=== PATIENT | female | born 1970 | race Caucasian/White ===

== ENCOUNTER 2018-10-05 15:43 | Emergency (ER) | payer MEDICARE, MEDICAID ==
[~2018-10-05] VITALS: Ht 162.6 cm; Wt 45.4 kg
[~2018-10-05 15:43] MED LIST: AMIT50TA3 PO; ASPI-789 PO; BUPR1PAT23; BUPR1PAT9 TD; ERYT1OIN6 OS; ESTR1TAB24; ESTR1TAB27 PO; FAMO20TA3 PO; FAMO20TA5; LAMO150T2; LAMO25TA8; LEVO150T6; LEVO175T5 PO; LEVO500T83 PO; MIRT30TA6; NF-LAMO200 PO; NITR100C PO; PREG100C; PREG100C PO; PRM12.5SU RC; PROM25TA14; PROM25TA14 PO; QUET50TA PO; TIZA2TAB4 PO; UBID1CAP53 PO; VITA1CAP PO
--- OUTSIDE RECORDS SUMMARY | 2018-10-05 15:48 | XMS REPORT | Continuity of Care Document ---
Author Organization Unknown Address Unknown Phone Unavailable Allergies There is no data. Medications There is no data. Problems There is no data. Procedures There is no data. Results Test Result Range AMYLASE - 06/09/18 10:30 AMYLASE 25 U/L 21-101 CULTURE, STOOL - 06/11/18 12:00 SALMONELLA AND SHIGELLA, CULTURE NRG CULTURE, URINE - 08/06/18 18:00 CULTURE, URINE, ROUTINE NRG TSH w/ FREE T4 - 08/21/18 11:30 TSH 0.70 mIU/L NRG T4, FREE 1.2 ng/dL 0.8-1.8 PDM - 09 PANEL (PROFILE 1) - 09/03/18 13:45 Prescribed Drug 1 Marinol(TM) NRG Creatinine 104.7 mg/dL > or=20.0 pH 7.07 4.5 - 9.0 Oxidant NEGATIVE mcg/mL <200 Amphetamines NEGATIVE ng/mL <500 medMATCH Amphetamines CONSISTENT NRG Benzodiazepines NEGATIVE CONFIRMED ng/mL <100 Marijuana Metabolite POSITIVE ng/mL <20 Cocaine Metabolite NEGATIVE ng/mL <150 medMATCH Cocaine Metab CONSISTENT NRG Opiates NEGATIVE ng/mL <100 medMATCH Opiates CONSISTENT NRG Oxycodone NEGATIVE ng/mL <100 medMATCH Oxycodone CONSISTENT NRG COMMENT NRG Alphahydroxyalprazolam NEGATIVE ng/mL <25 medMATCH aOH alprazolam CONSISTENT NRG Alphahydroxymidazolam NEGATIVE ng/mL <50 medMATCH aOH midazolam CONSISTENT NRG Alphahydroxytriazolam NEGATIVE ng/mL <50 medMATCH aOH triazolam CONSISTENT NRG Aminoclonazepam NEGATIVE ng/mL <25 medMATCH Aminoclonazepam CONSISTENT NRG Hydroxyethylflurazepam NEGATIVE ng/mL <50 medMATCH OH,Et flurazepam CONSISTENT NRG Lorazepam NEGATIVE ng/mL <50 medMATCH Lorazepam CONSISTENT NRG Nordiazepam NEGATIVE ng/mL <50 medMATCH Nordiazepam CONSISTENT NRG Oxazepam NEGATIVE ng/mL <50 medMATCH Oxazepam CONSISTENT NRG Temazepam NEGATIVE ng/mL <50 medMATCH Temazepam CONSISTENT NRG Marijuana Metabolite 381 ng/mL <5 medMATCH Marijuana Metab CONSISTENT NRG Barbiturates NEGATIVE ng/mL <300 medMATCH Barbiturates CONSISTENT NRG Methadone Metabolite NEGATIVE ng/mL <100 medMATCH Methadone Metab CONSISTENT NRG Phencyclidine NEGATIVE ng/mL <25 medMATCH Phencyclidine CONSISTENT NRG CULTURE, GENITAL - 09/20/18 16:37 CULTURE, GENITAL NRG Encounters ACCT No. Visit Date/Time Discharge Status Pt. Type Provider Facility Loc./Unit Complaint [id number] 09/20/2018 16:00:00 09/20/2018 23:59:59 [id number] 09/20/2018 16:00:00 Document Registration [id number] 09/03/2018 13:20:00 Document Registration [id number] 08/21/2018 09:20:00 Document Registration [id number] 08/06/2018 16:00:00 Document Registration [id number] 06/09/2018 10:00:00 Document Registration [id number] 06/03/2018 11:30:00 Document Registration
--- OUTSIDE RECORDS SUMMARY | 2018-10-05 15:48 | XMS REPORT ---
Author Author TORO ALEXANDER Organization [facility] Address [address] [place] [address] Care Team Providers Care Forklift Technician Name Role Phone BENJAMIN TORO Unavailable PROBLEMS Type Condition ICD9-CM Code ZIQ37-EL Code Onset Dates Condition Status SNOMED Code Problem Spasm of muscle M62.838 Nov, 0 16035545 Problem Mid back pain M54.9 Aug, 0 688542625 Problem Gastritis and duodenitis K29.90 Feb, 0 603875235 Problem H/O sciatica Z86.69 Sep, 0 Problem Spondylosis of lumbar region without myelopathy or radiculopathy M47.816 Nov, 0 98181238 Problem Abnormal weight loss R63.4 Aug, 0 966726568 Problem Sciatica M54.30 June, 0 29082980 Problem Tobacco abuse counseling Z71.6 May, 0 300177686 Problem Bulging lumbar disc M51.26 Apr, 0 46494043 Problem Anxiety and depression F41.9 Mar, 0 601249185 Problem Diarrhea R19.7 June, 0 50932474 Problem Acute back pain M54.9 Oct, 0 053709261 Problem Drug withdrawal F19.939 Jul, 0 336700435 Problem Migraine variant with headache 346.20 Jan, 0 233367419 Problem Poor venous access 459.89 June, 0 487520456 Problem Laryngitis, acute J04.0 Sep, 0 3164379 Problem H/O sciatica V12.49 Sep, 0 Problem Folliculitis and perifolliculitis L73.9 Jan, 0 74019076 Problem Bulging lumbar disc 722.10 Apr, 0 29409122 Problem TSH (thyroid-stimulating hormone deficiency) 244.8 Aug, 0 430870183 Problem Acute hemorrhoid 455.6 15 Jul, 2015 0 32117410 Problem Blurry vision, bilateral 368.8 Jan, 0 62204335 Problem TSH (thyroid-stimulating hormone deficiency) E03.8 Aug, 0 06182577 Problem Acute hemorrhoid K64.9 Jul, 0 49674413 Problem Folliculitis and perifolliculitis 704.8 Jan, 0 986223881 Problem Vaginal dryness N89.8 Sep, 0 28936759 Problem Hypokalemia E87.6 Apr, 0 58147785 Problem Acute left-sided back pain with sciatica 724.3 Dec, 0 59068893 Problem Anxiety and depression 300.00 Mar, 0 061535534 Problem Dehydration E86.0 Apr, 0 85129161 Problem Thoracic or lumbosacral neuritis or radiculitis, unspecified WNS8179 Apr, 0 597376866 Problem Acute gastritis without hemorrhage 535.00 Jul, 0 87211029 Problem Other and unspecified closed fractures of proximal end of radius (alone) S52.109A Sep, 0 36523246 Problem Spondylosis of lumbar region without myelopathy or radiculopathy 721.3 Nov, 0 26854038 Problem Tobacco abuse counseling V65.42 May, 0 955676017 Problem Acute midline thoracic back pain 724.1 Mar, 0 661440153 Problem Status post hemorrhoidectomy Z98.890 Sep, 0 094542630 Problem Diarrhea 787.91 June, 0 41961190 Problem Status post hemorrhoidectomy V45.89 Sep, 0 70009971 Problem Other and unspecified closed fractures of proximal end of radius (alone) 813.07 Sep, 0 70873884 Problem Migraine variant with headache G43.809 Jan, 0 747394202 Problem Abnormal weight loss 783.21 Aug, 0 908763442 Problem Laryngitis, acute 464.00 Sep, 0 6713734 Problem Mid back pain 724.5 Aug, 0 205059189 Problem Low serum T4 level R79.89 Mar, 0 290326424 Problem Hypokalemia 276.8 Apr, 0 06502636 Problem Low serum T4 level 794.5 Mar, 0 601678439 Problem Vaginal dryness 625.8 Sep, 0 78127924 Problem Neck pain on right side 723.1 Jan, 0 36858212 Problem Skin lesion 709.9 June, 0 44363689 Problem Acute back pain 724.5 Oct, 0 129586378 Problem Leukocytosis 288.60 Jul, 0 691821793 Problem Acute left-sided back pain with sciatica M54.42 Dec, 0 95747396 Problem Acute cystitis without hematuria 595.0 Jul, 0 70353809 Problem Reactive depression (situational) F32.9 Feb, 0 04487978 Problem Poor venous access I87.8 June, 0 518276600 Problem Acute gastritis without hemorrhage K29.00 Jul, 0 89319389 Problem Skin lesion L98.9 June, 0 39941017 Problem Blurry vision, bilateral H53.8 Jan, 0 33526185 Problem Dehydration 276.51 Apr, 0 82303760 Problem Lumbago M54.5 June, 0 393902349 Problem Leukocytosis D72.829 Jul, 0 327304709 Problem Acute midline thoracic back pain M54.6 Mar, 0 542207466 Problem Neck pain on right side M54.2 Jan, 0 01618925 Problem Cough R05 Aug, 0 78129026 Problem Acute cystitis without hematuria N30.00 Jul, 0 42774227 Problem Lumbago with sciatica, left side M54.42 Active 665398441 Problem Hypothyroidism (acquired) E03.9 Active 662642044 Problem Gastritis and duodenitis 535.50 Feb, 0 532962328 Problem Cough 786.2 Aug, 0 83798138 Problem Intractable cyclical vomiting with nausea G43.A1 Active 69362240 Problem Nausea with vomiting R11.2 Apr, 0 67458380 Problem Nausea with vomiting 787.01 Apr, 0 89318521 Problem Lumbago 724.2 June, 0 775734119 Problem Reactive depression (situational) 300.4 Feb, 0 10249721 Problem Spasm of muscle 728.85 Nov, 0 07130864 Problem Other chronic pain G89.29 Active 65027018 Problem Sciatica 724.3 June, 0 23544597 Problem Chronic fatigue R53.82 Active 33024008 Problem Thoracic or lumbosacral neuritis or radiculitis, unspecified 724.4 Apr, 0 050973156 Problem Chronic pain G89.29 Active 77312573 Problem Mood disorder F39 Active 67171356 Problem Drug withdrawal 292.0 Jul, 0 150974984 ALLERGIES No Information ENCOUNTERS Encounter Location Date Diagnosis [address] [address] May, TSH (thyroid-stimulating hormone deficiency) E03.8 [facility] [address] [address] May, [address] [address] May, [address] [address] May, [address] [address] May, Well woman exam (no gynecological exam) Z00.00 and Diarrhea, unspecified type R19.[address] [address] May, [facility] [id number], [place] [address] May, [address] [address] May, [address] [address] May, Intractable cyclical vomiting with nausea G43.A1 ; Chronic pain G89.29 ; Hypothyroidism (acquired) E03.9 ; Mood disorder F39 and Well woman exam (no gynecological exam) Z00.[address] [address] May, Intractable cyclical vomiting with nausea G43.A1 [address] [address] Apr, Breast lump in female N63.[address] [place] [address] Apr, Breast lump N63.0 [facility] [address] [place] [address], [place] [address] Apr, Breast lump in female N63.0 [facility] [address] [place] [address] Apr, [facility] [id number] [place] [address], [place] [address] Apr, [facility] [id number] [place] [address], [place] [address] Apr, Abdominal pain R10.9 [facility] [id number] [place] [address], [place] [address] Apr, Generalized abdominal pain R10.84 and Chronic pain G89.29 [facility] [id number] [place] [address], [place] [address] Apr, [facility] [address] [place] [address], [place] [address] Apr, Breast lump in female N63.0 [facility] [id number] [place] [address], [place] [address] Apr, [facility] [address] [place] [address], [place] [address] Apr, [facility] [address] [place] [address], [place] [address] Apr, [facility] [id number] [place] [address], [place] [address] Apr, Cachexia R64 and Lumbago with sciatica, left side M54.42 [facility] [id number] [place] [address], [place] [address] Mar, [facility] [id number] [place] [address], [place] [address] Mar, [facility] [id number] [place] [address], [place] [address] Mar, Diarrhea, unspecified type R19.7 [facility] [id number] [place], [place] [address]ER [facility] [place] [address] Mar, [facility] [id number] [place] [address], [place] [address] Mar, Vomiting, unspecified R11.10 ; Generalized abdominal pain R10.84 and Viral gastroenteritis A08.[address] [address] Mar, [address] [address] Feb, Lumbago with sciatica, left side M54.42 [place] [id number] [place] [address] Feb, [address] [address] Feb, Urinary pain R30.9 ; Hematuria R31.9 ; Leukocytes in urine R82.998 ; Acute cystitis with hematuria N30.01 ; Lumbago with sciatica, left side M54.42 ; Other chronic pain G89.29 and Well woman exam (no gynecological exam) Z00.[address] [address] Feb, [place] [id number] [place] [address] Jan, [place] [id number] [place] [address] Jan, [place] [id number] [place] [address] Dec, [place] [id number] [place] [address] Nov, IMMUNIZATIONS No Known Immunizations SOCIAL HISTORY Never Assessed REASON FOR VISIT med refill PLAN OF CARE VITAL SIGNS MEDICATIONS Medication Instructions Dosage Frequency Start Date End Date Duration Status Butrans 20 MCG/HR Transdermal once weekly on Fridays 1 patch to skin 28 days Active RESULTS No Results PROCEDURES No Known procedures INSTRUCTIONS MEDICATIONS ADMINISTERED No Known Medications MEDICAL (GENERAL) HISTORY Type Description Date Medical History Spinal cord stimulator status Medical History Other dorsalgia Medical History Other chronic pain Medical History Cluster headache Medical History Pleurisy Medical History Fibromyalgia Medical History Hormone imbalance Medical History Malignant neoplasm of thyroid gland Medical History Hypothyroidism, unspecified Medical History Bipolar disorder, currently in remission, most recent episode unspecified Medical History Nausea Medical History Abnormal weight loss Surgical History tonsillectomy and adenoidectomy Surgical History hysterectomy Surgical History thyroidectomy, complete Surgical History section Surgical History carpal tunnel release left wrist x 1, right wrist x 2 Surgical History right knee arthroscopy Hospitalization History surgeries
--- OUTSIDE RECORDS SUMMARY | 2018-10-05 15:48 | XMS REPORT ---
Author Author KATHY DUMONT Organization [facility] Address [address] [place] [address] Care Team Providers Care Music Executive Name Role Phone TIMERMIASKATHY Unavailable PROBLEMS Type Condition ICD9-CM Code FRU07-NA Code Onset Dates Condition Status SNOMED Code Problem Acute left-sided back pain with sciatica M54.42 Dec, Active 07417104 Problem Reactive depression (situational) F32.9 Feb, Active 22414875 Problem Poor venous access I87.8 June, Active 113828448 Problem Acute gastritis without hemorrhage K29.00 Jul, Active 56961160 Problem Acute back pain M54.9 Oct, Active 405422059 Problem Blurry vision, bilateral H53.8 Jan, Active 95865938 Problem Drug withdrawal F19.939 Jul, Active 185165296 Problem Skin lesion L98.9 June, Active 54958347 Problem Gastritis and duodenitis K29.90 Feb, Active 348796924 Problem Acute midline thoracic back pain M54.6 Mar, Active 259581808 Problem Spasm of muscle M62.838 Nov, Active 06547573 Problem Acute cystitis without hematuria N30.00 Jul, Active 68964317 Problem Other and unspecified closed fractures of proximal end of radius (alone) S52.109A Sep, Active 49775922 Problem Cough R05 Aug, Active 61160837 Problem Thoracic or lumbosacral neuritis or radiculitis, unspecified UCU8672 Apr, Active 879295549 Problem Nausea with vomiting R11.2 Apr, Active 96014224 Problem Status post hemorrhoidectomy Z98.890 Sep, Active 328775870 Problem Diarrhea R19.7 June, Active 92596441 Problem Sciatica M54.30 June, Active 25029474 Problem Hypokalemia E87.6 Apr, Active 66504553 Problem Laryngitis, acute J04.0 Sep, Active 8409809 Problem Anxiety and depression F41.9 Mar, Active 066216153 Problem Vaginal dryness N89.8 Sep, Active 42659421 Problem Lumbago M54.5 June, Active 002212247 Problem Migraine variant with headache G43.809 Jan, Active 049959947 Problem Dehydration E86.0 Apr, Active 48564697 Problem Folliculitis and perifolliculitis L73.9 Jan, Active 49624311 Problem Abnormal weight loss R63.4 Aug, Active 608387046 Problem Acute bilateral low back pain M54.5 Active 950237770 Problem Tobacco abuse counseling Z71.6 May, Active 894750120 Problem Low serum T4 level R79.89 Mar, Active 893232190 Problem Lumbago with sciatica, left side M54.42 Active 444364545 Problem Other chronic pain G89.29 Active 86880644 Problem Chronic fatigue R53.82 Active 11863251 Problem Bipolar 1 disorder, depressed, moderate F31.32 Active 95617230 Problem Leukocytosis D72.829 Jul, Active 242214150 Problem Spondylosis of lumbar region without myelopathy or radiculopathy M47.816 Nov, Active 56460120 Problem Vaginal bleeding N93.9 Active 403112236 Problem Neck pain on right side M54.2 Jan, Active 63054097 Problem Mid back pain M54.9 Aug, Active 756347599 Problem Acute hemorrhoid K64.9 Jul, Active 93643066 Problem Bulging lumbar disc M51.26 Apr, Active 38570687 Problem H/O sciatica Z86.69 Sep, Active Problem Chronic pain G89.29 Active 10827454 Problem Hypothyroidism (acquired) E03.9 Active 576870719 Problem TSH (thyroid-stimulating hormone deficiency) E03.8 Aug, Active 76811952 Problem Mood disorder F39 Active 96506721 Problem Intractable cyclical vomiting with nausea G43.A1 Active 56022272 ALLERGIES Substance Reaction Event Type Date Status Codeine Sulfate stopped breathing Drug Allergy Apr, Active Chocolate Flavor nausea and vomiting Drug Allergy Apr, Active Bactrim DS nausea and vomiting Drug Allergy Apr, Active Stadol hives Drug Allergy Apr, Active ENCOUNTERS Encounter Location Date Diagnosis [address] [address] Sep, [address] [address] Aug, Vaginal bleeding N93.9 and Vaginal discharge N89.8 [facility] [id number] [address] Aug, [address] [address] Aug, Bipolar 1 disorder, depressed, moderate F31.32 ; Acute bilateral low back pain M54.5 and Hx of migraine headaches Z86.69 [facility] [id number] [address] Aug, [address] [address] Aug, [address] [address] Aug, Other chronic pain G89.29 ; Intractable cyclical vomiting with nausea G43.A1 and senior care (current) use of opiate analgesic Z79.[address] [address] Aug, Intractable cyclical vomiting with nausea G43.A1 ; Cachexia R64 and Dehydration E86.[address] [address] Aug, [address] [address] Jul, Chest pain, unspecified type R07.9 ; Other chronic pain G89.29 ; Drug-induced 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 ; Low back pain M54.5 and Weight loss R63.[address] [address] Jul, [address] [address] Jul, [address] [address] Jul, Hordeolum externum left upper eyelid H00.[address] [address] Jul, Acute cystitis N30.00 and Pain passing urine R30.[address] [address] Jul, [address] [address] Jul, Chronic pain G89.[address] [address] Jul, [address] [address] June, [address] [place] [address] June, [address] [address] June, [address] [address] May, TSH (thyroid-stimulating hormone deficiency) E03.8 [address] [place] [address] May, [address] [address] May, [address] [address] May, [address] [address] May, Well woman exam (no gynecological exam) Z00.00 and Diarrhea, unspecified type R19.[address] [address] May, [address] [place] [address] May, [address] [address] May, [address] [address] May, Intractable cyclical vomiting with nausea G43.A1 ; Chronic pain G89.29 ; Hypothyroidism (acquired) E03.9 ; Mood disorder F39 and Well woman exam (no gynecological exam) Z00.00 [facility] [address] [place] [address] May, Intractable cyclical vomiting with nausea G43.A1 [facility] [address] [address] Apr, Breast lump in female N63.[address] [address] Apr, Breast lump N63.[address] [address] Apr, Breast lump in female N63.0 [facility] [place] [address] [place] [address] Apr, [facility] [place] [address] [place] [address] Apr, [facility] [address] [place] [address] Apr, Abdominal pain R10.9 [facility] [place] [address] [place] [address] Apr, Generalized abdominal pain R10.84 and Chronic pain G89.29 [facility] [place] [address] [place] [address] Apr, [facility] [address] [place] [address] Apr, Breast lump in female N63.0 [facility] [address] [place] [address] Apr, [facility] [address] [place] [address] Apr, [facility] [address] [place] [address] Apr, [facility] [address] [address] Apr, [facility] [place] [address] [place] [address] Apr, Cachexia R64 and Lumbago with sciatica, left side M54.42 [facility] [place] [address] [place] [address] Mar, [address] [address] Mar, [address] [address] Mar, Diarrhea, unspecified type R19.7 [facility] [address] [address] Mar, [address] [address] Mar, Vomiting, unspecified R11.10 ; Generalized abdominal pain R10.84 and Viral gastroenteritis A08.[address] [address] Mar, [address] [address] Feb, Lumbago with sciatica, left side M54.42 [id number] [place] [address] Feb, [address] [address] Feb, Urinary pain R30.9 ; Hematuria R31.9 ; Leukocytes in urine R82.998 ; Acute cystitis with hematuria N30.01 ; Lumbago with sciatica, left side M54.42 ; Other chronic pain G89.29 and Well woman exam (no gynecological exam) Z00.00 [facility] [address] [address] Feb, [address] [address] Feb, [facility] [address] [place] [address] Jan, [facility] [id number] [place] [address] Jan, [facility] [id number] [place] [address] Dec, [facility] [id number] [address] Nov, [facility] [address] [place] [address] May, [facility] [address] [address] May, [facility] [address] [address] Sep, [facility] [address] [address] Sep, [facility] [address] [address] Sep, [facility] [address] [place] [address] Sep, [facility] [address] [address] Aug, [facility] [id number] [place] [address] Aug, [facility] [address] [address] Aug, [facility] [address] [address] Aug, IMMUNIZATIONS Vaccine Route Administration Date Status TORADOL (IM) 60 MG/2ML (UP TO 15 MG) IM Intramuscular April 29, 2018 Administered SOCIAL HISTORY Never Assessed REASON FOR VISIT States still not feeling well, states still not much of an appetite. States does see Pain Management at again on 05-06-18. Possible Gastro/Endricro Referral PLAN OF CARE Activity Details Follow Up Will make referral to Dr. Sharp for treatment and evaluation Reason: VITAL SIGNS Height 67" in 2018-04-29 Weight 110lb lbs 2018-04-29 Temperature 98.6 degrees Fahrenheit 2018-04-29 Heart Rate 84 bpm 2018-04-29 Oximetry 98 % 2018-04-29 BMI 17.23 kg/m2 2018-04-29 Blood pressure systolic 118 mmHg 2018-04-29 Blood pressure diastolic 65 mmHg 2018-04-29 MEDICATIONS Medication Instructions Dosage Frequency Start Date End Date Duration Status Famotidine 20 MG Take 1 Tablet (20 mg) by mouth 2 times daily.. Active Lyrica 100 MG Orally tid 1 capsule 8h 28 days Active Mirtazapine 30 MG Orally Once a day 1 tablet at bedtime 24h 30 day(s) Unknown Excedrin Migraine 250-250-65 MG Orally Once a day 2 tablets 24h 30 day(s) Not-Taking Tizanidine HCl 2 MG Orally Three times a day 1 tablet as needed 8h Active Levothyroxine Sodium 150 MCG Orally Once a day 1 capsule on an empty stomach in the morning 24h 30 day(s) Active Butrans 20 MCG/HR Transdermal once weekly on Fridays 1 patch to skin 28 days Active Lamictal 200 MG Orally once daily at bedtime 1 tablet Active Pepcid 20 MG Orally Once a day 1 tablet at bedtime 24h 30 day(s) Active Oxygen Active Zofran 4 MG Orally Twice a day as needed for nausea 1 tablet 30 day(s) Active Estradiol 1 MG Orally Once a day 1 tablet 24h 30 day(s) Active Compazine Active Prochlorperazine Maleate 10 MG Orally Three times a day 1 tablet 8h 11 Mar, 2018 10 days Active RESULTS No Results PROCEDURES Procedure Date Ordered Result Body Site COUNT INCLUDES THE [facility] VISIT ESTABLISHED PATIENT April 29, 2018 THER/PROPH/DIAG INJ, SC/IM April 29, 2018 TORADOL (IM) 60 MG/2ML (UP TO 15 MG) April 29, 2018 INSTRUCTIONS MEDICATIONS ADMINISTERED No Known Medications MEDICAL [...]
--- OUTSIDE RECORDS SUMMARY | 2018-10-05 15:48 | XMS REPORT ---
Author Author KATHY DUMONT [facility] Address [address] [place] [address] Care Team Providers Care Thermal Spray Operator Name Role Phone KATHY DUMONT Unavailable PROBLEMS Type Condition ICD9-CM Code OYA64-RM Code Onset Dates Condition Status SNOMED Code Problem Chronic fatigue R53.82 Active 26974624 Problem Chronic pain G89.29 Active 96018853 Problem Lumbago with sciatica, left side M54.42 Active 257052313 Problem Other chronic pain G89.29 Active 95708935 ALLERGIES No Information ENCOUNTERS Encounter Location Date Diagnosis [facility] [address] [address] Apr, [address] [address] Apr, Breast lump in female N63.[address] [address] Apr, Breast lump N63.[address] [address] Apr, Breast lump in female N63.0 [facility] [address] [address] Apr, [address] [address] Apr, [facility] [id number] [place] [address] Apr, Abdominal pain R10.[address] [address] Apr, Generalized abdominal pain R10.84 and Chronic pain G89.29 [facility] [id number] [place] [address] Apr, [facility] [address] Apr, Breast lump in female N63.[address] [address] Apr, [address] [address] Apr, [address] [address] Apr, [address] [address] Apr, Cachexia R64 and Lumbago with sciatica, left side M54.[address] [address] Mar, [address] [address] Mar, [address] [address] Mar, Diarrhea, unspecified type R19.[address] [address] Mar, [address] [address] Mar, Vomiting, unspecified R11.10 ; Generalized abdominal pain R10.84 and Viral gastroenteritis A08.[address] [address] Mar, [address] [address] Feb, Lumbago with sciatica, left side M54.[address] [address] Feb, Urinary pain R30.9 ; Hematuria R31.9 ; Leukocytes in urine R82.998 ; Acute cystitis with hematuria N30.01 ; Lumbago with sciatica, left side M54.42 ; Other chronic pain G89.29 and Well woman exam (no gynecological exam) Z00.[address] [address] Feb, IMMUNIZATIONS No Known Immunizations SOCIAL HISTORY Never Assessed REASON FOR VISIT medication PLAN OF CARE VITAL SIGNS MEDICATIONS Medication [...]
--- NOTE | 2018-10-05 16:12 | ED General ---
General Chief Complaint: Allergic Reaction Stated Complaint: ALLERGIC REACTION TO ONE OF HER MEDS Nursing Triage Note: patient states was started on hyoscamine three days ago and started having a bad migraine the same day. Yesterday started to become hoarse, has painful swallowing, and lips feel numb and swollen. The doctor from [facility] directed the patient to be seen in ED due to possible angioedema. Patient denies any difficulty breathing. Nursing Sepsis Screen: No Definite Risk History of Present Illness Date Seen by Provider: Oct 05, 2018 Time Seen by Provider: 16:07 Initial Comments above hx is accurate has some sore throat and hoarse voice never SOB no swelling lips tongue or throat has stopped new med says here to rule out angioedema Allergies and Home Medications Allergies Coded Allergies: Sulfa (Sulfonamide Antibiotics) (Unverified Allergy, Unknown, 04/15/18) butorphanol (Unverified Allergy, Unknown, 04/15/18) codeine (Unverified Allergy, Unknown, 04/15/18) Home Medications Amitriptyline HCl 50 Mg Tablet, 25 MG PO HS, (Reported) Aspirin/Acetaminophen/Caffeine 1 Each Tablet, 2 TAB PO Q6-8HR PRN for MIGRAINE, (Reported) Buprenorphine 1 Each Patch.tdwk, 15 MCG TD Fr, (Reported) Erythromycin Base 1 Gm Oint...g., 0 OS QID, (Reported) 10 DAY SUPPLY FILLED 08-10-18 APPLY 1/2 INCH RIBBON Estradiol 1 Mg Tablet, 1 MG PO DAILY, (Reported) Famotidine 20 Mg Tablet, 20 MG PO BID, (Reported) Levocarnitine 500 Mg Tablet, 500 MG PO DAILY, (Reported) Levothyroxine Sodium 175 Mcg Tablet, 175 MCG PO DAILY, (Reported) Nitrofurantoin Macrocrystal 100 Mg Capsule, 100 MG PO Q12H, (Reported) 7 DAY THERAPY FILLED 08-06-18 Pregabalin 100 Mg Capsule, 100 MG PO BID, (Reported) LAST FILLED #84 04-18-18 Promethazine HCl 25 Mg Tablet, 25 MG PO Q12H PRN for NAUSEA/VOMITING-2ND LINE, (Reported) Promethazine HCl 12.5 Mg Supp, 12.5 MG RC Q6H PRN for NAUSEA/VOMITING-2ND LINE, (Reported) Ubidecarenone/Vit E Acetate 1 Each Capsule, 100 MG PO HS, (Reported) Vitamin B Complex 1 Each Capsule, 1 CAP PO HS, (Reported) Patient Home Medication List Home Medication List Reviewed: Yes Review of Systems Review of Systems Constitutional: No chills, No fever EENTM: throat pain (milld) Respiratory: no symptoms reported; No short of breath, No wheezing Cardiovascular: No no symptoms reported Gastrointestinal: No abdominal pain, No vomiting Skin: No rash Past Ojtmjxk-Bclnsl-Ufewyv Hx Patient Social History Alcohol Use: Denies Use Recreational Drug Use: No Smoking Status: Current Everyday Smoker Type Used: Cigarettes 2nd Hand Smoke Exposure: Yes Recent Foreign Travel: No Contact w/Someone Who Travel: No Recent Infectious Disease Expo: No Recent Hopitalizations: No Physical Abuse: No Sexual Abuse: No Mistreated: No Fear: No Immunizations Up To Date Tetanus Booster (TDap): Less than 5yrs Seasonal Allergies Seasonal Allergies: No Past Medical History Surgeries: Yes (Bilateral carpal tunnel, Nevro HF10 Spinal Cord Stimulator, Arthroscopy Rt) Section, Gallbladder, Hysterectomy, Tonsillectomy Respiratory: No Cardiac: No Neurological: Yes 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 Sexually Transmitted Disease: No HIV/AIDS: No Genitourinary: Yes Kidney Infection, Bladder Infection Gastrointestinal: No Musculoskeletal: Yes Osteoporosis, Fibromyalgia, Chronic Back Pain Endocrine: No HEENT: No Cancer: Yes Thyroid Did You Recieve Any Treatments: Yes What Type of Treatment Did You: Other Psychosocial: Yes Bipolar Integumentary: No Blood Disorders: No Family Medical History Cardiovascular disease 19 FATHER Physical Exam Vital Signs Vital Signs - First Documented 10/05/18 15:53 Temp 98.3 Pulse 110 Resp 18 B/P (MAP) 126/84 (98) Pulse Ox 99 Capillary Refill : Less Than 3 Seconds Height, Weight, BMI Height: 5'4.00" Weight: 100lbs. oz. 45.820270kz; BMI Method:Stated General Appearance: No Apparent Distress Eyes: Bilateral Eye PERRL, Bilateral Eye EOMI HEENT: PERRL/EOMI, Moist Mucous Membranes, Other (no swelling of lips tongue or throat voice is hoarse) Neck: Supple Respiratory: Lungs Clear Cardiovascular: Regular Rate, Rhythm Gastrointestinal: Non Tender, Soft Progress/Results/Core Measures Suspected Sepsis Recent Fever Within 48 Hours: No Infection Criteria Present: None New/Unexplained Altered Menta: No Sepsis Screen: No Definite Risk SIRS Temperature:98.3 Pulse: 110 Respiratory Rate: 18 Blood Pressure 126 /84 Mean: 98 Results/Orders Vital Signs/I&O 10/05/18 15:53 Temp 98.3 Pulse 110 Resp 18 B/P (MAP) 126/84 (98) Pulse Ox 99 Capillary Refill : Less Than 3 Seconds Blood Pressure Mean: 98 Departure Impression Primary Impression: Laryngitis Disposition: 01 HOME, SELF-CARE Condition: Stable Departure-Patient Inst. Decision time for Depature: 16:13 [facility] Primary Care Physician KATHY DUMONT APRN (Family) Primary Care Physician Patient Instructions: Laryngitis JF JACKSON MD Oct 05, 2018 16:12
[2018-10-05 16:38] VITALS: BP 126/84
== END 2018-10-05 16:45 | disposition home or self-care (01) ==
LOC: EDUNIT# 15:43 → ER FS 15:44
DX: J04.0 Acute laryngitis (principal); G43.909 Migraine, unspecified, not intractable, without status migrainosus; M79.7 Fibromyalgia; F31.9 Bipolar disorder, unspecified; F17.210 Nicotine dependence, cigarettes, uncomplicated; Z85.850 Personal history of malignant neoplasm of thyroid; Z90.710 Acquired absence of both cervix and uterus; Z90.89 Acquired absence of other organs; Z88.5 Allergy status to narcotic agent; Z88.2 Allergy status to sulfonamides; Z88.8 Allergy status to other drugs, medicaments and biological substances; Z79.82 Long term (current) use of aspirin; Z79.52 Long term (current) use of systemic steroids; Z82.49 Family history of ischemic heart disease and other diseases of the circulatory system
CPT/HCPCS: 99281

== ENCOUNTER 2019-01-25 17:42 | Emergency (ER) | payer MEDICARE, MEDICAID ==
[~2019-01-25] VITALS: Ht 162.6 cm; Wt 50.0 kg
[2019-01-25 18:00] LABS: CLARITY,URINE CLOUDY; COLOR,URINE YELLOW
[2019-01-25] MEDS ORDERED: KETOROLAC 60 MG/2 ML VIAL IM ONE (18:00)
[2019-01-25 18:01] LABS: BACTERIA,URINE LARGE /HPF; BILIRUBIN,URINE NEGATIVE (NEGATIVE); GLUCOSE, URINE (UA) NEGATIVE (NEGATIVE); KETONES,URINE NEGATIVE (NEGATIVE); LEUKOCYTE ESTERASE ,URINE 3+ (NEGATIVE); NITRITE,URINE POSITIVE (NEGATIVE); PROTEIN,URINE 2+ (NEGATIVE); RBC,URINE 25-50 /HPF; SQUAMOUS EPITHELIAL CELL,UR 0-2 /HPF; WBC,URINE TNTC /HPF
--- NOTE | 2019-01-25 18:07 | ED GU-Female ---
General Stated Complaint: PAINFUL URINATION, ABD PAIN Source: patient Exam Limitations: no limitations History of Present Illness Date Seen by Provider: Jan 25, 2019 Time Seen by Provider: 17:48 Initial Comments Patient presents to ER by private conveyance with chief complaint of 2 days progressively worsening dysuria. Her plan was to make it to Saturday and call her doctor for UTI medications. She has a history of multiple UTIs but has never followed up with urology. She has never had a kidney stone and is not seeing any blood in her urine or having any flank pain. She doesn't history of fibromyalgia, cyclic vomiting syndrome and back pain and has a spinal stimulator implanted. She took some AZO yesterday which helped with the pain but that has persisted. No fevers chills or abdominal pain. Allergies and Home Medications Allergies Coded Allergies: Sulfa (Sulfonamide Antibiotics) (Unverified Allergy, Unknown, 04/15/18) butorphanol (Unverified Allergy, Unknown, 04/15/18) codeine (Unverified Allergy, Unknown, 04/15/18) Home Medications Amitriptyline HCl 50 Mg Tablet, 25 MG PO HS, (Reported) Aspirin/Acetaminophen/Caffeine 1 Each Tablet, 2 TAB PO Q6-8HR PRN for MIGRAINE, (Reported) Buprenorphine 1 Each Patch.tdwk, 15 MCG TD Fr, (Reported) Cephalexin 500 Mg Tablet, 500 MG PO BID Prescribed by: JEEVAN RODRIGES on 01/25/191808 Erythromycin Base 1 Gm Oint...g., 0 OS QID, (Reported) 10 DAY SUPPLY FILLED 08-10-18 APPLY 1/2 INCH RIBBON Estradiol 1 Mg Tablet, 1 MG PO DAILY, (Reported) Famotidine 20 Mg Tablet, 20 MG PO BID, (Reported) Levocarnitine 500 Mg Tablet, 500 MG PO DAILY, (Reported) Levothyroxine Sodium 175 Mcg Tablet, 175 MCG PO DAILY, (Reported) Nitrofurantoin Macrocrystal 100 Mg Capsule, 100 MG PO Q12H, (Reported) 7 DAY THERAPY FILLED 08-06-18 Pregabalin 100 Mg Capsule, 100 MG PO BID, (Reported) LAST FILLED #84 04-18-18 Promethazine HCl 25 Mg Tablet, 25 MG PO Q12H PRN for NAUSEA/VOMITING-2ND LINE, (Reported) Promethazine HCl 12.5 Mg Supp, 12.5 MG RC Q6H PRN for NAUSEA/VOMITING-2ND LINE, (Reported) Ubidecarenone/Vit E Acetate 1 Each Capsule, 100 MG PO HS, (Reported) Vitamin B Complex 1 Each Capsule, 1 CAP PO HS, (Reported) Patient Home Medication List Home Medication List Reviewed: Yes Review of Systems Review of Systems Constitutional: No chills, No fever EENTM: No ear discharge, No ear pain Respiratory: No cough, No short of breath Cardiovascular: No chest pain, No edema Gastrointestinal: No abdominal pain, No constipation, No diarrhea, No nausea Genitourinary: see HPI, burning; denies discharge; dysuria Musculoskeletal: No back pain, No joint pain All Other Systemes Reviewed Negative Unless Noted: Yes Past [place] Hx Patient Social History Alcohol Use: Denies Use Recreational Drug Use: No Smoking Status: Current Everyday Smoker Type Used: Cigarettes 2nd Hand Smoke Exposure: Yes Recent Hopitalizations: No Immunizations Up To Date Tetanus Booster (TDap): Less than 5yrs Seasonal Allergies Seasonal Allergies: No Past Medical History Surgeries: Yes (Bilateral carpal tunnel, Nevro HF10 Spinal Cord Stimulator, Arthroscopy Rt) Section, Gallbladder, Hysterectomy, Tonsillectomy Respiratory: No Cardiac: No 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 Sexually Transmitted Disease: No HIV/AIDS: No Genitourinary: Yes Kidney Infection, Bladder Infection Gastrointestinal: No Musculoskeletal: Yes Osteoporosis, Fibromyalgia, Chronic Back Pain Endocrine: No HEENT: No Cancer: Yes Thyroid Did You Recieve Any Treatments: Yes What Type of Treatment Did You: Other Psychosocial: Yes Bipolar Integumentary: No Blood Disorders: No Family Medical History Cardiovascular disease 19 FATHER Physical Exam Vital Signs Vital Signs - First Documented 01/25/19 17:50 Temp 36.7 Pulse 89 Resp 20 B/P (MAP) 122/88 (99) Pulse Ox 99 O2 Delivery Room Air Capillary Refill : Height, Weight, BMI Height: 5'4.00" Weight: 100lbs. oz. 45.935230js; BMI Method:Stated General Appearance: WD/WN, mild distress HEENT: PERRL/EOMI, pharynx normal Cardiovascular: normal peripheral pulses, regular rate, rhythm Respiratory: no respiratory distress, no accessory muscle use Gastrointestinal: normal bowel sounds, non tender, soft Back: normal inspection, no CVA tenderness Extremities: normal range of motion, non-tender Neurologic/Psychiatric: alert, normal mood/affect, oriented x 3 Skin: normal color, warm/dry Progress/Results/Core Measures Suspected Sepsis SIRS Temperature: Pulse: Respiratory Rate: Blood Pressure / Mean: Results/Orders Lab Results Laboratory Tests Test 01/25/19 17:45 Range/Units Urine Color YELLOW Urine Clarity CLOUDY Urine pH 6.0 5-9 Urine Specific [employer] 1.025 H 1.016-1.022 Urine Protein 2+ H NEGATIVE Urine Glucose (UA) NEGATIVE NEGATIVE Urine Ketones NEGATIVE NEGATIVE Urine Nitrite POSITIVE H NEGATIVE Urine Bilirubin NEGATIVE NEGATIVE Urine Urobilinogen 0.2 < = 1.0 MG/DL Urine Leukocyte Esterase 3+ H NEGATIVE Urine RBC (Auto) 3+ H NEGATIVE Urine RBC 25-50 H /HPF Urine WBC TNTC H /HPF Urine Squamous Epithelial Cells 0-2 /HPF Urine Crystals NONE /LPF Urine Bacteria LARGE H /HPF Urine Casts NONE /LPF Urine Mucus NEGATIVE /LPF Urine Culture Indicated YES My Orders Orders - JEEVAN RODRIGES Urine Bedside (01/25/19 17:46) Ua Culture If Indicated (01/25/19 17:46) Ketorolac Injection (Toradol Injection) (01/25/19 18:00) Urine Culture (01/25/19 17:45) Ct Abd/Pelvis Wo(Kidney Stone) (01/25/19 18:14) Cephalexin Capsule (Keflex Capsule) (01/25/19 18:45) Medications Given in ED Current Medications Medications Dose Ordered Sig/Davidson Route Start Time Stop Time Status Last Admin Dose Admin Cephalexin HCl 500 mg ONCE ONCE PO 01/25/19 18:45 01/25/19 18:46 DC 01/25/19 18:49 500 MG Ketorolac Tromethamine 60 mg ONCE ONCE IM 01/25/19 18:00 01/25/19 18:01 DC 01/25/19 18:08 60 MG Vital Signs/I&O 01/25/19 17:50 Temp 36.7 Pulse 89 Resp 20 B/P (MAP) 122/88 (99) Pulse Ox 99 O2 Delivery Room Air Capillary Refill : Progress Note #1: Time: 18:04 Progress Note Toradol for her dysuria. Urinalysis. She has aseptic vital signs. No history of kidney stone and no flank pain. With her reported history of multiple UTIs it would be reasonable to follow up with urology. Progress Note #2: Time: 18:15 Progress Note The patient's urinalysis does have some red blood cells in it and she does give the history that this is a little different from her normal bladder infections so we did offer to do a CT scan of her abdomen pelvis without IV contrast looking for kidney stones and after she discussed it with her she decided that that would be a good idea. Diagnostic Imaging Diagonstic Imaging: CT (without IV contrast kidney stone study) Plain Films/CT/US/NM/MRI: abdomen, pelvis Comments No renal lithiasis or ureterolithiasis. No evidence of ureteral obstruction or dilatation. Mild thickening of the bladder which could represent cystitis versus under distention. Other abdominal viscera unremarkable. No acute osseous abnormalities. Spinal stimulator noted. Paucity of intra-abdominal adipose tissue makes this study technically difficult. Reviewed: Reviewed by Me Departure Impression Primary Impression: Urinary tract infection Qualified Codes: N30.01 - Acute cystitis with hematuria Disposition: HOME, SELF-CARE Condition: Stable Departure-Patient Inst. Decision time for Depature: 19:46 Referrals: [facility] (PCP) Primary Care Physician KATHY DUMONT APRN (Family) Primary Care Physician WILLIE HUNT MD Patient Instructions: Urinary Tract Infection, Adult (DC) Add. Discharge Instructions: Drink lots of fluids. Use your AZO as well as Tylenol 1000 mg every 8 hours and ibuprofen 800 mg every 8 hours as necessary to control your symptoms. Start taking Keflex one capsule twice daily for the next [address] Hunt, urology and request follow-up appointment to explore why you have so many urinary tract infections. Scripts Cephalexin (Cephalexin) 500 Mg Tablet 500 MG PO BID for 7 Days, #14 TAB 0 Refills Prov: JEEVAN RODRIGES 01/25/19 Copy Copies To 1: WILLIE HUNT MD, TITUS J Jan 25, 2019 18:07 POS
[2019-01-25] MEDS ORDERED: CEPH500T PO (18:09)
[2019-01-25] MEDS ORDERED: CEPHALEXIN 250 MG (KEFLEX) CAP PO ONE (18:45)
[2019-01-25 19:49] VITALS: BP 98/53
--- NOTE | 2019-01-25 19:56 | Diagnostic Imaging Report ---
PROCEDURE: CT urinary tract, rule out kidney stone. TECHNIQUE: Multiple contiguous axial images were obtained through the abdomen and pelvis without the use of intravenous contrast. Auto Exposure Controls were utilized during the CT exam to meet ALARA standards for radiation dose reduction. DATE: January 25, 2019. COMPARISON: None. INDICATION: 49-year-old female, left lower quadrant abdominal pain. FINDINGS: There are limitations for evaluation of the abdominal organs, neoplastic processes, abscess, and limited evaluation of the vasculature relating to the lack of intravenous contrast. The visualized portions of the lung bases are clear. Heart is not enlarged. There is no pericardial effusion. There is an elongated left lobe of the liver. The liver is unremarkable in size and contour. The patient is status post cholecystectomy. There is no biliary ductal dilation. The main pancreatic duct is not grossly dilated. Very limited noncontrast evaluation of the pancreatic parenchyma is unremarkable. The spleen is normal in size. The adrenal glands are unremarkable. Unremarkable appearance of the renal parenchyma. The urinary collecting systems are not distended. There is no identified renal or ureteral stone. The urinary bladder is under distended and not well evaluated. Uterus is not well seen and may be surgically absent. The intestinal tract is not distended. The appendix is not well seen. There are no identified secondary findings to specifically suggest acute appendicitis. There is no free intraperitoneal air. There is no drainable fluid collection. There is no sizable volume free pelvic fluid. There are atherosclerotic calcifications. There is no identified abnormally enlarged lymph node in the abdomen or pelvis which meet CT size criteria for adenopathy. There are intraspinal leads present extending to the superior margin of the field of view. There is no identified acute bony abnormality. IMPRESSION: CT abdomen and pelvis. 1. No identified acute abnormality in the abdomen or pelvis. Dictated by: Dictated on workstation # [id number]
--- OUTSIDE RECORDS SUMMARY | 2019-02-19 10:44 | XMS REPORT ---
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 Intern Name Role Phone THADDEUSHERBERTH MYRICKY Unavailable PROBLEMS Type Condition ICD9-CM Code VWH22-JO Code Onset Dates Condition S tatus SNOMED Code Problem Acute left-sided back pain with sciatica M54.42 Dec, Active 07341231 Problem Reactive depression (situational) F32.9 Feb Active 06205879 Problem Poor venous access I87.8 June, Active 164374333 Problem Acute gastritis without hemorrhage K29.00 2017 Active 13279428 Problem Acute back pain M54.9 Oct, Active 1 91290992 Problem Blurry vision, bilateral H53.8 Jan, Ac tive 25389851 Problem Drug withdrawal F19.939 Jul, Active 3 75641865 Problem Skin lesion L98.9 June, Active 94945 001 Problem Gastritis and duodenitis K29.90 Feb, Ac tive 103140219 Problem Acute midline thoracic back pain M54.6 Mar, Active 961918142 Problem Spasm of muscle M62.838 Nov, Active 4 2516267 Problem Acute cystitis without hematuria N30.00 Jul, Active 60212673 Problem Other and unspecified closed fractures of proximal end of radius (alone) S52.109A Sep, Active 95261022 Problem Cough R05 Aug, Active 6517869 2 Problem Thoracic or lumbosacral neuritis or radiculitis, unspe cified [id number] Apr, Active 368602977 Problem Nausea with vomiting R11.2 Apr, Active 35237344 Problem Status post hemorrhoidectomy Z98.890 Sep, 6 Active 606422806 Problem Diarrhea R19.7 June, Active 3149648 8 Problem Sciatica M54.30 June, Active 5784081 5 Problem Hypokalemia E87.6 03 Apr, 2011 Active 02653 004 Problem Laryngitis, acute J04.0 Sep, Active 7418101 Problem Anxiety and depression F41.9 Mar, Acti ve 877257231 Problem Vaginal dryness N89.8 Sep, Active 3 4598568 Problem Lumbago M54.5 June, Active 4207389 07 Problem Migraine variant with headache G43.809 Jan, 015 Active 002991131 Problem Dehydration E86.0 Apr, Active 85687 006 Problem Folliculitis and perifolliculitis L73.9 Jan Active 87492382 Problem Abnormal weight loss R63.4 Aug, Active 268547413 Problem Acute bilateral low back pain M54.5 Active 055861664 Problem Tobacco abuse counseling Z71.6 May, Ac tive 964941355 Problem Low serum T4 level R79.89 Mar, Active 158444913 Problem Lumbago with sciatica, left side M54.42 Active 414188093 Problem Other chronic pain G89.29 Active 8 3693471 Problem Chronic fatigue R53.82 Active 5270 2002 Problem Bipolar 1 disorder, depressed, moderate F31.32 Active 33761644 Problem Leukocytosis D72.829 Jul, Active 1115 74937 Problem Spondylosis of lumbar region without myelopathy or radiculopathy M47.816 Nov, Active 83091592 Problem Vaginal bleeding N93.9 Active 289 823952 Problem Neck pain on right side M54.2 Jan, Act marli 55924173 Problem Mid back pain M54.9 Aug, Active 161 373977 Problem Acute hemorrhoid K64.9 Jul, Active 82510188 Problem Bulging lumbar disc M51.26 Apr, Active 54931596 Problem H/O sciatica Z86.69 Sep, Active Problem Chronic pain G89.29 Active 1924814 1 Problem Hypothyroidism (acquired) E03.9 Acti ve 612915473 Problem TSH (thyroid-stimulating hormone deficiency) E0 3.8 Aug, Active 71969293 Problem Mood disorder F39 Active 349674 05 Problem Intractable cyclical vomiting with nausea G43.A1 Active 75505891 ALLERGIES No Information ENCOUNTERS Encounter Location Date Diagnosis [address] [address] Sep, [address] [address] Sep, [address] [address] Aug, Vaginal bleeding N93.9 and Vaginal discharge N89.8 [facility] [address] [place] [address] Aug, [address] [address] Aug, Bipolar 1 disorder, depressed, moderate F31.32 ; Acute bilateral low back pain M54.5 and Hx of migraine headaches Z86.69 [facility] [address] [place] [id number] [place] [address] Aug, [address] [address] Aug, [address] [address] Aug, Other chronic pain G89.29 ; Intractable cyclical vomiting with nausea G43.A1 and alf (current) use of opiate analgesic Z79.[address] [address] Aug, Intractable cyclical vomiting with nausea G43.A1 ; Cachexia R64 and Dehydration E86.[address] [address] Aug, [address] [address] Jul, Chest pain, unspecified type R07.9 ; Other chronic pain G89.29 ; Drug-induced 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 ; Low back pain M54.5 and Weight loss R63.[address] [address] Jul, [address] [address] Jul, [address] [address] Jul, Hordeolum externum left upper eyelid H00.[address] [address] Jul, Acute cystitis N30.00 and Pain passing urine R30.[address] [address] Jul, [address] [address] Jul, Chronic pain G89.[address] [address] Jul, [address] [address] June, [place] [address] [address] June, [address] [address] June, [address] [address] May, TSH (thyroid-stimulating hormone deficiency) E03.8 [place] [address] [place] [id number] [place] [address] May, [address] [address] May, [address] [address] May, [address] [address] May, Well woman exam (no gynecological exam) Z00.00 and Diarrhea, unspecified type R19.[address] [address] May, [place] [address] [place] [id number] [place] [address] May, [address] [address] May, [address] [address] May, Intractable cyclical vomiting with nausea G43.A1 ; Chronic pain G89.29 ; Hypothyroidism (acquired) E03.9 ; Mood disorder F39 and Well woman exam (no gynecological exam) Z00.00 [facility] [address] [place] [address] May, Intractable cyclical vomiting with nausea G43.A1 [facility] [address] [address] Apr, Breast lump in female N63.[address] [address] Apr, Breast lump N63.[address] [address] Apr, Breast lump in female N63.0 [facility] [place] [address] [place] [address] Apr, [facility] [place] [address] [place] [address] Apr, [facility] [place] [address] [place] [address] Apr, Abdominal pain R10.9 [facility] [place] [address] [place] [address] Apr, Generalized abdominal pain R10.84 and Chronic pain G89.29 [facility] [address] [place] [address], [place] [address] Apr, [facility] [place] [address] [place] [address] Apr, Breast lump in female N63.0 [facility] [place] [address] [place] [address] Apr, [facility] [place] [address] [place] [phone] Apr, [facility] [place] [address] [place] [address] Apr, [facility] [place] [address] [place] [address] Apr, [facility] [place] [id number] [place] [address], [place] [address] Apr, Cachexia R64 and Lumbago with sciatica, left side M54.42 [facility] [place] [id number] [place] [address] Mar, [facility] [address] [address] Mar, [address] [address] Mar, Diarrhea, unspecified type R19.[address] [address] Mar, [address] [address] Mar, Vomiting, unspecified R11.10 ; Generalized abdominal pain R10.84 and Viral gastroenteritis A08.[address] [address] Mar, [address] [address] Feb, Lumbago with sciatica, left side M54.42 [place] [address] [place] [id number] [place] [address] Feb, [address] [address] Feb, Urinary pain R30.9 ; Hematuria R31.9 ; Leukocytes in urine R82.998 ; Acute cystitis with hematuria N30.01 ; Lumbago with sciatica, left side M54.42 ; Other chronic pain G89.29 and Well woman exam (no gynecological exam) Z00.[address] [address] Feb, [address] [address] Feb, [facility] [address] [place] [id number] [place] [address] Jan, [facility] [address] [facility] [id number] [address] [place] [address] Jan, [facility] [address] [facility] [id number] [address] [place] [address] Dec, [facility] [address] [facility] [id number] [address] [place] [address] Nov, [facility] [address] [place] [id number] [place] [address] May, [facility] [address] [id number] [address] [place] [address] May, [facility] [address] [id number] [address] [place] [address] Sep, [facility] [address] [id number] [address] [place] [phone] Sep, [facility] [address] [id number] [address] [place] [address] Sep, [facility] [address] [id number] [address] [place] [address] Sep, [facility] [address] [id number] [address] [place] [phone] Aug, [facility] [address] [id number] [address] [place] [phone] Aug, [facility] [address] [id number] [address] [place] [address] Aug, [facility] [address] [id number] [address] [place] [address] Aug, IMMUNIZATIONS No Known Immunizations SOCIAL HISTORY Never Assessed REASON FOR VISIT PLAN OF CARE VITAL SIGNS MEDICATIONS Unknown Medications RESULTS No Results PROCEDURES No Known procedures [...] carpal tunnel release left wrist x 1, ri ght wrist x 2 Surgical History right knee arthroscopy Hospitalization History surgeries
--- OUTSIDE RECORDS SUMMARY | 2019-02-19 10:44 | XMS REPORT ---
Author Author Marly FOWLER Organization [facility] Address [address] [place] [address] Care Team Providers Care Paralegals Name Role Phone MONTY FOWLER Unavailable PROBLEMS Type Condition ICD9-CM Code ODJ32-CR Code Onset Dates Condition S tatus SNOMED Code Problem Acute left-sided back pain with sciatica M54.42 Dec, Active 28329651 Problem Reactive depression (situational) F32.9 Feb Active 47139311 Problem Poor venous access I87.8 June, Active 233348893 Problem Acute gastritis without hemorrhage K29.00 2017 Active 10597152 Problem Acute back pain M54.9 Oct, Active 1 03088796 Problem Blurry vision, bilateral H53.8 Jan, Ac tive 80183906 Problem Drug withdrawal F19.939 Jul, Active 3 77265263 Problem Skin lesion L98.9 June, Active 46468 001 Problem Gastritis and duodenitis K29.90 Feb, Ac tive 370642357 Problem Acute midline thoracic back pain M54.6 Mar, Active 881359922 Problem Spasm of muscle M62.838 Nov, Active 4 8391591 Problem Acute cystitis without hematuria N30.00 Jul, Active 01617361 Problem Other and unspecified closed fractures of proximal end of radius (alone) S52.109A Sep, Active 40125740 Problem Cough R05 Aug, Active 1817288 2 Problem Thoracic or lumbosacral neuritis or radiculitis, unspe cified [id number] Apr, Active 865120699 Problem Nausea with vomiting R11.2 Apr, Active 46851960 Problem Status post hemorrhoidectomy Z98.890 Sep, 201 6 Active 601269331 Problem Diarrhea R19.7 June, Active 8220244 8 Problem Sciatica M54.30 June, Active 7900003 5 Problem Hypokalemia E87.6 Apr, Active 97878 004 Problem Laryngitis, acute J04.0 Sep, Active 7620190 Problem Anxiety and depression F41.9 Mar, Acti ve 507590960 Problem Vaginal dryness N89.8 Sep, Active 3 0389953 Problem Lumbago M54.5 June, Active 6606607 07 Problem Migraine variant with headache G43.809 Jan, 015 Active 420997779 Problem Dehydration E86.0 Apr, Active 02652 006 Problem Folliculitis and perifolliculitis L73.9 Jan Active 59089677 Problem Abnormal weight loss R63.4 Aug, Active 198806369 Problem Acute bilateral low back pain M54.5 Active 011654317 Problem Tobacco abuse counseling Z71.6 May, Ac tive 126561831 Problem Low serum T4 level R79.89 Mar, Active 991814267 Problem Lumbago with sciatica, left side M54.42 Active 969226288 Problem Other chronic pain G89.29 Active 8 9379150 Problem Chronic fatigue R53.82 Active 5270 2002 Problem Bipolar 1 disorder, depressed, moderate F31.32 Active 83653087 Problem Leukocytosis D72.829 Jul, Active 1115 46360 Problem Spondylosis of lumbar region without myelopathy or radiculopathy M47.816 Nov, Active 81459506 Problem Vaginal bleeding N93.9 Active 289 372735 Problem Neck pain on right side M54.2 Jan, Act marli 61542952 Problem Mid back pain M54.9 Aug, Active 161 837503 Problem Acute hemorrhoid K64.9 Jul, Active 31612355 Problem Bulging lumbar disc M51.26 Apr, Active 59312156 Problem H/O sciatica Z86.69 Sep, Active Problem Chronic pain G89.29 Active 2750784 1 Problem Hypothyroidism (acquired) E03.9 Acti ve 976622768 Problem TSH (thyroid-stimulating hormone deficiency) E0 3.8 Aug, Active 01645993 Problem Mood disorder F39 Active 913035 05 Problem Intractable cyclical vomiting with nausea G43.A1 Active 30476440 ALLERGIES No Information ENCOUNTERS Encounter Location Date Diagnosis [address] [address] Sep, [address] [address] Sep, [address] [address] Aug, Vaginal bleeding N93.9 and Vaginal discharge N89.8 [facility] [address] [place] [address] Aug, [address] [address] Aug, Bipolar 1 disorder, depressed, moderate F31.32 ; Acute bilateral low back pain M54.5 and Hx of migraine headaches Z86.69 [facility] [address] [place] [id number] [place] [address] Aug, [address] [address] Aug, [address] [address] Aug, Other chronic pain G89.29 ; Intractable cyclical vomiting with nausea G43.A1 and 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.[address] [address] Aug, Intractable cyclical vomiting with nausea G43.A1 ; Cachexia R64 and Dehydration E86.[address] [address] Aug, [address] [address] Jul, Chest pain, unspecified type R07.9 ; Other chronic pain G89.29 ; Drug-induced 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 ; Low back pain M54.5 and Weight loss R63.[address] [address] Jul, [address] [address] Jul, [address] [address] Jul, Hordeolum externum left upper eyelid H00.014 [facility] [address] [address] Jul, Acute cystitis N30.00 and Pain passing urine R30.[address] [address] Jul, [address] [address] Jul, Chronic pain G89.[address] [address] Jul, [address] [address] June, [place] [address] [place] [id number] [place] [address] June, [address] [address] June, [address] [address] May, TSH (thyroid-stimulating hormone deficiency) E03.8 [place] [address] [place] [id number] [place] [address] May, [address] [address] May, [address] [address] May, [address] [address] May, Well woman exam (no gynecological exam) Z00.00 and Diarrhea, unspecified type R19.[address] [address] May, [place] [address] [facility] [id number] [address] [place] [address] May, [address] [address] May, [address] [address] May, Intractable cyclical vomiting with nausea G43.A1 ; Chronic pain G89.29 ; Hypothyroidism (acquired) E03.9 ; Mood disorder F39 and Well woman exam (no gynecological exam) Z00.00 [facility] [place] [address] [place] [address] May, Intractable cyclical vomiting with nausea G43.A1 [facility] [address] [address] Apr, Breast lump in female N63.[address] [address] Apr, Breast lump N63.0 [facility] [address] [address] Apr, Breast lump in female N63.0 [facility] [place] [id number] [place] [address], [place] [address] Apr, [facility] [place] [address] [place] [address] Apr, [facility] [place] [address] [place] [address], [place] [address] Apr, Abdominal pain R10.9 [facility] [place] [id number] [place] [address], [place] [address] Apr, Generalized abdominal pain R10.84 and Chronic pain G89.29 [facility] [place] [id number] [place] [address], [place] [address] Apr, [facility] [place] [id number] [place] [address], [place] [address] Apr, Breast lump in female N63.0 [facility] [place] [id number] [place] [address], [place] [address] Apr, [facility] [place] [id number] [place] [address], [place] [address] Apr, [facility] [place] [id number] [place] [address], [place] [address] Apr, [facility] [place] [id number] [place] [address], [place] [address] Apr, [facility] [place] [id number] [place] [address], [place] [address] Apr, Cachexia R64 and Lumbago with sciatica, left side M54.42 [facility] [place] [id number] [place] [address], [place] [address] Mar, [facility] [place] [id number] [place] [address] Mar, [address] [address] Mar, Diarrhea, unspecified type R19.[address] [address] Mar, [address] [address] Mar, Vomiting, unspecified R11.10 ; Generalized abdominal pain R10.84 and Viral gastroenteritis A08.[address] [address] Mar, [address] [address] Feb, Lumbago with sciatica, left side M54.42 [facility] [address] [place] [id number] [place] [address] Feb, [address] [address] Feb, Urinary pain R30.9 ; Hematuria R31.9 ; Leukocytes in urine R82.998 ; Acute cystitis with hematuria N30.01 ; Lumbago with sciatica, left side M54.42 ; Other chronic pain G89.29 and Well woman exam (no gynecological exam) Z00.00 [facility] [address] [address] Feb, [address] [address] Feb, [facility] [address] [place] [id number] [place] [address] Jan, [facility] [address] [facility] [id number] [address] [place] [address] Jan, [facility] [address] [place] [id number] [place] [address] Dec, [facility] [address] [facility] [id number] [address] [place] [address] Nov, [facility] [address] [place] [id number] [place] [address] May, [facility] [address] [id number] [address] [place] [address] May, [facility] [address] [id number] [address] [place] [address] Sep, [facility] [address] [id number] [address] [place] [address] Sep, [facility] [address] [id number] [address] [place] [address] Sep, [facility] [address] [id number] [address] [place] [address] Sep, [facility] [address] [id number] [address] [place] [address] Aug, [facility] [address] [id number] [address] [place] [address] Aug, [facility] [address] [id number] [address] [place] [address] Aug, [facility] [address] [id number] [address] [place] [address] Aug, IMMUNIZATIONS No Known Immunizations SOCIAL HISTORY Never Assessed REASON FOR VISIT KUB AND Upright Abdomen for Dr Fowler. Nathalia Brice RT(R) PLAN OF CARE VITAL SIGNS MEDICATIONS Unknown Medications RESULTS No Results PROCEDURES Procedure Date Ordered Result Body Site X-RAY EXAM ABDOMEN 2 VIEWS May 13, 2018 INSTRUCTIONS MEDICATIONS ADMINISTERED No Known Medications [...]
--- OUTSIDE RECORDS SUMMARY | 2019-02-19 10:44 | XMS REPORT | Continuity of Care Document ---
Author Organization Unknown Address Unknown Phone Unavailable Allergies Active Description Code Type Severity Reaction Onset Reported/Identified Relationship to Patient Clinical Status Yes hydrocodone [id number] Drug Aller gy Unknown N/A 04/15/2018 Yes butorphanol [id number] Drug Aller gy Unknown N/A 08/14/2018 Yes codeine [id number] Drug Allergy Unknown N/A 08/14/2018 Yes Sulfa (Sulfonamide Antibiotics) [id number] Drug Allergy Unknown N/A 019 Medications There is no data. Problems Date Dx Coded Attending Type Code Diagnosis Diagnosed By 04/15/2018 SUNIL ROBLES MD, Ot F17.210 NICOTINE DEPENDENCE, CIGARETTES, UNCOMPL 04/15/2018 SUNIL ROBLES MD Ot F31.9 BIPOLAR DISORDER, UNSPECIFIED 04/15/2018 SUNIL ROBLES MD, Ot G43.909 MIGRAINE, UNSP, NOT INTRACTABLE, WITHOUT 04/15/2018 SUNIL ROBLES MD Ot G89.29 OTHER CHRONIC PAIN 04/15/2018 SUNIL ROBLES MD Ot M54.41 LUMBAGO WITH SCIATICA, RIGHT SIDE 04/15/2018 SUNIL ROBLES MD, Ot M54.5 LOW BACK PAIN 04/15/2018 SUNIL ROBLES MD Ot Z85.850 PERSONAL HISTORY OF MALIGNANT NEOPLASM O 04/15/2018 SUNIL ROBLES MD Ot Z87.440 PERSONAL HISTORY OF URINARY (TRACT) INFE 04/15/2018 SUNIL ROBLES MD Ot Z87.448 PERSONAL HISTORY OF OTHER DISEASES OF UR 04/15/2018 SUNIL ROBLES MD Ot Z88.2 ALLERGY STATUS TO SULFONAMIDES STATUS 04/15/2018 SUNIL ROBLES MD Ot Z88.5 ALLERGY STATUS TO NARCOTIC AGENT STATUS 04/15/2018 SUNIL ROBLES MD Ot Z88.8 ALLERGY STATUS TO OTH DRUG/MEDS/BIOL SUB 04/15/2018 SUNIL ROBLES MD Ot Z90.710 ACQUIRED ABSENCE OF BOTH CERVIX AND UTER 04/15/2018 SUNIL ROBLES MD Ot Z90.89 ACQUIRED ABSENCE OF OTHER ORGANS 04/15/2018 SUNIL ROBLES MD Ot Z92.21 PERSONAL HISTORY OF ANTINEOPLASTIC CHEMO 04/23/2018 SUNIL ROBLES MD Ot F17.210 NICOTINE DEPENDENCE, CIGARETTES, UNCOMPL 04/23/2018 SUNIL ROBLES MD Ot F31.9 BIPOLAR DISORDER, UNSPECIFIED 04/23/2018 SUNIL ROBLES MD Ot G43.909 MIGRAINE, UNSP, NOT INTRACTABLE, WITHOUT 04/23/2018 SUNIL ROBLES MD Ot G89.29 OTHER CHRONIC PAIN 04/23/2018 SUNIL ROBLES MD Ot M54.41 LUMBAGO WITH SCIATICA, RIGHT SIDE 04/23/2018 SUNIL ROBLES MD, Ot M54.5 LOW BACK PAIN 04/23/2018 SUNIL ROBLES MD Ot Z85.850 PERSONAL HISTORY OF MALIGNANT NEOPLASM O 04/23/2018 SUNIL ROBLES MD Ot Z87.440 PERSONAL HISTORY OF URINARY (TRACT) INFE 04/23/2018 SUNIL ROBLES MD Ot Z87.448 PERSONAL HISTORY OF OTHER DISEASES OF UR 04/23/2018 SUNIL ROBLES MD Ot Z88.2 ALLERGY STATUS TO SULFONAMIDES STATUS 04/23/2018 SUNIL ROBLES MD Ot Z88.5 ALLERGY STATUS TO NARCOTIC AGENT STATUS 04/23/2018 SUNIL ROBLES MD Ot Z88.8 ALLERGY STATUS TO OTH DRUG/MEDS/BIOL SUB 04/23/2018 SUNIL ROBLES MD Ot Z90.710 ACQUIRED ABSENCE OF BOTH CERVIX AND UTER 04/23/2018 SUNIL ROBLES MD Ot Z90.89 ACQUIRED ABSENCE OF OTHER ORGANS 04/23/2018 SUNIL ROBLES MD Ot Z92.21 PERSONAL HISTORY OF ANTINEOPLASTIC CHEMO 08/14/2018 HOLLY CONTE DOI Ot E87.8 OTH DISORDERS OF ELECTROLYTE AND FLUID B 08/14/2018 HOLLY CONTE DOI Ot E89.0 POSTPROCEDURAL HYPOTHYROIDISM 08/14/2018 SHREYA CONTE DO Ot F17.21 0 NICOTINE DEPENDENCE, CIGARETTES, UNCOMPL 08/14/2018 SHREYA CONTE DO Ot F31.9 BIPOLAR DISORDER, UNSPECIFIED 08/14/2018 HOLLY CONTE DOI Ot F41.9 ANXIETY DISORDER, UNSPECIFIED 08/14/2018 HOLLY CONTE DOI Ot G43.90 9 MIGRAINE, UNSP, NOT INTRACTABLE, WITHOUT 08/14/2018 DG ABRAHAM SHREYA Ot G43.A0 CYCLICAL VOMITING, NOT INTRACTABLE 08/14/2018 SHREYA CONTE DO Ot J44.9 CHRONIC OBSTRUCTIVE PULMONARY DISEASE, U 08/14/2018 DG ABRAHAM SHREYA Ot K58.9 IRRITABLE BOWEL SYNDROME WITHOUT DIARRHE 08/14/2018 SHREYA CONTE DO Ot M54.9 DORSALGIA, UNSPECIFIED 08/14/2018 DG ABRAHAM SHREYA Ot N39.0 URINARY TRACT INFECTION, SITE NOT SPECIF 08/14/2018 DG ABRAHAM SHREYA Ot R07.89 OTHER CHEST PAIN 08/14/2018 SHREYA CONTE DO Ot R10.10 UPPER ABDOMINAL PAIN, UNSPECIFIED 08/14/2018 SHREYA CONTE DO Ot R20.0 ANESTHESIA OF SKIN 08/14/2018 HOLLY CONTE DOI Ot R63.4 ABNORMAL WEIGHT LOSS 08/14/2018 SHREYA CONTE DO Ot R64 CACHEXIA 08/14/2018 SHREYA CONTE DO Ot Z82.49 FAMILY HX OF ISCHEM HEART DIS AND OTH DI 08/14/2018 SHREYA CONTE DO Ot Z86.73 PRSNL HX OF TIA (TIA), AND CEREB INFRC W 08/14/2018 SHREYA CONTE DO Ot Z90.49 ACQUIRED ABSENCE OF OTHER SPECIFIED PART 08/14/2018 DG ABRAHAM SHREYA Ot Z90.71 0 ACQUIRED ABSENCE OF BOTH CERVIX AND UTER 08/14/2018 DG ABRAHAM SHREYA Ot Z96.89 PRESENCE OF OTHER SPECIFIED FUNCTIONAL I 08/18/2018 JATIN MAGAÑA DO Ot F31 .9 BIPOLAR DISORDER, UNSPECIFIED 08/18/2018 JATIN MAGAÑA DO Ot G43.909 MIGRAINE, UNSP, NOT INTRACTABLE, WITHOUT 08/18/2018 JATIN MAGAÑA DO Ot R07.89 OTHER CHEST PAIN 08/18/2018 JATIN MAGAÑA DO Ot R10.12 LEFT UPPER QUADRANT PAIN 08/18/2018 JATIN MAGAÑA DO Ot Z77.22 CNTCT W AND EXPSR TO ENVIRON TOBACCO SMO 08/18/2018 JATIN MAGAÑA DO Ot 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 08/18/2018 JATIN MAGAÑA DO Ot Z82.49 FAMILY HX OF ISCHEM HEART DIS AND OTH DI 08/18/2018 JATIN MAGAÑA DO Ot Z85.850 PERSONAL HISTORY OF MALIGNANT NEOPLASM O 08/18/2018 JATIN MAGAÑA DO, Ot Z88 .2 ALLERGY STATUS TO SULFONAMIDES STATUS 08/18/2018 JATIN MAGAÑA DO, Ot Z88 .5 ALLERGY STATUS TO NARCOTIC AGENT STATUS 08/18/2018 JATIN MAGAÑA DO, Ot Z90.710 ACQUIRED ABSENCE OF BOTH CERVIX AND UTER 08/18/2018 JATIN MAGAÑA DO, Ot Z90.89 ACQUIRED ABSENCE OF OTHER ORGANS 08/20/2018 JATIN MAGAÑA DO Ot F31 .9 BIPOLAR DISORDER, UNSPECIFIED 08/20/2018 JATIN MAGAÑA DO, Ot G43.909 MIGRAINE, UNSP, NOT INTRACTABLE, WITHOUT 08/20/2018 JATIN MAGAÑA DO Ot R07.89 OTHER CHEST PAIN 08/20/2018 JATIN MAGAÑA DO, Ot R10.12 LEFT UPPER QUADRANT PAIN 08/20/2018 JATIN MAGAÑA DO Ot Z77.22 CNTCT W AND EXPSR TO ENVIRON TOBACCO SMO 08/20/2018 JATIN MAGAÑA DO Ot 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 Results Test Result Range AMYLASE - 06/09/18 10:30 AMYLASE 25 U/L 21-101 CULTURE, STOOL - 06/11/18 12:00 SALMONELLA AND SHIGELLA, CULTURE NRG CULTURE, URINE - 08/06/18 18:00 CULTURE, URINE, ROUTINE NRG Automated dipstick urinalysis - 08/13/18 22:20 Urine color determination YELLOW NRG Urine clarity determination CLEAR NR G Urine pH measurement by test strip 6.5 5-9 Specific gravity of urine by test strip <= 1.016-1.022 Urine protein assay by test strip, semi-quantitative NEGATIVE NEGATIVE Urine glucose detection by automated test strip NE GATIVE NEGATIVE Erythrocytes detection in urine sediment by light micr oscopy NEGATIVE NEGATIVE Urine ketones detection by automated test strip NE GATIVE NEGATIVE Urine nitrite detection by test strip NEGATIVE NEGATIVE Urine total bilirubin detection by test strip NEGA TIVE NEGATIVE Urine urobilinogen measurement by automated test strip (mass/volume) NORMAL NORMAL Urine leukocyte esterase detection by dipstick TRA CE NEGATIVE Complete blood count (CBC) with automate d white blood cell (WBC) differential - 08/13/18 22:53 Blood leukocytes automated count (number/volume) 15.0 10*3/uL 4.3-11.0 Blood erythrocytes automated count (number/volume) 4.58 10*6/uL 4.35-5.85 Venous blood hemoglobin measurement (mass/volume) 15.1 g/dL 11.5-16.0 Blood hematocrit (volume fraction) 46 % 35-52 Automated erythrocyte mean corpuscular volume 99 [ foz_us] 80-99 Automated erythrocyte mean corpuscular h emoglobin (mass per erythrocyte) 33 pg 25-34 Automated erythrocyte mean corpuscular h emoglobin concentration measurement (mass/volume) 33 g/dL 32-36 Automated erythrocyte distribution width ratio 13. 9 % 10.0- 14.5 Automated blood platelet count (count/volume) 184 10*3/uL 130-400 Automated blood platelet mean volume measurement 12.6 [foz_us] 7.4-10.4 Automated blood neutrophils/100 leukocytes 79 % 42-75 Automated blood lymphocytes/100 leukocytes 16 % 12-44 Blood monocytes/100 leukocytes 4 % 0-12 Automated blood eosinophils/100 leukocytes 1 % 0-10 Automated blood basophils/100 leukocytes 0 % 0-10 Blood neutrophils automated count (number/volume) 11.9 10*3 1.8-7.8 Blood lymphocytes automated count (number/volume) 2.3 10*3 1.0-4.0 Blood monocytes automated count (number/volume) 0. 5 10*3 0.0-1.0 Automated eosinophil count 0.1 10*3/uL 0 .0-0.3 Automated blood basophil count (count/volume) 0.0 10*3/uL 0.0-0.1 Serum or plasma choriogonadotropin (preg poppy test) detection - 08/13/18 22:53 Serum or plasma choriogonadotropin ( test) de tection NEGATIVE NEGATIVE Comprehensive metabolic panel - 08/13/18 22:53 Serum or plasma sodium measurement (moles/volume) 143 mmol/L 135-145 Serum or plasma potassium measurement (moles/volume) 3.4 mmol/L 3.6-5.0 Serum or plasma chloride measurement (moles/volume) 102 mmol/L 98-107 Carbon dioxide 23 mmol/L 21-32 Serum or plasma anion gap determination (moles/volume) 18 mmol/L 5-14 Serum or plasma urea nitrogen measurement (mass/volume ) 5 mg/dL 7-18 Serum or plasma creatinine measurement (mass/volume) 0.61 mg/dL 0.60-1.30 Serum or plasma urea nitrogen/creatinine mass ratio 8 NRG Serum or plasma creatinine measurement w ith calculation of estimated glomerular filtration rate > NRG Serum or plasma glucose measurement (mass/volume) 81 mg/dL 70-105 Serum or plasma calcium measurement (mass/volume) 9.8 mg/dL 8.5-10.1 Serum or plasma total bilirubin measurement (mass/volu me) 0.4 mg/dL 0.1-1.0 Serum or plasma alkaline phosphatase lazaro surement (enzymatic activity/volume) 77 U/L 40-136 Serum or plasma aspartate aminotransfera se measurement (enzymatic activity/volume) 18 U/L 5-34 Serum or plasma alanine aminotransferase measurement (enzymatic activity/volume) 11 U/L 0-55 Serum or plasma protein measurement (mass/volume) 7.6 g/dL 6.4-8.2 Serum or plasma albumin measurement (mass/volume) 4.4 g/dL 3.2-4.5 CALCIUM CORRECTED 9.5 mg/dL 8.5-10.1 Magnesium - 08/13/18 22:53 Magnesium 1.7 mg/dL 1.8-2.4 TROPONIN T - 08/13/18 22:53 TROPONIN T 15 % <=10 Lipase - 08/13/18 22:53 Lipase 14 U/L 8-78 Manual absolute plasma cell count - 07/26 11/13 22:53 Blood monocytes/100 leukocytes 5 % NRG Manual blood segmented neutrophils/100 leukocytes 81 % NRG Manual blood lymphocytes/100 leukocytes 14 % NRG Blood erythrocyte morphology finding identification NORMAL NR Serum or plasma troponin i.cardiac measu rement (mass/volume) - 08/14/18 02:15 Serum or plasma troponin i.cardiac measurement (mass/v olume) < ng/mL <0.028 Complete blood count (CBC) with automate d white blood cell (WBC) differential - 08/14/18 03:45 Blood leukocytes automated count (number/volume) 10.1 10*3/uL 4.3-11.0 Blood erythrocytes automated count (number/volume) 3.63 10*6/uL 4.35-5.85 Venous blood hemoglobin measurement (mass/volume) 11.8 g/dL 11.5-16.0 Blood hematocrit (volume fraction) 35 % 35-52 Automated erythrocyte mean corpuscular volume 96 [ foz_us] 80-99 Automated erythrocyte mean corpuscular h emoglobin (mass per erythrocyte) 33 pg 25-34 Automated erythrocyte mean corpuscular h emoglobin concentration measurement (mass/volume) 34 g/dL 32-36 Automated erythrocyte distribution width ratio 14. 0 % 10.0- 14.5 Automated blood platelet count (count/volume) 141 10*3/uL 130-400 Automated blood platelet mean volume measurement 12.5 [foz_us] 7.4-10.4 Automated blood neutrophils/100 leukocytes 74 % 42-75 Automated blood lymphocytes/100 leukocytes 19 % 12-44 Blood monocytes/100 leukocytes 5 % 0-12 Automated blood eosinophils/100 leukocytes 2 % 0-10 Automated blood basophils/100 leukocytes 0 % 0-10 Blood neutrophils automated count (number/volume) 7.5 10*3 1.8-7.8 Blood lymphocytes automated count (number/volume) 1.9 10*3 1.0-4.0 Blood monocytes automated count (number/volume) 0. 5 10*3 0.0-1.0 Automated eosinophil count 0.2 10*3/uL 0 .0-0.3 Automated blood basophil count (count/volume) 0.0 10*3/uL 0.0-0.1 Whole blood basic metabolic panel - 07/27 03:45 Serum or plasma sodium measurement (moles/volume) 139 mmol/L 135-145 Serum or plasma potassium measurement (moles/volume) 3.4 mmol/L 3.6-5.0 Serum or plasma chloride measurement (moles/volume) 109 mmol/L 98-107 Carbon dioxide 20 mmol/L 21-32 Serum or plasma anion gap determination (moles/volume) 10 mmol/L 5-14 Serum or plasma urea nitrogen measurement (mass/volume ) 3 mg/dL 7-18 Serum or plasma creatinine measurement (mass/volume) 0.60 mg/dL 0.60-1.30 Serum or plasma urea nitrogen/creatinine mass ratio 5 NRG Serum or plasma creatinine measurement w ith calculation of estimated glomerular filtration rate > NRG Serum or plasma glucose measurement (mass/volume) 100 mg/dL 70-105 Serum or plasma calcium measurement (mass/volume) 8.4 mg/dL 8.5-10.1 Serum or plasma troponin i.cardiac measu rement (mass/volume) - 08/14/18 08:34 Serum or plasma troponin i.cardiac measurement (mass/v olume) < ng/mL <0.028 Complete blood count (CBC) with automate d white blood cell (WBC) differential - 08/18/18 21:20 Blood leukocytes automated count (number/volume) 9.2 10*3/uL 4.3-11.0 Blood erythrocytes automated count (number/volume) 4.22 10*6/uL 4.35-5.85 Venous blood hemoglobin measurement (mass/volume) 13.8 g/dL 11.5-16.0 Blood hematocrit (volume fraction) 41 % 35-52 Automated erythrocyte mean corpuscular volume 97 [ foz_us] 80-99 Automated erythrocyte mean corpuscular h emoglobin (mass per erythrocyte) 33 pg 25-34 Automated erythrocyte mean corpuscular h emoglobin concentration measurement (mass/volume) 34 g/dL 32-36 Automated erythrocyte distribution width ratio 14. 0 % 10.0- 14.5 Automated blood platelet count (count/volume) 213 10*3/uL 130-400 Automated blood platelet mean volume measurement 12.5 [foz_us] 7.4-10.4 Automated blood neutrophils/100 leukocytes 47 % 42-75 Automated blood lymphocytes/100 leukocytes 41 % 12-44 Blood monocytes/100 leukocytes 5 % 0-12 Automated blood eosinophils/100 leukocytes 6 % 0-10 Automated blood basophils/100 leukocytes 1 % 0-10 Blood neutrophils automated count (number/volume) 4.3 10*3 1.8-7.8 Blood lymphocytes automated count (number/volume) 3.8 10*3 1.0-4.0 Blood monocytes automated count (number/volume) 0. 5 10*3 0.0-1.0 Automated eosinophil count 0.5 10*3/uL 0 .0-0.3 Automated blood basophil count (count/volume) 0.1 10*3/uL 0.0-0.1 Fibrin D-dimer FEU measurement in platel et poor plasma (mass/volume) - 08/18/18 21:20 Fibrin D-dimer FEU measurement in platelet poor plasma (mass/volume) 0.30 ug/mL 0.00-0.49 Comprehensive metabolic panel - 08/18/18 21:20 Serum or plasma sodium measurement (moles/volume) 139 mmol/L 135-145 Serum or plasma potassium measurement (moles/volume) 3.7 mmol/L 3.6-5.0 Serum or plasma chloride measurement (moles/volume) 99 mmol/L 98-107 Carbon dioxide 25 mmol/L 21-32 Serum or plasma anion gap determination (moles/volume) 15 mmol/L 5-14 Serum or plasma urea nitrogen measurement (mass/volume ) 4 mg/dL 7-18 Serum or plasma creatinine measurement (mass/volume) 0.60 mg/dL 0.60-1.30 Serum or plasma urea nitrogen/creatinine mass ratio 7 NRG Serum or plasma creatinine measurement w ith calculation of estimated glomerular filtration rate > NRG Serum or plasma glucose measurement (mass/volume) 87 mg/dL 70-105 Serum or plasma calcium measurement (mass/volume) 9.2 mg/dL 8.5-10.1 Serum or plasma total bilirubin measurement (mass/volu me) 0.4 mg/dL 0.1-1.0 Serum or plasma alkaline phosphatase lazaro surement (enzymatic activity/volume) 66 U/L 40-136 Serum or plasma aspartate aminotransfera se measurement (enzymatic activity/volume) 19 U/L 5-34 Serum or plasma alanine aminotransferase measurement (enzymatic activity/volume) 11 U/L 0-55 Serum or plasma protein measurement (mass/volume) 6.7 g/dL 6.4-8.2 Serum or plasma albumin measurement (mass/volume) 4.1 g/dL 3.2-4.5 CALCIUM CORRECTED 9.1 mg/dL 8.5-10.1 Magnesium - 08/18/18 21:20 Magnesium 1.9 mg/dL 1.8-2.4 TROPONIN T - 08/18/18 21:20 TROPONIN T 10 % <=10 Lipase - 08/18/18 21:20 Lipase 11 U/L 8-78 Complete urinalysis with reflex to cultu re - 08/18/18 21:57 Urine color determination YELLOW NRG Urine clarity determination SL CLOUDY N RG Urine pH measurement by test strip 7.5 5-9 Specific gravity of urine by test strip 1.010 1.016-1.022 Urine protein assay by test strip, semi-quantitative NEGATIVE NEGATIVE Urine glucose detection by automated test strip NE GATIVE NEGATIVE Erythrocytes detection in urine sediment by light micr oscopy 1+ NEGATIVE Urine ketones detection by automated test strip NE GATIVE NEGATIVE Urine nitrite detection by test strip NEGATIVE NEGATIVE Urine total bilirubin detection by test strip NEGA TIVE NEGATIVE Urine urobilinogen measurement by automated test strip (mass/volume) 0.2 mg/dL NORMAL Urine leukocyte esterase detection by dipstick 3+ NEGATIVE Automated urine sediment erythrocyte cou nt by microscopy (number/high power field) RARE NRG Automated urine sediment leukocyte count by microscopy (number/high power field) > [HPF] NRG Bacteria detection in urine sediment by light microsco py FEW NRG Squamous epithelial cells detection in u rine sediment by light microscopy 10-25 NRG Crystals detection in urine sediment by light microsco py NONE NRG Casts detection in urine sediment by light microscopy NONE NRG Mucus detection in urine sediment by light microscopy NEGATIVE NRG Complete urinalysis with reflex to culture YES NRG Urine drug screening test - 08/18/18 21: 57 Urine phencyclidine detection by screening method NEGATIVE NEGATIVE Urine benzodiazepines detection by screening method NEGATIVE NEGATIVE Urine cocaine detection NEGATIVE NEGATI VE Urine amphetamines detection by screening method N EGATIVE NEGATIVE Urine methamphetamine detection by screening method NEGATIVE NEGATIVE Urine cannabinoids detection by screening method P OSITIVE NEGATIVE Urine opiates detection by screening method NEGATI VE NEGATIVE Urine barbiturates detection NEGATIVE N EGATIVE Screening urine tricyclic antidepressants detection NEGATIVE NEGATIVE Urine methadone detection by screening method NEGA TIVE NEGATIVE Urine oxycodone detection NEGATIVE NEGA TIVE Urine propoxyphene detection NEGATIVE N EGATIVE Bacterial urine culture - 08/18/18 21:57 Bacterial urine culture 3 OR MORE NRG COLONY COUNT >100,000/ML NRG FTX;REPORTABLE GRAM POSITIVES, SUGGESTING PROBABLE NRG FREE TEXT ENTRY 2 COLLECTION CONTAMINATION WITH SK IN DONNELL NRG FREE TEXT ENTRY 3 NO SUSCEPTIBILITY PERFORMED NRG TSH w/ FREE T4 - 08/21/18 11:30 TSH 0.70 mIU/L NRG T4, FREE 1.2 ng/dL 0.8-1.8 PDM - 09 PANEL (PROFILE 1) - 09/03/18 13 :45 Prescribed Drug 1 Marinol(TM) NRG Creatinine 104.7 mg/dL > or = 20.0 pH 7.07 4.5 - 9.0 Oxidant NEGATIVE [...] aOH alprazolam CONSISTENT NRG Alphahydroxymidazolam NEGATIVE ng/mL < 50 medMATCH aOH midazolam CONSISTENT NRG Alphahydroxytriazolam NEGATIVE ng/mL < 50 medMATCH aOH triazolam CONSISTENT NRG Aminoclonazepam NEGATIVE ng/mL <25 medMATCH Aminoclonazepam CONSISTENT NRG Hydroxyethylflurazepam NEGATIVE ng/mL <50 medMATCH OH,Et flurazepam CONSISTENT NR G Lorazepam NEGATIVE ng/mL <50 medMATCH Lorazepam CONSISTENT [...] GENITAL - 09/20/18 16:37 CULTURE, GENITAL NRG CULTURE, URINE - 10/23/18 13:00 CULTURE, URINE, ROUTINE NRG Encounters ACCT No. Visit Date/Time Discharge Status Pt. Type Provider Facility Loc./Unit Complaint [id number] 01/19/2019 10:20:00 01/19/2019 23:59: 59 CLS Outpatient KATHY DUMONT [facility] [id number] 10/23/2018 14:00:00 Document Registration [id number] 09/20/2018 16:00:00 Document Registration [id number] 09/03/2018 13:20:00 Document Registration [id number] 08/21/2018 09:20:00 Document Registration [id number] 08/06/2018 16:00:00 Document Registration [id number] 06/09/2018 10:00:00 Document Registration [id number] 06/03/2018 11:30:00 Document Registration [id number] 08/18/2018 20:48:00 019 22:30:00 DIS Emergency JATIN MAGAÑA DO [facility] ER FS CHEST PAIN; SOB [id number] 08/14/2018 00:10:00 019 19:30:00 DIS Inpatient SHREYA CONTE DO [facility] 4TH ACUTE CORONARY SYNDROME [id number] 04/15/2018 01:54:00 03:10:00 DIS Emergency TRAVIS COYLE, SUNIL corado [facility] ER FS BACK PAIN
== END 2019-01-25 19:49 | disposition home or self-care (01) ==
LOC: EDUNIT# 17:42 → ER FS 17:43
DX: N39.0 Urinary tract infection, site not specified (principal); G43.909 Migraine, unspecified, not intractable, without status migrainosus; M79.7 Fibromyalgia; F31.9 Bipolar disorder, unspecified; F17.210 Nicotine dependence, cigarettes, uncomplicated; Z80.8 Family history of malignant neoplasm of other organs or systems; Z88.2 Allergy status to sulfonamides; Z88.5 Allergy status to narcotic agent; Z88.8 Allergy status to other drugs, medicaments and biological substances; Z90.710 Acquired absence of both cervix and uterus; Z90.89 Acquired absence of other organs; Z79.82 Long term (current) use of aspirin; Z79.52 Long term (current) use of systemic steroids; Z82.49 Family history of ischemic heart disease and other diseases of the circulatory system
CPT/HCPCS: 74176; 81000; 84703; 87077; 87088; 87184; 96372

== ENCOUNTER 2019-05-28 12:20 | Emergency (ER) | payer MEDICARE, MEDICAID ==
[~2019-05-28 12:20] MED LIST changes: +CEPH500T PO; -LAMO150T2; +LAMO150T4
--- OUTSIDE RECORDS SUMMARY | 2019-05-28 12:25 | XMS REPORT | Continuity of Care Document ---
Author Organization Unknown Address Unknown Phone Unavailable Allergies Active Description Code Type Severity Reaction Onset Reported/Identified Relationship to Patient Clinical Status Yes hydrocodone [id number] Drug Aller gy Unknown N/A 04/15/2018 Yes butorphanol [id number] Drug Aller gy Unknown N/A 08/14/2018 Yes codeine [id number] Drug Allergy Unknown N/A 08/14/2018 Yes Sulfa (Sulfonamide Antibiotics) [id number] Drug Allergy Unknown N/A 019 Medications [...] CONTE DO Ot M54.9 DORSALGIA, UNSPECIFIED 08/14/2018 GD ABRAHAM SHREYA Ot N39.0 URINARY TRACT INFECTION, [...] SMO 08/18/2018 JATIN MAGAÑA DO Ot 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 08/18/2018 JATIN MAGAÑA [...] SMO 08/20/2018 JATIN MAGAÑA DO Ot 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 08/20/2018 JATIN MAGAÑA [...] - 10/23/18 13:00 CULTURE, URINE, ROUTINE NRG CBC - 03/10/19 10:37 WHITE BLOOD CELL COUNT 9.7 Thousand/uL 3 .8-10.8 RED BLOOD CELL COUNT 4.23 Million/uL 3.8 0-5.10 HEMOGLOBIN 13.8 g/dL 11.7-15.5 HEMATOCRIT 41.5 % 35.0-45.0 MCV 98.1 fL 80.0-100.0 MCH 32.6 pg 27.0-33.0 MCHC 33.3 g/dL 32.0-36.0 RDW 13.4 % 11.0-15.0 PLATELET COUNT 199 Thousand/uL 140-400 MPV 12.5 fL 7.5-12.5 ABSOLUTE NEUTROPHILS 4734 cells/uL 1500- 7800 ABSOLUTE LYMPHOCYTES 3696 cells/uL 850-3 900 ABSOLUTE MONOCYTES 660 cells/uL 200-950 ABSOLUTE EOSINOPHILS 553 cells/uL 15-500 ABSOLUTE BASOPHILS 58 cells/uL 0-200 NEUTROPHILS 48.8 % NRG LYMPHOCYTES 38.1 % NRG MONOCYTES 6.8 % NRG EOSINOPHILS 5.7 % NRG BASOPHILS 0.6 % NRG ESTRADIOL - 03/16/19 12:21 ESTRADIOL 18 pg/mL NRG VITAMIN D, 25-H - 03/16/19 12:21 VITAMIN D,25-OH,TOTAL,IA 29 ng/mL 30-10 0 VITAMIN B12/FOLATE, SERUM PANEL - 12:21 VITAMIN B12 633 pg/mL 200-1100 FOLATE, SERUM >24.0 ng/mL NRG CULTURE, URINE - 03/31/19 12:55 CULTURE, URINE, ROUTINE NRG Encounters ACCT No. Visit Date/Time Discharge Status Pt. Type Provider Facility Loc./Unit Complaint [id number] 03/31/2019 13:00:00 03/31/2019 23:59: 59 CLS Outpatient KATHY DUMONT [facility] [place] [id number] 03/31/2019 13:00:00 Document Registration [id number] 03/16/2019 11:20:00 Document Registration [id number] 03/10/2019 10:00:00 Document Registration [id number] 10/23/2018 14:00:00 Document Registration [id number] 09/20/2018 16:00:00 Document Registration [id number] 09/03/2018 13:20:00 Document Registration [id number] 08/21/2018 09:20:00 Document Registration [id number] 08/06/2018 16:00:00 Document Registration [id number] 06/09/2018 10:00:00 Document Registration [id number] 06/03/2018 11:30:00 Document Registration [id number] 08/18/2018 20:48:00 22:30:00 DIS Emergency JATIN MAGAÑA DO [facility] ER FS CHEST PAIN; SOB [id number] 08/14/2018 00:10:00 019 19:30:00 DIS Inpatient SHREYA CONTE DO [facility] 4TH ACUTE CORONARY SYNDROME [id number] 04/15/2018 01:54:00 03:10:00 DIS Emergency TRAVIS COYLE, SUNIL corado [facility] ER FS BACK PAIN
--- NOTE | 2019-05-28 12:29 | ED GI ---
General Stated Complaint: VOMITING History of Present Illness Date Seen by Provider: May 28, 2019 Time Seen by Provider: 12:24 Initial Comments 49-year-old female presents with vomiting. Patient reports that she is been vomiting for the last 6 days. That she has "cyclic vomiting syndrome. That she has difficulty keeping anything down. Patient has some chills. She denies any cough, shortness of breath. She has some abdominal cramping from vomiting. She is not having diarrhea. She is not having no reported fevers. Allergies and Home Medications Allergies Coded Allergies: Sulfa (Sulfonamide Antibiotics) (Unverified Allergy, Unknown, 04/15/18) butorphanol (Unverified Allergy, Unknown, 04/15/18) codeine (Unverified Allergy, Unknown, 04/15/18) Home Medications Amitriptyline HCl 50 Mg Tablet, 25 MG PO HS, (Reported) Aspirin/Acetaminophen/Caffeine 1 Each Tablet, 2 TAB PO Q6-8HR PRN for MIGRAINE, (Reported) Buprenorphine 1 Each Patch.tdwk, 15 MCG TD Fr, (Reported) Cephalexin 500 Mg Tablet, 500 MG PO BID Prescribed by: JEEVAN RODRIGES on 01/25/19 180 Erythromycin Base 1 Gm Oint...g., 0 OS QID, (Reported) 10 DAY SUPPLY FILLED 08-10-18 APPLY 1/2 INCH RIBBON Estradiol 1 Mg Tablet, 1 MG PO DAILY, (Reported) Famotidine 20 Mg Tablet, 20 MG PO BID, (Reported) Levocarnitine 500 Mg Tablet, 500 MG PO DAILY, (Reported) Levothyroxine Sodium 175 Mcg Tablet, 175 MCG PO DAILY, (Reported) Nitrofurantoin Macrocrystal 100 Mg Capsule, 100 MG PO Q12H, (Reported) 7 DAY THERAPY FILLED 08-06-18 Ondansetron 4 Mg Tab.rapdis, 4 MG PO Q6H PRN for NAUSEA/VOMITING Prescribed by: KANWAL DENTON on 05/28/19 1529 Pregabalin 100 Mg Capsule, 100 MG PO BID, (Reported) LAST FILLED #84 04-18-18 Promethazine HCl 25 Mg Tablet, 25 MG PO Q12H PRN for NAUSEA/VOMITING-2ND LINE, (Reported) Promethazine HCl 12.5 Mg Supp, 12.5 MG RC Q6H PRN for NAUSEA/VOMITING-2ND LINE, (Reported) Ubidecarenone/Vit E Acetate 1 Each Capsule, 100 MG PO HS, (Reported) Vitamin B Complex 1 Each Capsule, 1 CAP PO HS, (Reported) Patient Home Medication List Home Medication List Reviewed: Yes Review of Systems Review of Systems Constitutional: chills; No dizziness, No fever, No weakness Respiratory: Denies Cough, Denies Shortness of Air Cardiovascular: Denies Chest Pain Gastrointestinal: See HPI, Abdominal Pain; Denies Constipated, Denies Diarrhea, Denies Difficulty Swallowing; Nausea, Vomiting Musculoskeletal: no symptoms reported Skin: no symptoms reported Psychiatric/Neurological: No Symptoms Reported Endocrine: No Symptoms Reported Hematologic/Lymphatic: No Symptoms Reported Past Ozcrjes-Tpgcih-Vbnitx Hx Past Med/Social Hx: Reviewed Nursing Past Med/Soc Hx Patient Social History Type Used: Cigarettes 2nd Hand Smoke Exposure: Yes Recent Foreign Travel: Yes Recent Hopitalizations: No Immunizations Up To Date Tetanus Booster (TDap): Less than 5yrs Seasonal Allergies Seasonal Allergies: No Past Medical History Surgeries: Yes (Bilateral carpal tunnel, Nevro HF10 Spinal Cord Stimulator, Arthroscopy Rt) Section, Gallbladder, Hysterectomy, Tonsillectomy Respiratory: No Cardiac: No Neurological: Yes 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 [employer] WORK[employer] History: Hysterectomy Sexually Transmitted Disease: No HIV/AIDS: No Genitourinary: Yes Kidney Infection, Bladder Infection Gastrointestinal: No Musculoskeletal: Yes Osteoporosis, Fibromyalgia, Chronic Back Pain Endocrine: No HEENT: No Cancer: Yes Thyroid Did You Recieve Any Treatments: Yes What Type of Treatment Did You: Other Psychosocial: Yes Bipolar Integumentary: No Blood Disorders: No Family Medical History Cardiovascular disease 19 FATHER Physical Exam Vital Signs Vital Signs - First Documented 05/28/19 12:35 Temp 36.5 Pulse 74 Resp 20 B/P (MAP) 148/97 (114) Pulse Ox 98 Capillary Refill : Height/Weight/BMI Height: 5'4.00" Weight: 100lbs. oz. 45.164958qw; 18.00 BMI Method:Stated General Appearance: mild distress, other (disheveled) Respiratory: lungs clear, normal breath sounds Cardiovascular: regular rate, rhythm Gastrointestinal: soft Neurologic/Psychiatric: alert, normal mood/affect, oriented x 3 Skin: normal color, warm/dry Progress/Results/Core Measures Results/Orders Lab Results Laboratory Tests Test 05/28/19 12:40 05/28/19 15:33 Range/Units White Blood Count 16.8 H 4.3-11.0 10^3/uL Red Blood Count 4.82 4.35-5.85 10^6/uL Hemoglobin 16.3 H 11.5-16.0 G/DL Hematocrit 46 35-52 % Mean Corpuscular Volume 94 80-99 FL Mean Corpuscular Hemoglobin 34 25-34 PG Mean Corpuscular Hemoglobin Concent 36 32-36 G/DL Red Cell Distribution Width 13.2 10.0-14.5 % Platelet Count 270 130-400 10^3/uL Mean Platelet Volume 11.7 H 7.4-10.4 FL Neutrophils (%) (Auto) 79 H 42-75 % Lymphocytes (%) (Auto) 15 12-44 % Monocytes (%) (Auto) 4 0-12 % Eosinophils (%) (Auto) 1 0-10 % Basophils (%) (Auto) 0 0-10 % Neutrophils # (Auto) 13.3 H 1.8-7.8 X 10^3 Lymphocytes # (Auto) 2.5 1.0-4.0 X 10^3 Monocytes # (Auto) 0.7 0.0-1.0 X 10^3 Eosinophils # (Auto) 0.1 0.0-0.3 10^3/uL Basophils # (Auto) 0.1 0.0-0.1 10^3/uL Neutrophils % (Manual) 75 % Lymphocytes % (Manual) 19 % Monocytes % (Manual) 3 % Eosinophils % (Manual) 0 % Basophils % (Manual) 1 % Band Neutrophils 2 % Blood Morphology Comment NORMAL Sodium Level 135 135-145 MMOL/L Potassium Level 3.3 L 3.6-5.0 MMOL/L Chloride Level 91 L 98-107 MMOL/L Carbon Dioxide Level 25 21-32 MMOL/L Anion Gap 19 H 5-14 MMOL/L Blood Urea Nitrogen 11 7-18 MG/DL Creatinine 0.63 0.60-1.30 MG/DL Estimat Glomerular Filtration Rate > 60 BUN/Creatinine Ratio 17 Glucose Level 150 H 70-105 MG/DL Calcium Level 9.7 8.5-10.1 MG/DL Corrected Calcium 8.5-10.1 MG/DL Total Bilirubin 0.5 0.1-1.0 MG/DL Aspartate Amino Transf (AST/SGOT) 25 5-34 U/L Alanine Aminotransferase (ALT/SGPT) 22 0-55 U/L Alkaline Phosphatase 57 40-136 U/L Total Protein 7.7 6.4-8.2 GM/DL Albumin 4.8 H 3.2-4.5 GM/DL Lipase 14 8-78 U/L Serum Alcohol < 10 <10 MG/DL Urine Color YELLOW Urine Clarity CLOUDY Urine pH 8.5 5-9 Urine Specific Rutledge 1.020 1.016-1.022 Urine Protein TRACE H NEGATIVE Urine Glucose (UA) NEGATIVE NEGATIVE Urine Ketones 2+ H NEGATIVE Urine Nitrite NEGATIVE NEGATIVE Urine Bilirubin NEGATIVE NEGATIVE Urine Urobilinogen 0.2 < = 1.0 MG/DL Urine Leukocyte Esterase 2+ H NEGATIVE Urine RBC (Auto) NEGATIVE NEGATIVE Urine RBC NONE /HPF Urine WBC 10-25 H /HPF Urine Squamous Epithelial Cells 25-50 H /HPF Urine Crystals PRESENT H /LPF Urine Amorphous Sediment MOD BILLIE PHOSPHATE H /LPF Urine Bacteria LARGE H /HPF Urine Casts NONE /LPF Urine Mucus MODERATE H /LPF Urine Culture Indicated YES Urine Opiates Screen NEGATIVE NEGATIVE Urine Oxycodone Screen NEGATIVE NEGATIVE Urine Methadone Screen NEGATIVE NEGATIVE Urine Propoxyphene Screen NEGATIVE NEGATIVE Urine Barbiturates Screen NEGATIVE NEGATIVE Ur Tricyclic Antidepressants Screen NEGATIVE NEGATIVE Urine Phencyclidine Screen NEGATIVE NEGATIVE Urine Amphetamines Screen NEGATIVE NEGATIVE Urine Methamphetamines Screen NEGATIVE NEGATIVE Urine Benzodiazepines Screen NEGATIVE NEGATIVE Urine Cocaine Screen NEGATIVE NEGATIVE Urine Cannabinoids Screen POSITIVE H NEGATIVE My Orders Orders - DENTON,KANWAL L DO Alcohol (05/28/19 12:32) Cbc With Automated Diff (05/28/19 12:32) Comprehensive Metabolic Panel (05/28/19 12:32) Lipase (05/28/19 12:32) Ed Iv/Invasive Line Start (05/28/19 12:32) Lactated Ringers (Lr 1000 Ml Iv Solution (05/28/19 12:32) Metoclopramide Injection (Reglan Injecti (05/28/19 12:32) Diphenhydramine Injection (Benadryl Inje (05/28/19 12:45) Manual Differential (05/28/19 12:40) Abdomen (Kub) 1 View (05/28/19 12:32) Ondansetron Injection (Zofran Injectio (05/28/19 13:30) Iohexol Injection (Omnipaque 350 Mg/Ml 1 (05/28/19 14:00) Received Contrast (Hold Metformin- Contr (05/28/19 14:00) Sodium Chloride Flush (Catheter Flush Sy (05/28/19 14:00) Ns (Ivpb) (Sodium Chloride 0.9% Ivpb Bag (05/28/19 14:00) Ct Abdomen/Pelvis Wo (05/28/19 13:45) Ua Culture If Indicated (05/28/19 15:33) Drug Screen Stat (Urine) (05/28/19 15:33) Ketorolac Injection (Toradol Injection) (05/28/19 15:33) Urine Culture (05/28/19 15:33) Medications Given in ED Current Medications Medications Dose Ordered Sig/Davidson Route Start Time Stop Time Status Last Admin Dose Admin Diphenhydramine HCl 25 mg ONCE ONCE IVP 05/28/19 12:45 05/28/19 12:46 DC 05/28/19 12:46 25 MG Lactated Ringer's 1,000 ml @ 0 mls/hr Q0M ONCE IV 05/28/19 12:32 05/28/19 12:36 DC 05/28/19 12:46 999 MLS/HR Ondansetron HCl 4 mg ONCE ONCE IVP 05/28/19 13:30 05/28/19 13:31 DC 05/28/19 13:29 4 MG Vital Signs/I&O 05/28/19 12:35 Temp 36.5 Pulse 74 Resp 20 B/P (MAP) 148/97 (114) Pulse Ox 98 Progress Progress Note : Time: 15:27 Progress Note Patient with history of similar cyclic vomiting episodes. Patient reports that she still nauseated however she was over 2 hours with no active vomiting. Patient with negative CT of her abdomen. She will be discharged home with nausea medication. She should follow-up with her primary care provider for outpatient management of her symptoms. Diagnostic Imaging Diagonstic Imaging: Xray Plain Films/CT/US/NM/MRI: abdomen Comments NAME: JUVENTINO BERNABE MED REC#: [id number] PT STATUS: REG ER : 1970 PHYSICIAN: KANWAL DENTON DO ADMIT DATE: 05/28/19/ER FS Draft Date of Exam:05/28/19 ABDOMEN (KUB) 1 VIEW EXAMINATION: Abdominal radiographs, single view, 2 images. DATE: May 28, 2019. CLINICAL INDICATION: 49-year-old female, vomiting and abdominal pain for 5 days. COMPARISON: CT abdomen pelvis January 25, 2019. COMMENTS: Lucency to the left of midline at the level of L4 and L5 may relate to a distended gas-filled segment of bowel measuring up to 6.3 cm in diameter. There is no otherwise identified potential gas distended segment of bowel. There is no pneumatosis or portal venous gas. There is an assist device with leads extending to the superior margin of the field of view overlying the spine. IMPRESSION: 1. Potential focally distended gas-filled segment of bowel in the left abdomen which is difficult to evaluate whether or not that this is truly bowel, small bowel, or large bowel. Particularly if there are concerning symptoms clinically, further evaluation with CT abdomen and pelvis with intravenous contrast is recommended. 2. No additional potential gas distended segment of bowel. Reviewed: Reviewed by Me Departure Impression Primary Impression: Cyclical vomiting Additional Impressions: Cannabis hyperemesis syndrome concurrent with and due to cannabis abuse Cystitis Disposition: HOME, SELF-CARE Condition: Stable Departure-Patient Inst. Referrals: [facility] (PCP) Primary Care Physician KATHY DUMONT APRN (Family) Primary Care Physician Patient Instructions: Nausea and Vomiting, Adult (DC), Acute Cystitis (DC), Marijuana Use and Addiction (DC) Add. Discharge Instructions: Emergency department focuses on treating and ruling out life-threatening diseases. Whenever possible, a diagnosis is given. However, most patients are given an impression based on their history, physical exam, and workup during your brief time in the ER. Information about probable diagnosis and other educational material has been provided. Please take the time to read and understand this information. It is very important that you follow up with a physician as discussed during the visit today. Failure to adhere to your follow-up instructions may lead to severe disability, injury, or so please make sure to keep your appointments or obtain one as requested. Please keep in mind the emergency department is not designed to your primary care or "family doctor" and nonurgent issues are best evaluated by an outpatient physician Scripts Nitrofurantoin Macrocrystal (Nitrofurantoin) 100 Mg Capsule 100 MG PO BID for 5 Days, #10 CAP 0 Refills Prov: KANWAL DENTON DO 05/28/19 Ondansetron (Ondansetron Odt) 4 Mg Tab.rapdis 4 MG PO Q6H PRN for NAUSEA/VOMITING, #20 TAB 0 Refills Prov: KANWAL DENTON DO 05/28/19 KANWAL DENTON DO May 28, 2019 12:29
[2019-05-28] MEDS ORDERED: LACTATED RINGERS 1,000 ML IV ONE (12:32)
[2019-05-28] MEDS ORDERED: METOCLOPRAMIDE INJ 10 MG/2 ML (REGLAN) IVP STA (12:32)
[2019-05-28] MEDS ORDERED: diphenhydrAMINE 50 MG/ML INJ (BENADRYL) IVP ONE (12:45)
[2019-05-28 12:51] LABS: BASOPHILS # (AUTO) 0.1 10^3/uL (0.0-0.1); BASOPHILS % (AUTO) 0 % (0-10); EOSINOPHILS # (AUTO) 0.1 10^3/uL (0.0-0.3); EOSINOPHILS % (AUTO) 1 % (0-10); HEMATOCRIT 46 % (35-52); HEMOGLOBIN 16.3 G/DL (11.5-16.0); LYMPHOCYTES # (AUTO) 2.5 X 10^3 (1.0-4.0); LYMPHOCYTES % (AUTO) 15 % (12-44); MEAN CORPUSCULAR HEMOGLOBIN 34 PG (25-34); MEAN CORPUSCULAR HGB CONC 36 G/DL (32-36); MEAN CORPUSCULAR VOLUME 94 FL (80-99); MEAN PLATELET VOLUME 11.7 FL (7.4-10.4); MONOCYTES # (AUTO) 0.7 X 10^3 (0.0-1.0); MONOCYTES % (AUTO) 4 % (0-12); NEUTROPHILS # (AUTO) 13.3 X 10^3 (1.8-7.8); NEUTROPHILS % (AUTO) 79 % (42-75); PLATELET COUNT 270 10^3/uL (130-400); RED CELL DISTRIBUTION WIDTH 13.2 % (10.0-14.5); WHITE BLOOD COUNT 16.8 10^3/uL (4.3-11.0)
--- NOTE | 2019-05-28 13:06 | Diagnostic Imaging Report ---
EXAMINATION: Abdominal radiographs, single view, 2 images. DATE: May 28, 2019. CLINICAL INDICATION: 49-year-old female, vomiting and abdominal pain for 5 days. COMPARISON: CT abdomen pelvis January 25, 2019. COMMENTS: Lucency to the left of midline at the level of L4 and L5 may relate to a distended gas-filled segment of bowel measuring up to 6.3 cm in diameter. There is no otherwise identified potential gas distended segment of bowel. There is no pneumatosis or portal venous gas. There is an assist device with leads extending to the superior margin of the field of view overlying the spine. IMPRESSION: 1. Potential focally distended gas-filled segment of bowel in the left abdomen which is difficult to evaluate whether or not that this is truly bowel, small bowel, or large bowel. Particularly if there are concerning symptoms clinically, further evaluation with CT abdomen and pelvis with intravenous contrast is recommended. 2. No additional potential gas distended segment of bowel. Dictated by: Dictated on workstation # [id number]
[2019-05-28 13:10] LABS: BUN/CREATININE RATIO 17; CALCIUM 9.7 MG/DL (8.5-10.1); CARBON DIOXIDE 25 MMOL/L (21-32); CHLORIDE 91 MMOL/L (98-107); CREATININE SERUM 0.63 MG/DL (0.60-1.30); GFR ESTIMATED > 60; GLUCOSE 150 MG/DL (70-105); POTASSIUM 3.3 MMOL/L (3.6-5.0); SODIUM 135 MMOL/L (135-145)
[2019-05-28 13:11] LABS: ALANINE AMINOTRANSFERASE 22 U/L (0-55); ALBUMIN 4.8 GM/DL (3.2-4.5); ALKALINE PHOSPHATASE 57 U/L (40-136); BILIRUBIN,TOTAL 0.5 MG/DL (0.1-1.0); LIPASE 14 U/L (8-78); TOTAL PROTEIN 7.7 GM/DL (6.4-8.2)
[2019-05-28] MEDS ORDERED: ONDANSETRON 4 MG/2 ML (SDV) Z0FRAN IVP ONE (13:30)
[2019-05-28 13:49] LABS: BAND NEUTROPHILS 2 %; BASOPHILS % (MANUAL) 1 %; EOSINOPHILS % (MANUAL) 0 %; LYMPHOCYTES % (MANUAL) 19 %; MONOCYTES % (MANUAL) 3 %; NEUTROPHILS % (MANUAL) 75 %; RBC MORPH NORMAL
[2019-05-28] MEDS ORDERED: IOHEXOL 350 MG/ML 100 ML (OMNIPAQUE 350) VIAL IV ONE (14:00)
[2019-05-28] MEDS ORDERED: HOLD METFORMIN - RECEIVED CONTRAST 20 ML VIAL IV SCH (14:00)
[2019-05-28] MEDS ORDERED: CATHETER FLUSH 10 ML SYR IV PRN (14:00)
[2019-05-28] MEDS ORDERED: NS 100 ML (IVPB) BAG IV ONE (14:00)
--- NOTE | 2019-05-28 15:18 | Diagnostic Imaging Report ---
PROCEDURE: CT abdomen and pelvis without contrast. TECHNIQUE: Multiple contiguous axial images were obtained through the abdomen and pelvis without the use of intravenous contrast. Auto Exposure Controls were utilized during the CT exam to meet ALARA standards for radiation dose reduction. INDICATION: Nausea and vomiting with generalized abdominal pain for 5 days. Patient has history of thyroid cancer. CORRELATION is made with prior CT from 01/25/2019. FINDINGS: The lung bases are clear. No discrete liver mass is detected. Gallbladder is surgically absent. No biliary ductal dilatation is seen. The pancreas and spleen are unremarkable. No adrenal mass is detected. No renal calculi or hydronephrosis is seen. Aorta is non-aneurysmal. The small and large bowel loops are normal caliber. There is no obstruction. No free fluid or fluid collection is seen. Bladder is unremarkable. Uterus appears to be surgically absent. No inflammatory changes are identified. Spinal leads are identified in the lumbar epidural space. Battery pack is in the right gluteal region. IMPRESSION: Unremarkable noncontrast CT of the abdomen and pelvis. No acute abnormality is detected. Dictated by: Dictated on workstation # [id number]
[2019-05-28] MEDS ORDERED: ONDA4TAB11 PO (15:29)
[2019-05-28] MEDS ORDERED: KETOROLAC 30 MG/ML VIAL IVP STA (15:33)
[2019-05-28 16:06] LABS: BACTERIA,URINE LARGE /HPF; BILIRUBIN,URINE NEGATIVE (NEGATIVE); CLARITY,URINE CLOUDY; COLOR,URINE YELLOW; GLUCOSE, URINE (UA) NEGATIVE (NEGATIVE); KETONES,URINE 2+ (NEGATIVE); LEUKOCYTE ESTERASE ,URINE 2+ (NEGATIVE); NITRITE,URINE NEGATIVE (NEGATIVE); PH,URINE 8.5 (5-9); PROTEIN,URINE TRACE (NEGATIVE); SQUAMOUS EPITHELIAL CELL,UR 25-50 /HPF
[2019-05-28 16:07] LABS: AMORPHOUS SEDIMENT,UR MOD AMOR PHOSPHATE /LPF
[2019-05-28 16:10] LABS: AMPHETAMINE SCREEN, URINE NEGATIVE (NEGATIVE); BARBITURATE SCREEN URINE NEGATIVE (NEGATIVE); BENZODIAZEPINES SCREEN URINE NEGATIVE (NEGATIVE); CANNABINOID SCREEN, URINE POSITIVE (NEGATIVE); COCAINE SCREEN URINE NEGATIVE (NEGATIVE); METHADONE STAT NEGATIVE (NEGATIVE); METHAMPHETAMINE SCREEN URINE S NEGATIVE (NEGATIVE); OPIATE SCREEN URINE NEGATIVE (NEGATIVE); OXYCODONE STAT NEGATIVE (NEGATIVE); PROPOXYPHENE STAT NEGATIVE (NEGATIVE); TRICYCLIC ANTIDEPRESSANTS SCRE NEGATIVE (NEGATIVE)
[2019-05-28] MEDS ORDERED: NITR100C PO (16:20)
[2019-05-28 16:39] VITALS: BP 102/72
== END 2019-05-28 16:39 | disposition home or self-care (01) ==
LOC: EDUNIT# 12:20 → ER FS 12:21
DX: R11.15 Cyclical vomiting syndrome unrelated to migraine (principal); F12.10 Cannabis abuse, uncomplicated; N30.90 Cystitis, unspecified without hematuria; F31.9 Bipolar disorder, unspecified; M81.0 Age-related osteoporosis without current pathological fracture; M79.7 Fibromyalgia; Z85.850 Personal history of malignant neoplasm of thyroid
CPT/HCPCS: 36415; 74018; 74176; 80053; 80306; 80320; 81000; 83690; 85007; 85027; 87088

== ENCOUNTER 2020-08-09 16:53 | Emergency (ER) | payer MEDICARE, MEDICAID ==
[~2020-08-09] VITALS: Ht 162 cm; Wt 47.0 kg
[~2020-08-09 16:53] MED LIST changes: +ONDA4TAB11 PO; +TIZA-169 PO; -TIZA2TAB4 PO
[2020-08-09 17:06] VITALS: BP 95/60
[2020-08-09] MEDS ORDERED: ONDANSETRON 4 MG/2 ML (SDV) Z0FRAN IVP ONE (17:15)
[2020-08-09] MEDS ORDERED: NS IV 1000 ML 1,000 ML IV SCH ×2 (17:15→18:30)
--- NOTE | 2020-08-09 17:20 | ED GI ---
General Chief Complaint: Abdominal/GI Problems Stated Complaint: GEN WEAKNESS Nursing Triage Note: PT REPORTS HER "CVS" IS FLARED UP. CYCLIC VOMITING SYNDROME SINCE SATURDAY. SHE REPORTS SHE IS TRYING NOT TO SMOKE MUCH MARIJUANA AND TRYING TO QUIT IT ALL. Sepsis Screen: No Definite Risk History of Present Illness Date Seen by Provider: Aug 09, 2020 Time Seen by Provider: 17:05 Initial Comments 50-year-old female presents with vomiting and nausea for the past 2 days. States she has been unable to hold down even liquids and is feeling dehydrated and weak since then. Denies fever chills. Patient states "it is my CVS acting up" (cyclic vomiting). Admitted long-term marijuana user and states she is trying to quit. Allergies and Home Medications Allergies Coded Allergies: Sulfa (Sulfonamide Antibiotics) (Unverified Allergy, Unknown, 04/15/18) butorphanol (Unverified Allergy, Unknown, 04/15/18) codeine (Unverified Allergy, Unknown, 04/15/18) Home Medications Amitriptyline HCl 50 Mg Tablet, 25 MG PO HS, (Reported) Aspirin/Acetaminophen/Caffeine 1 Each Tablet, 2 TAB PO Q6-8HR PRN for MIGRAINE, (Reported) Buprenorphine 1 Each Patch.tdwk, 15 MCG TD Fr, (Reported) Cephalexin 500 Mg Tablet, 500 MG PO BID Prescribed by: JEEVAN RODRIGES on 01/25/191808 Erythromycin Base 1 Gm Oint...g., 0 OS QID, (Reported) 10 DAY SUPPLY FILLED 08-10-18 APPLY 1/2 INCH RIBBON Estradiol 1 Mg Tablet, 1 MG PO DAILY, (Reported) Famotidine 20 Mg Tablet, 20 MG PO BID, (Reported) Levocarnitine 500 Mg Tablet, 500 MG PO DAILY, (Reported) Levothyroxine Sodium 175 Mcg Tablet, 175 MCG PO DAILY, (Reported) Nitrofurantoin Macrocrystal 100 Mg Capsule, 100 MG PO Q12H, (Reported) 7 DAY THERAPY FILLED 08-06-18 Nitrofurantoin Macrocrystal 100 Mg Capsule, 100 MG PO BID Prescribed by: KANWAL DENTON on 05/28/19 1620 Ondansetron 4 Mg Tab.rapdis, 4 MG PO Q6H PRN for NAUSEA/VOMITING Prescribed by: KANWAL DENTON on 05/28/19 1529 Pregabalin 100 Mg Capsule, 100 MG PO BID, (Reported) LAST FILLED #84 04-18-18 Promethazine HCl 25 Mg Tablet, 25 MG PO Q12H PRN for NAUSEA/VOMITING-2ND LINE, (Reported) Promethazine HCl 12.5 Mg Supp, 12.5 MG RC Q6H PRN for NAUSEA/VOMITING-2ND LINE, (Reported) Ubidecarenone/Vit E Acetate 1 Each Capsule, 100 MG PO HS, (Reported) Vitamin B Complex 1 Each Capsule, 1 CAP PO HS, (Reported) Patient Home Medication List Home Medication List Reviewed: Yes Review of Systems Review of Systems Constitutional: No chills, No dizziness, No fever; malaise, weakness, weight loss EENTM: No Symptoms Reported Respiratory: Denies Cough, Denies Shortness of Air Cardiovascular: Denies Chest Pain, Denies Edema, Denies Palpitations, Denies Syncope Gastrointestinal: Denies Abdomen Distended, Denies Abdominal Pain, Denies Constipated, Denies Diarrhea; Nausea, Poor Appetite, Poor Fluid Intake, Vomiting Musculoskeletal: back pain (chronic); No muscle pain; muscle weakness (genrealized) Skin: No change in color, No lesions, No rash Past Qyjwhut-Hhjohp-Blgwvt Hx Past Med/Social Hx: Reviewed Nursing Past Med/Soc Hx Patient Social History Alcohol Use: Denies Use Drug of Choice: MARIJUANA Type Used: Cigarettes 2nd Hand Smoke Exposure: Yes Recent Infectious Disease Expo: No Recent Hopitalizations: No Immunizations Up To Date Tetanus Booster (TDap): Less than 5yrs Seasonal Allergies Seasonal Allergies: No Past Medical History Surgeries: Yes (Bilateral carpal tunnel, Nevro HF10 Spinal Cord Stimulator, Arthroscopy Rt) Section, Gallbladder, Hysterectomy, Tonsillectomy Respiratory: No Cardiac: No Neurological: Yes 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 [employer]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 Sexually Transmitted Disease: No HIV/AIDS: No Genitourinary: Yes Kidney Infection, Bladder Infection Gastrointestinal: No Musculoskeletal: Yes Osteoporosis, Fibromyalgia, Chronic Back Pain Endocrine: No HEENT: No Cancer: Yes Thyroid Did You Recieve Any Treatments: Yes What Type of Treatment Did You: Other Psychosocial: Yes Bipolar Integumentary: No Blood Disorders: No Family Medical History Cardiovascular disease 19 FATHER Physical Exam Vital Signs Vital Signs - First Documented 08/09/20 17:06 Temp 36.0 Pulse 108 Resp 20 B/P (MAP) 95/60 (72) Pulse Ox 98 O2 Delivery Room Air Capillary Refill : Less Than 3 Seconds Height/Weight/BMI Height: 5'4.00" Weight: 100lbs. oz. 45.597740lc; 17.00 BMI Method:Stated General Appearance: WD/WN, no apparent distress HEENT: PERRL/EOMI, normal ENT inspection Neck: non-tender, supple Respiratory: chest non-tender, lungs clear, normal breath sounds, no respiratory distress, no accessory muscle use Cardiovascular: regular rate, rhythm, no edema, no gallop, no JVD Gastrointestinal: normal bowel sounds, non tender, soft, no organomegaly, no pulsatile mass Extremities: non-tender, normal inspection Neurologic/Psychiatric: no motor/sensory deficits, alert, normal mood/affect Skin: normal color, warm/dry Focused Exam Lactate Level 08/09/20 17:25: Lactic Acid Level 1.21 Lactic Acid Level Laboratory Tests Test 08/09/20 17:25 Lactic Acid Level 1.21 MMOL/L (0.50-2.00) Progress/Results/Core Measures Results/Orders Lab Results Laboratory Tests Test 08/09/20 17:25 08/09/20 18:37 Range/Units White Blood Count 16.7 H 4.3-11.0 10^3/uL Red Blood Count 4.84 4.35-5.85 10^6/uL Hemoglobin 15.8 11.5-16.0 G/DL Hematocrit 45 35-52 % Mean Corpuscular Volume 94 80-99 FL Mean Corpuscular Hemoglobin 33 25-34 PG Mean Corpuscular Hemoglobin Concent 35 32-36 G/DL Red Cell Distribution Width 12.9 10.0-14.5 % Platelet Count 209 130-400 10^3/uL Mean Platelet Volume 11.7 H 7.4-10.4 FL Immature Granulocyte % (Auto) 0 % Neutrophils (%) (Auto) 61 42-75 % Lymphocytes (%) (Auto) 29 12-44 % Monocytes (%) (Auto) 9 0-12 % Eosinophils (%) (Auto) 1 0-10 % Basophils (%) (Auto) 0 0-10 % Neutrophils # (Auto) 10.2 H 1.8-7.8 X 10^3 Lymphocytes # (Auto) 4.8 H 1.0-4.0 X 10^3 Monocytes # (Auto) 1.5 H 0.0-1.0 X 10^3 Eosinophils # (Auto) 0.1 0.0-0.3 10^3/uL Basophils # (Auto) 0.1 0.0-0.1 10^3/uL Immature Granulocyte # (Auto) 0.1 0.0-0.1 10^3/uL Neutrophils % (Manual) 66 % Lymphocytes % (Manual) 29 % Monocytes % (Manual) 5 % Eosinophils % (Manual) 0 % Basophils % (Manual) 0 % Band Neutrophils 0 % Sodium Level 131 L 135-145 MMOL/L Potassium Level 3.6 3.6-5.0 MMOL/L Chloride Level 92 L 98-107 MMOL/L Carbon Dioxide Level 26 21-32 MMOL/L Anion Gap 13 5-14 MMOL/L Blood Urea Nitrogen 20 H 7-18 MG/DL Creatinine 0.65 0.60-1.30 MG/DL Estimat Glomerular Filtration Rate > 60 BUN/Creatinine Ratio 31 Glucose Level 102 70-105 MG/DL Lactic Acid Level 1.21 0.50-2.00 MMOL/L Calcium Level 9.6 8.5-10.1 MG/DL Corrected Calcium 9.3 8.5-10.1 MG/DL Total Bilirubin 0.9 0.1-1.0 MG/DL Aspartate Amino Transf (AST/SGOT) 15 5-34 U/L Alanine Aminotransferase (ALT/SGPT) 10 0-55 U/L Alkaline Phosphatase 55 40-136 U/L Total Protein 6.8 6.4-8.2 GM/DL Albumin 4.4 3.2-4.5 GM/DL My Orders Orders - SCOOTERVENSTVERONICA MCGARRY DO Cbc With Automated Diff (08/09/20 17:14) Comprehensive Metabolic Panel (08/09/20 17:14) Lactic Acid Analyzer (08/09/20 17:14) Ed Iv/Invasive Line Start (08/09/20 17:14) Ns Iv 1000 Ml (Sodium Chloride 0.9%) (08/09/20 17:15) Ondansetron Injection (Zofran Injectio (08/09/20 17:15) Urinalysis (08/09/20 17:29) Manual Differential (08/09/20 17:25) Dicyclomine Injection (Bentyl Injection) (08/09/20 18:18) Ns Iv 1000 Ml (Sodium Chloride 0.9%) (08/09/20 18:30) Medications Given in ED Current Medications Medications Dose Ordered Sig/Davidson Route Start Time Stop Time Status Last Admin Dose Admin Ondansetron HCl 4 mg ONCE ONCE IVP 08/09/20 17:15 08/09/20 17:16 DC 08/09/20 17:23 4 MG Vital Signs/I&O 08/09/20 17:06 Temp 36.0 Pulse 108 Resp 20 B/P (MAP) 95/60 (72) Pulse Ox 98 O2 Delivery Room Air Blood Pressure Mean: 72 Departure Impression Primary Impression: Nausea and vomiting Qualified Codes: R11.2 - Nausea with vomiting, unspecified Additional Impression: Dehydration Disposition: 01 HOME, SELF-CARE Condition: Improved Departure-Patient Inst. Decision time for Depature: 18:52 Referrals: KATHY DUMONT APRN (PCP) Primary Care Physician [facility] (Family) Primary Care Physician Patient Instructions: Nausea and Vomiting, Adult Add. Discharge Instructions: Follow up with your PCPAlexander in 2 to 3 days if not improving, return to the ER if worse. All discharge instructions reviewed with patient and/or family. Voiced understanding. Scripts Ondansetron (Ondansetron Odt) 4 Mg Tab.rapdis 4 MG PO TID for Nausea, #10 TAB Prov: VERONICA RAPHAEL DO 08/09/20 Hyoscyamine Sulfate (Levsin-Sl) 0.125 Mg Tab.subl 0.125 MG SL Q4H, #15 TAB 0 Refills Prov: VERONICA RAPHAEL DO 08/09/20 VERONICA RAPHAEL DO Aug 09, 2020 17:20
[2020-08-09 17:40] LABS: HEMATOCRIT 45 % (35-52); HEMOGLOBIN 15.8 G/DL (11.5-16.0); MEAN CORPUSCULAR HEMOGLOBIN 33 PG (25-34); WHITE BLOOD COUNT 16.7 10^3/uL (4.3-11.0)
[2020-08-09 17:41] LABS: MEAN CORPUSCULAR HGB CONC 35 G/DL (32-36); MEAN CORPUSCULAR VOLUME 94 FL (80-99); MEAN PLATELET VOLUME 11.7 FL (7.4-10.4); PLATELET COUNT 209 10^3/uL (130-400)
[2020-08-09 17:43] LABS: NEUTROPHILS % (AUTO) 61 % (42-75)
[2020-08-09 17:44] LABS: BASOPHILS # (AUTO) 0.1 10^3/uL (0.0-0.1); BASOPHILS % (AUTO) 0 % (0-10); EOSINOPHILS # (AUTO) 0.1 10^3/uL (0.0-0.3); EOSINOPHILS % (AUTO) 1 % (0-10); LYMPHOCYTES # (AUTO) 4.8 X 10^3 (1.0-4.0); LYMPHOCYTES % (AUTO) 29 % (12-44); MONOCYTES # (AUTO) 1.5 X 10^3 (0.0-1.0); MONOCYTES % (AUTO) 9 % (0-12); NEUTROPHILS # (AUTO) 10.2 X 10^3 (1.8-7.8)
[2020-08-09 17:58] LABS: BAND NEUTROPHILS 0 %; BASOPHILS % (MANUAL) 0 %; EOSINOPHILS % (MANUAL) 0 %; LYMPHOCYTES % (MANUAL) 29 %; MONOCYTES % (MANUAL) 5 %; NEUTROPHILS % (MANUAL) 66 %
[2020-08-09 18:01] LABS: SODIUM 131 MMOL/L (135-145)
[2020-08-09 18:02] LABS: ALANINE AMINOTRANSFERASE 10 U/L (0-55); ALBUMIN 4.4 GM/DL (3.2-4.5); ALKALINE PHOSPHATASE 55 U/L (40-136); BILIRUBIN,TOTAL 0.9 MG/DL (0.1-1.0); BUN/CREATININE RATIO 31; CALCIUM 9.6 MG/DL (8.5-10.1); CARBON DIOXIDE 26 MMOL/L (21-32); CHLORIDE 92 MMOL/L (98-107); CREATININE SERUM 0.65 MG/DL (0.60-1.30); GFR ESTIMATED > 60; GLUCOSE 102 MG/DL (70-105); POTASSIUM 3.6 MMOL/L (3.6-5.0); TOTAL PROTEIN 6.8 GM/DL (6.4-8.2)
[2020-08-09] MEDS ORDERED: DICYCLOMINE 10 MG/ML (BENTYL) 2 ML AMP IM STA (18:18)
[2020-08-09] MEDS ORDERED: HYOS0.1283 SL (18:53)
[2020-08-09] MEDS ORDERED: ONDA4TAB11 PO (18:53)
[2020-08-09 18:58] LABS: CLARITY,URINE CLEAR; COLOR,URINE YELLOW; GLUCOSE, URINE (UA) NEGATIVE (NEGATIVE); KETONES,URINE 3+ (NEGATIVE); NITRITE,URINE NEGATIVE (NEGATIVE); PROTEIN,URINE 1+ (NEGATIVE)
[2020-08-09 18:59] LABS: BILIRUBIN,URINE 1+ (NEGATIVE); LEUKOCYTE ESTERASE ,URINE 1+ (NEGATIVE)
[2020-08-09 19:00] LABS: BACTERIA,URINE MODERATE /HPF
== END 2020-08-09 19:08 | disposition home or self-care (01) ==
LOC: EDUNIT# 16:53 → ER FS 16:56
DX: R11.2 Nausea with vomiting, unspecified (principal); E86.0 Dehydration; Z77.22 Contact with and (suspected) exposure to environmental tobacco smoke (acute) (chronic); Z79.82 Long term (current) use of aspirin
CPT/HCPCS: 36415; 80053; 81000; 83605; 85007; 85027; 87077; 87088

== ENCOUNTER 2020-10-16 03:48 | Emergency (ER) | payer MEDICAID, MEDICARE ==
[~2020-10-16] VITALS: Ht 162.5 cm; Wt 54.4 kg
[~2020-10-16 03:48] MED LIST changes: +HYOS0.1283 SL; +MIRT-69; -MIRT30TA6
--- OUTSIDE RECORDS SUMMARY | 2020-10-16 03:54 | XMS REPORT | Clinical Summary ---
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 If you d o not see the information that you expected, contact Release of Information in [facility] [employer] Information Management department at [phone] for further assistan ce in locating additional records.[facility] Allergies Comments Active Allergy Reactions Severity Noted Date Chocolate NAUSEA AND Low 01/11/2016 VOMITING Codeine ANAPHYLAXIS High 11/17/2013 Hyoscyamine Sulfate HEADACHE Low 10/09/2018 Butorphanol Tartrate FLUSHING Medium 4 (SKIN) Sulfa (Sulfonamide NAUSEA AND 11/17/2013 Antibiotics) VOMITING Medications End Date Status Medication Sig Dispensed Refills Start Date Active buprenorphine (BUTRANS) Apply to top 0 15 mcg/hour of skin as ptwkIndications: uses a directed. 20 mcg patch and a 10 mcg Indications: patch uses a 20 mcg patch and a 10 mcg patch Active PREGABALIN (LYRICA PO) Take 50 mg by 0 mouth twice daily. Active ASPIRIN/ACETAMINOPHEN/CAF Take 1 Tab by 0 FEINE (EXCEDRIN MIGRAINE mouth every 4 PO) hours as needed. Active SUMAtriptan (IMITREX) 25 Take 25 mg by 0 mg tablet mouth every 2 hours as needed for Migraine symptoms. Active OXYGEN-AIR DELIVERY Use as 0 SYSTEMS MISC directed as Needed. as needed for migraines Active estradiol (ESTRACE) 1 mg Take 1 mg by 0 tablet mouth daily. Active famotidine (PEPCID) 20 mg Take 20 mg by 0 tablet mouth twice daily. Active lamoTRIgine (LAMICTAL) 25 Take 150 mg 0 mg tablet by mouth daily. Active psyllium seed (with Take by 0 sugar) (FIBER SUPPLEMENT mouth. PO) Active dicyclomine (BENTYL) 10 Take one 30 capsule 1 mg capsuleIndications: capsule by 9 irritable bowel syndrome mouth every 4 hours as needed. Indications: irritable colon Active other medication 1 Dose. 0 Estrogen cream Active VENTOLIN HFA 90 0 mcg/actuation aerosol 0 inhaler Active peg-electrolyte solution Mix as 4000 mL 0 0 (NULYTELY) 420 gram oral directed on 0 solution package. Take as directed by GI office. Active levothyroxine (SYNTHROID) Take 150 mcg 0 150 mcg tablet by mouth daily 30 minutes before breakfast. Active clonazePAM (KLONOPIN) 0.5 Take 0.5 mg 0 mg tablet by mouth twice daily. As needed Active ondansetron (ZOFRAN ODT) Dissolve 4 mg 0 4 mg rapid dissolve by mouth tablet every 8 hours as needed for Nausea or Vomiting. Place on tongue to disolve. Active amitriptyline (ELAVIL) 50 TAKE ONE 30 tablet 2 mg tablet TABLET BY 1 MOUTH AT BEDTIME NEEDED. 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 11/25/2014 Spasm of muscle 11/25/2014 Thoracic or lumbosacral neuritis or radiculitis, unsp ecified 04/29/2008 Lumbago 04/29/2008 Resolved Problems Problem Noted Date Resolved Date Hospital discharge follow-up 09/16/2018 9 Encounters Care Team Description Date Type Specialty 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 NEUROSTIMULATOR PROCEDURE 01/03/2018 Back/N/A INSE RTION/ REPLACEMENT SPINAL NEUROSTIMULATOR PULSE GENERATOR/ YARD HAND performed by Chaya Krishnan MD at [facility] Medical devices from this surgery are i n the Implants section. HX WRIST FRACTURE SURGERY 02/25/1998 - Reconstructi on wrist surgery 02/24/1999 NEUROSTIMULATOR PROCEDURE 04/19/2020 Back/N/A INSE RTION/ REPLACEMENT SPINAL NEUROSTIMULATOR PULSE GENERATOR/ YARD HAND: NEVRO perfor med by Chaya Krishnan MD at [facility] OR Medical devices from this surgery are i n the Implants section. NEUROSTIMULATOR PROCEDURE 04/19/2020 Back/N/A LEATHA TANISHA/ REVISION SPINAL NEUROSTIMULATOR PULSE GENERATOR/ YARD HAND performed by Chaya Krishnan MD at [facility] OR Medical devices from this surgery are i n the Implants section. Medical History Medical History Date Comments Disorder of thyroid gland Emphysema lung (HCC) Cluster headaches Osteopenia Back pain of lumbar region with sciatica Fibromyoma Anxiety June 25 I have alot of stre ss Joint pain ? I have fibromyalgia Other malignant neoplasm without 1999 I had thyroid cancer specification of site (HCC) Nausea Feb 25 I have cyclic vomit ing syndrome Constipation Feb 25 I have it now and t hen Depression ? All my life Unspecified cerebral artery occlusion ? I have had 2 strokes due to medications back in with cerebral infarction (HCC) 1999 Fibromyalgia ? Was diagnosed in On supplemental oxygen therapy 2016 Helps w ith migraines Family History Medical History Relation Name Comments Diabetes Father Mohan White Heart Disease Father Mohan Borjahip Stroke Maternal Albino Grandfather White Stroke Mother Sheila Stroke and aneu rism exploded in head shane Cancer-Colon Neg Hx Celiac Disease Neg Hx GI Cancer Neg Hx Inflammatory Bowel Neg Hx Disease Rectal Cancer Neg Hx Ulcerative Colitis Neg Hx Relation Name Status Comments Father Mohan Alive White Maternal Grandfather Albino White Mother Sheila lynn Social History Date Tobacco Use Types Packs/Day Years Used Quit: 03/12/2019 Former Smoker Cigarettes 0.25 0.5 Smokeless Tobacco: Never Used Tobacco Cessation: Ready to Quit: No; Co unseling Given: No Comments: Using chantix Comments Alcohol Use Standard Drinks/Week No 0 (1 standard drink = 0.6 o z pure alcohol) Sex Assigned at Date Recorded Female 10/13/2019 4:18 PM CDT Last Filed Vital Signs Reading Time Taken Comments Vital Sign 99/66 08/01/2020 3:02 PM CDT Blood Pressure 81 08/01/2020 3:02 PM CDT Pulse 36.8 C (98.3 F) 06/15/2020 2:00 PM CDT Temperature 18 02/25/2020 8:01 AM MONOGRAM AND LETTER PASTER Respiratory Rate 90% 08/01/2020 3:02 PM CDT Oxygen Saturation - - Inhaled Oxygen Concentration 52.2 kg (115 lb) 08/01/2020 3:02 PM CDT Weight 162.6 cm (5' 4") 08/01/2020 3:02 PM CDT Height 19.74 08/01/2020 3:02 PM CDT Body Mass Index Plan of Treatment Health Maintenance Due Date Last Done Comments MEDICARE ANNUAL WELLNESS 1970 VISIT HIV SCREENING 1985 DTAP/TDAP VACCINES (1 - 01/09/1988 Tdap) HEPATITIS C SCREENING 01/09/1988 PHYSICAL (COMPREHENSIVE) 01/09/1988 EXAM CERVICAL CANCER SCREENING 1991 BREAST CANCER SCREENING 2010 SHINGLES RECOMBINANT 01/09/2020 VACCINE (1 of 2) INFLUENZA VACCINE 11/25/2020 COLORECTAL CANCER 07/04/2028 07/04/2018 SCREENING Implants Device Identifier Shelf Expiration Date Model / Serial / L ot Implanted Type Area Manufactur er Wire-02/25/2020 Wire Implanted: Qty: 2 on 02/25/2020 by Chaya Krishnan MD 08/20/2020 TLEAD [id number] / / [id number] Scs Trial Leads-12/04/2017 Bilateral: NEVRO Implanted: Qty: 2 on 12/04/2017 by Thoracic CO Chaya Gonzalez MD N Description:NEVRO SPINAL CORD STIMULATOR TRIAL LEADS x2 03/14/2020 [id number] / [id number] / [id number] Kit Lead [place] N300 - [id number] N/A: Back NEVRO Implanted: Qty: 1 on 01/03/2018 by Chaya Denise MD at [facility] 08/10/2019 [id number] / [id number] / [id number] Ipg Kit - [id number] N/A: Back NEVRO Implanted: Qty: 1 on 01/03/2018 by Chaya Denise MD at [facility] [id number] / [id number] / [id number] Patient Remote Kit - [id number] UNIDENTIFI Implanted: Qty: 1 on 01/03/2018 by ED Chaya Moncada MD at [facility] 05/13/2020 [id number] / [id number] / [id number] Blue Perc Lead Kit - [id number] N/A: Back UNIDEN TIFI Implanted: Qty: 2 on 01/03/2018 by Chaya Mascorro MD at [facility] Explanted: Qty: 1 on 04/19/2020 by Chaya Krishnan MD at [facility] 12/26/2022 [id number] / [id number] / [id number] Kit Neurostimulator Omnia Senza Ii N/A: Back NE VRO BLAINE Implantable Pulse - [id number] Implanted: Qty: 1 on 04/19/2020 by Chaya Krishnan MD at [facility] 09/25/2022 [id number] / [id number] / [id number] Kit Lead [place] N300 - [id number] N/A: Back NEVRO BLAINE Implanted: Qty: 1 on 04/19/2020 by Chaya Krishnan MD at [facility] 03/28/2022 [id number] / [id number] / [id number] Kit Neurostimulator Blue 70cm Nevro N/A: Back N EVRO BLAINE 5mm Spacing Lead Sterile - [id number] Implanted: Qty: 1 on 04/19/2020 by Chaya Krishnan MD at [facility] [id number] 05/25/2021 [id number] / [id number] / [id number] Port Implantable Infusion Powerport Right: Chest C R BARD Clearvue 6fr Slim Suture - [id number] Implanted: Qty: 1 on 06/15/2020 by Riaz Frnacis MD at 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
--- NOTE | 2020-10-16 04:07 | ED Fall/Injury ---
General Stated Complaint: FALL INJURED LEFT SHOULDER Source: patient History of Present Illness Date Seen by Provider: Oct 16, 2020 Time Seen by Provider: 03:50 Initial Comments 50 yo female presents with complaint of pain to left shoulder, ankle, foot since falling at midnight tonight. She was in [place], [place] for her daughter's wedding and her foot came out of her shoe causing her to fall. She took Ibuprofen about 0015. She did not go to be seen at the local ED or any of the multiple facilities that she drove by after the accident. She states she had to get her son and home so she had driven them back to [place] and then drove herself to the ED to be seen. She can not raise up her left arm due to pain in shoulder. She denies numbness or tingling. She has normal sensation and movement of the fingers and hand. She has pain and bruising to the lateral foot/ankle on left side as well. She is having increased pain with trying to bear weight on left leg. Location Injury Occurred: [place], [place] Occurred: this morning Severity: severe Injuries/Pain Location: upper extremity (left shoulder), lower extremity (left ankle/foot) Context: tripped Loss of Consciousness: no loss of consciousness Modifying Factors: Worse With Movement Associated Symptoms (Fall): No Abdominal Pain, No Chest Pain, No Confusion, No Dizziness, No Headache, No Lightheadedness, No Muscle Spasms, No Nausea/Vomiting, No Neck Pain, No Ringing in Ears, No Seizures, No Shortness of Air, No Slurred Speech; Trouble Walking; No Vision Changes Allergies and Home Medications Allergies Coded Allergies: Sulfa (Sulfonamide Antibiotics) (Unverified Allergy, Unknown, 04/15/18) butorphanol (Unverified Allergy, Unknown, 04/15/18) codeine (Unverified Allergy, Unknown, 04/15/18) Home Medications Amitriptyline HCl 50 Mg Tablet, 25 MG PO HS, (Reported) Aspirin/Acetaminophen/Caffeine 1 Each Tablet, 2 TAB PO Q6-8HR PRN for MIGRAINE, (Reported) Buprenorphine 1 Each Patch.tdwk, 15 MCG TD Fr, (Reported) Estradiol 1 Mg Tablet, 1 MG PO DAILY, (Reported) Famotidine 20 Mg Tablet, 20 MG PO BID, (Reported) Hydrocodone/Acetaminophen 1 Each Tablet, 1 TAB PO Q6H PRN for PAIN-SEVERE (8-10) Prescribed by: ISABELLA SEGAL on 10/16/20 0521 Hyoscyamine Sulfate 0.125 Mg Tab.subl, 0.125 MG SL Q4H Prescribed by: VERONICA RAPHAEL on 08/09/201852 Levocarnitine 500 Mg Tablet, 500 MG PO DAILY, (Reported) Levothyroxine Sodium 175 Mcg Tablet, 175 MCG PO DAILY, (Reported) Ondansetron 4 Mg Tab.rapdis, 4 MG PO TID Prescribed by: VERONICA RAPHAEL on 08/09/201852 Pregabalin 100 Mg Capsule, 100 MG PO BID, (Reported) LAST FILLED #84 04-18-18 Ubidecarenone/Vit E Acetate 1 Each Capsule, 100 MG PO HS, (Reported) Vitamin B Complex 1 Each Capsule, 1 CAP PO HS, (Reported) Patient Home Medication List Home Medication List Reviewed: Yes Review of Systems Review of Systems Constitutional: No chills, No fever Eyes: No Symptoms Reported Ears, Nose, Mouth, Throat: no symptoms reported Respiratory: no symptoms reported Cardiovascular: no symptoms reported Gastrointestinal: no symptoms reported Genitourinary: no symptoms reported Musculoskeletal: see HPI Skin: change in color (bruising to lateral ankle and foot on left side) Psychiatric/Neurological: Anxiety; Denies Numbness, Denies Paresthesia, Denies Tingling Past Hkihjkz-Bsuwys-Zhhmtg Hx Immunizations Up To Date Tetanus Booster (TDap): Less than 5yrs Seasonal Allergies Seasonal Allergies: No Past Medical History Surgeries: Yes (Bilateral carpal tunnel, Nevro HF10 Spinal Cord Stimulator, Arthroscopy Rt) Section, Gallbladder, Hysterectomy, Tonsillectomy Respiratory: No Cardiac: No Neurological: Yes 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 Sexually Transmitted Disease: No HIV/AIDS: No Genitourinary: Yes Kidney Infection, Bladder Infection Gastrointestinal: No Musculoskeletal: Yes Osteoporosis, Fibromyalgia, Chronic Back Pain Endocrine: No HEENT: No Cancer: Yes Thyroid Did You Recieve Any Treatments: Yes What Type of Treatment Did You: Other Psychosocial: Yes Bipolar Integumentary: No Blood Disorders: No Family Medical History Cardiovascular disease 19 FATHER Physical Exam Vital Signs Vital Signs - First Documented 10/16/20 04:08 Temp 35.4 Pulse 87 Resp 28 B/P (MAP) 134/86 (102) Pulse Ox 98 O2 Delivery Room Air Capillary Refill : Height, Weight, BMI Height: 5'4.00" Weight: 100lbs. oz. 45.771744bq; 17.00 BMI Method:Stated General Appearance: thin Cardiovascular: normal peripheral pulses, regular rate, rhythm Respiratory: chest non-tender, lungs clear, normal breath sounds Extremities: normal capillary refill, other (pain to left shoulder and decreased ROM. pain to left ankle/foot) Neurologic/Psychiatric: administrator pesticide II-XII nml as tested, alert, oriented x 3 Skin: warm/dry, ecchymosis (left lateral ankle/foot) Will Coma Score Best Eye Response: (4) Open Spontaneously Best Verbal Response: (5) Oriented Best Motor Response: (6) Obeys Commands [place] Total: 15 Procedures/Interventions Splinting and Joint Reduction #1: Location: left shoulder Pre-Proc Neuro Vasc Exam: normal Post-Proc Neuro Vasc Exam: normal Progress Placed in shoulder immobilizer to stabilize left humeral head comminuted fracture. Patient neurovascular intact pre and post immobilizer placement. Splinting and Joint Reduction #2: Location: left foot/ankle Pre-Proc Neuro Vasc Exam: normal Post-Proc Neuro Vasc Exam: normal Progress Placed sadi bandage and post op shoe for left ankle/foot sprain. Pt neurovascular intact both pre and post placement of sadi bandage and post op shoe. Sadi wrap: Yes Progress/Results/Core Measures Results/Orders My Orders Orders - ISABELLA SEGAL MD Ice: Apply To Affected Area (10/16/20 04:00) Shoulder 3 View Left (10/16/20 04:00) Ankle 3 View Left (10/16/20 04:00) Foot 3 View Left (10/16/20 04:00) Ketorolac Injection (Toradol Injection) (10/16/20 04:59) Rx-Hydrocodone/Apap 5-325 Mg (Rx-Vicodin (10/16/20 05:00) Shoulder Immoblizer (10/16/20 05:00) Post-Op Shoe (10/16/20 05:00) Sadi Bandage (10/16/20 05:00) Vital Signs/I&O 10/16/20 04:08 Temp 35.4 Pulse 87 Resp 28 B/P (MAP) 134/86 (102) Pulse Ox 98 O2 Delivery Room Air Progress Progress Note #1: Progress Note pt drove herself to ED and is refusing pain medicine. She has severe pain to left shoulder and some pain to left ankle/foot. No numbness, tingling, decreased sensation. Will order xrays and ice packs Progress Note #2: Progress Note xrays show comminuted impacted left humeral head fracture but no dislocation. possible small avulsion fracture on lateral calcaneus but appears smooth so may be old, however it is in location of bruising and pain. Counseled pt on results and findings and will try shoulder immobilizer for left arm, sadi bandage and post op shoe for left foot. For pain will give Toradol here and have her try Hydrocodone 5/325 at home for severe pain. Send 4 pack of pills with her and script for more if needed to [facility]. Check with TOR Torres with Ortho and if needed he can refer beyond Dr. Espinoza if it is more than he can manage and needs specialist care. Diagnostic Imaging Diagonstic Imaging: Xray Plain Films/CT/US/NM/MRI: ankle (and foot) Comments On my review of 3 views of left ankle and 3 views of left foot she has no definite acute fracture but there is a possible small avulsion fx of lateral calcaneus in area of soft tissue swelling and bruising. Reviewed: Reviewed by Me Diagonstic Imaging: Xray Plain Films/CT/US/NM/MRI: other (shoulder) Comments On my review of 3 views of left shoulder she is not dislocated but has comminuted and slightly impacted proximal humeral head fracture Reviewed: Reviewed by Me Departure Impression Primary Impression: Comminuted left humeral fracture Qualified Codes: S42.355A - Nondisplaced comminuted fracture of shaft of humerus, left arm, initial encounter for closed fracture Additional Impressions: Sprain of left ankle Qualified Codes: S93.402A - Sprain of unspecified ligament of left ankle, initial encounter Fall Qualified Codes: W19.XXXA - Unspecified fall, initial encounter Unspecified sprain of left foot, initial encounter Disposition: 01 HOME, SELF-CARE Condition: Stable Departure-Patient Inst. Decision time for Depature: 05:22 Referrals: KATHY DUMONT APRN (PCP) Primary Care Physician [facility] (Family) Primary Care Physician GLADIS ESPINOZA MD Patient Instructions: Ankle Sprain ED, Foot Sprain ED, Shoulder Fracture (DC), Upper Arm Fracture ED Add. Discharge Instructions: Wear shoulder immobilizer at all times until you follow up with Orthopedics. Call Saturday [phone] to get appointment with Dr. Espinoza or his nurse practitioner Stuart Torres. If the shoulder fracture needs more of a specialist to treat and care for it they can help get you referred to [facility] since you have had other surgeries done there. Ice 20-30 minutes every few hours as needed to help with pain and swelling. Try to keep shoulder and foot elevated to help with pain and swelling. You could use Ibuprofen and Acetaminophen for pain but for severe pain use Hydrocodone/Acetaminophen. Make sure you do not take more than 3,000 mg of Acetaminophen in a 24 hour period. Use sadi bandage and post op shoe for your left foot and ankle to give it support and compression. When you follow up with Orthopedics about your shoulder they can re-evaluate your foot as well. Scripts Hydrocodone/Acetaminophen (Hydrocodone-Acetamin 5-325 mg) 1 Each Tablet 1 TAB PO Q6H PRN for PAIN-SEVERE (8-10) for 5 Days, #20 TAB 0 Refills Prov: ISABELLA SEGAL MD 10/16/20 ISABELLA SEGAL MD Oct 16, 2020 04:07
[2020-10-16] MEDS ORDERED: KETOROLAC 60 MG/2 ML VIAL IM STA (04:59)
[2020-10-16] MEDS ORDERED: ACHD5005 PO (05:21)
[2020-10-16 05:34] VITALS: BP 129/88
--- NOTE | 2020-10-16 06:20 | Diagnostic Imaging Report ---
EXAMINATION: Left ankle at 3:54 AM INDICATION: Fell, ankle pain 3 views were obtained. There are no prior studies available for comparison. On the AP view, there is a smooth curvilinear calcific density in the soft tissues along the lateral aspect of the midfoot. This may represent a small avulsion fracture although the age of this injury is indeterminate. There does not seem to be any significant soft tissue edema in this area and this finding could be long-standing in nature. Clinical follow-up is recommended. There is no fracture, dislocation or acute bony abnormality of the ankle joint. The ankle mortise is not widened and the talar dome is smooth. The soft tissues are unremarkable. IMPRESSION: 1. The small curvilinear calcific density along the lateral aspect of the midfoot is of uncertain etiology. This may represent an avulsion fracture but the age of this injury is indeterminate. Clinical follow-up is recommended. 2. There is no acute bony abnormality noted otherwise. Dictated by: Dictated on workstation # [id number]
--- NOTE | 2020-10-16 06:22 | Diagnostic Imaging Report ---
EXAMINATION: Left shoulder at 3:53 AM INDICATION: Injury, shoulder pain 3 views were obtained. There are no prior studies available for comparison. There is a slightly comminuted slightly impacted fracture involving the surgical neck of the humerus and the humeral head. The glenohumeral and the acromioclavicular joints are fairly well-maintained. The soft tissues are unremarkable. IMPRESSION: 1. There is a slightly comminuted and slightly displaced fracture involving the surgical neck of the humerus and the humeral head. There is no acute bony abnormality noted otherwise. 2. If further evaluation of the extent of the injury to the humeral head is desired, then CT would be recommended. Dictated by: Dictated on workstation # [id number]
--- NOTE | 2020-10-16 06:27 | Diagnostic Imaging Report ---
EXAMINATION: Left foot at 3:56 AM INDICATION: Injury, foot pain 3 views were obtained. There are no prior studies available for comparison. There is no fracture, dislocation or acute bony abnormality evident. The Lisfranc joint seems well maintained. There does not appear to be any significant degenerative change involving the foot and there is no sign of a calcaneal spur. The soft tissues are unremarkable. IMPRESSION: There is no evidence for an acute bony abnormality. Dictated by: Dictated on workstation # [id number]
== END 2020-10-16 05:35 | disposition home or self-care (01) ==
LOC: EDUNIT# 03:48 → ER FS 03:51
DX: S42.212A Unspecified displaced fracture of surgical neck of left humerus, initial encounter for closed fracture (principal); S93.402A Sprain of unspecified ligament of left ankle, initial encounter; S93.602A Unspecified sprain of left foot, initial encounter; Z79.82 Long term (current) use of aspirin; W18.30XA Fall on same level, unspecified, initial encounter
CPT/HCPCS: 73030; 73610; 73630; 96372

== ENCOUNTER 2021-11-21 14:22 | Emergency (ER) | payer MEDICARE ==
[~2021-11-21] VITALS: Ht 162.6 cm; Wt 57.2 kg
[~2021-11-21 14:22] MED LIST changes: +ACHD5005 PO; -ASPI-789 PO; +ASPI1TAB23 PO
[2021-11-21] MEDS ORDERED: NS IV 1000 ML 1,000 ML IV SCH (14:45)
[2021-11-21] MEDS ORDERED: diphenhydrAMINE 50 MG/ML INJ (BENADRYL) IVP ONE (14:45)
[2021-11-21] MEDS ORDERED: PROCHLORPERAZINE 10 MG/2ML INJ (COMPAZINE) IV ONE (14:45)
--- NOTE | 2021-11-21 14:46 | ED GI ---
General Chief Complaint: Abdominal/GI Problems Stated Complaint: VOMITING Source of Information: Patient Exam Limitations: No Limitations History of Present Illness Date Seen by Provider: Nov 21, 2021 Time Seen by Provider: 14:32 Initial Comments 51-year-old female presents to the emergency department today for nausea and vomiting. She has cyclic vomiting syndrome and feels like this is likely recurrence. She had a GI illness with fevers about 2 to 3 weeks ago. She seemingly had recovered and then over the last couple of days has had nausea and vomiting she denies any fevers or chills. She has diffuse abdominal cramping which she typically has with these kinds of episodes. She has seen GI specialist in [place] for similar instances in the past. No diarrhea. No sick contacts. Allergies and Home Medications Allergies Coded Allergies: Sulfa (Sulfonamide Antibiotics) (Unverified Allergy, Unknown, 04/15/18) butorphanol (Unverified Allergy, Unknown, 04/15/18) codeine (Unverified Allergy, Unknown, 04/15/18) Patient Home Medication List Home Medication List Reviewed: Yes Amitriptyline HCl (Amitriptyline HCl) 50 Mg Tablet, 25 MG PO HS, (Reported) Entered as Reported by: ANTONIO BALTAZAR on 08/14/18 1645 Aspirin/Acetaminophen/Caffeine (Excedrin Migraine Caplet) 1 Each Tablet, 2 TAB PO Q6-8HR PRN for MIGRAINE, (Reported) Entered as Reported by: ANTONIO BALTAZAR on 08/14/18 1609 Buprenorphine (Buprenorphine) 1 Each Patch.tdwk, (Reported) Entered as Reported by: TONI FARLEY on 04/15/18 0254 Buprenorphine (Butrans) 1 Each Patch.tdwk, 15 MCG TD Fr, (Reported) Entered as Reported by: ANTONIO BALTAZAR on 08/14/18 1637 Estradiol (Estrace Tablet) 1 Mg Tablet, 1 MG PO DAILY, (Reported) Entered as Reported by: ANTONIO BALTAZAR on 08/14/18 1609 Famotidine (Acid Legislators (FAMOTIDINE)) 20 Mg Tablet, 20 MG PO BID, (Reported) Entered as Reported by: ANTONIO BALTAZAR on 08/14/18 1609 Hydrocodone/Acetaminophen (Hydrocodone-Acetamin 5-325 mg) 1 Each Tablet, 1 TAB PO Q6H PRN for PAIN-SEVERE (8-10) Prescribed by: ISABELLA SEGAL on 10/16/20 0521 Hyoscyamine Sulfate (Levsin-Sl) 0.125 Mg Tab.subl, 0.125 MG SL Q4H Prescribed by: VERONICA RAPHAEL on 08/09/201852 Lamotrigine (Lamotrigine) 25 Mg Tablet, (Reported) Entered as Reported by: TONI FARLEY on 04/15/18 025 Lamotrigine (Lamotrigine) 150 Mg Tablet, (Reported) Entered as Reported by: TONI FARLEY on 04/15/18 025 Levocarnitine (l-Carnitine) 500 Mg Tablet, 500 MG PO DAILY, (Reported) Entered as Reported by: ANTONIO BALTAZAR on 08/14/18 160 Levothyroxine Sodium (Levothyroxine Sodium) 175 Mcg Tablet, 175 MCG PO DAILY, (Reported) Entered as Reported by: ANTONIO BALTAZAR on 08/14/18 160 Mirtazapine (Mirtazapine) 30 Mg Tablet, (Reported) Entered as Reported by: TONI FARLEY on 04/15/18253 Ondansetron (Ondansetron Odt) 4 Mg Tab.rapdis, 4 MG PO TID Prescribed by: VERONICA RAPHAEL on 08/09/201852 Pregabalin (Lyrica) 100 Mg Capsule, 100 MG PO BID, (Reported) Entered as Reported by: ANTONIO BALTAZAR on 08/14/18 160 Ubidecarenone/Vit E Acetate (Co Q-10 100 mg Softgel) 1 Each Capsule, 100 MG PO HS, (Reported) Entered as Reported by: ANTONIO BALTAZAR on 08/14/18 160 Vitamin B Complex (Vitamin B Complex) 1 Each Capsule, 1 CAP PO HS, (Reported) Entered as Reported by: ANTONIO BALTAZAR on 08/14/18 1637 Review of Systems Review of Systems Constitutional: no symptoms reported EENTM: No Symptoms Reported Respiratory: No Symptoms Reported Cardiovascular: No Symptoms Reported Gastrointestinal: Abdominal Pain, Nausea, Vomiting Genitourinary: No Symptoms Reported Musculoskeletal: no symptoms reported Skin: no symptoms reported Psychiatric/Neurological: No Symptoms Reported Endocrine: No Symptoms Reported Hematologic/Lymphatic: No Symptoms Reported Past Uliybrc-Ivjpos-Pddpju Hx Patient Social History Tobacco Use?: No Use of E-Cig and/or Vaping dev: No Substance use?: No Alcohol Use?: No Immunizations Up To Date Tetanus Booster (TDap): Less than 5yrs Seasonal Allergies Seasonal Allergies: No Past Medical History Surgeries: Yes (Bilateral carpal tunnel, Nevro HF10 Spinal Cord Stimulator, Arthroscopy Rt) Section, Gallbladder, Hysterectomy, Tonsillectomy Respiratory: No Cardiac: No Neurological: Yes 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 Sexually Transmitted Disease: No HIV/AIDS: No Genitourinary: Yes Kidney Infection, Bladder Infection Gastrointestinal: No Musculoskeletal: Yes Osteoporosis, Fibromyalgia, Chronic Back Pain Endocrine: No HEENT: No Cancer: Yes Thyroid Did You Recieve Any Treatments: Yes What Type of Treatment Did You: Other Psychosocial: Yes Bipolar Integumentary: No Blood Disorders: No Family Medical History Reviewed Nursing Family Hx Cardiovascular disease 19 FATHER No Pertinent Family Hx Physical Exam Vital Signs Vital Signs - First Documented 11/21/21 14:28 Temp 36.1 Pulse 98 Resp 18 B/P (MAP) 135/96 (109) Pulse Ox 99 O2 Delivery Room Air Capillary Refill : Height/Weight/BMI Height: 5'4.00" Weight: 100lbs. oz. 45.360125ll; 20.00 BMI Method:Stated General Appearance: WD/WN, no apparent distress HEENT: normal ENT inspection, pharynx normal Neck: non-tender, full range of motion, supple, normal inspection Respiratory: chest non-tender, lungs clear, normal breath sounds, no respiratory distress, no accessory muscle use Cardiovascular: regular rate, rhythm, no edema, no gallop, no JVD, no murmur Gastrointestinal: soft, no organomegaly, no pulsatile mass, tenderness (Diffuse tenderness to palpation about the abdomen. Voluntary guarding.) Extremities: non-tender, normal inspection, no pedal edema Back: normal inspection, no CVA tenderness, no vertebral tenderness Neurologic/Psychiatric: alert, normal mood/affect, oriented x 3 Skin: normal color, warm/dry Lymphatic: no adenopathy Progress/Results/Core Measures Results/Orders My Orders Orders - GERARD SERRATO DO Ns Iv 1000 Ml (Sodium Chloride 0.9%) (11/21/21 14:45) Prochlorperazine Injection (Compazine In (11/21/21 14:45) Diphenhydramine Injection (Benadryl Inje (11/21/21 14:45) Ondansetron Injection (Zofran Injectio (11/21/21 15:30) Medications Given in ED Current Medications Medications Dose Ordered Sig/Davidson Route Start Time Stop Time Status Last Admin Dose Admin Diphenhydramine HCl 50 mg ONCE ONCE IVP 11/21/21 14:45 11/21/21 14:46 DC 11/21/21 14:53 50 MG Prochlorperazine Edisylate 10 mg ONCE ONCE IV 11/21/21 14:45 11/21/21 14:46 DC 11/21/21 14:53 10 MG Vital Signs/I&O 11/21/21 14:28 Temp 36.1 Pulse 98 Resp 18 B/P (MAP) 135/96 (109) Pulse Ox 99 O2 Delivery Room Air Departure Communication (Admissions) Patient is hemodynamically stable. Given Compazine, Benadryl and her abdominal cramping has completely resolved. Her nausea is significantly improved. She tolerated a glass of water here without any vomiting. She is feeling better and request to go home. She is discharged in stable condition peer Impression Primary Impression: Cyclic vomiting syndrome Disposition: HOME, SELF-CARE Condition: Stable Departure-Patient Inst. Referrals: JOSE MENDOZA MD (PCP) Primary Care Physician Patient Instructions: Nausea and Vomiting, Adult (DC) Add. Discharge Instructions: Continue to use your home medications for nausea and vomiting as previously prescribed. Increase your fluids at home and rest as needed. Follow-up with your GI specialist at your earliest convenience. Return to the emergency department for any severe concerns. All discharge instructions reviewed with patient and/or family. Voiced understanding. GERARD SERRATO DO Nov 21, 2021 14:45
[2021-11-21] MEDS ORDERED: ONDANSETRON 4 MG/2 ML (SDV) Z0FRAN IVP PRN (15:30)
[2021-11-21 15:55] VITALS: BP 105/71
== END 2021-11-21 15:55 | disposition home or self-care (01) ==
LOC: EDUNIT# 14:22 → ER FS 14:24
DX: R11.15 Cyclical vomiting syndrome unrelated to migraine (principal)
CPT/HCPCS: 99284

== ENCOUNTER 2021-12-23 17:53 | Emergency (ER) | payer MEDICARE ==
[~2021-12-23] VITALS: Ht 162.6 cm; Wt 57.2 kg
--- NOTE | 2021-12-23 18:01 | ED Chest Pain ---
General Stated Complaint: CHEST PAIN; DIZZINESS; NAUSEA; LT ARM COOL History of Present Illness Date Seen by Provider: Dec 23, 2021 Time Seen by Provider: 18:00 Initial Comments 51-year-old female with PMH of COPD/fibromyalgia/hypothyroidism/cyclical vomiting syndrome/migraines, is here with complaints of chest pain which has been going on for 1 month occasionally the chest pain radiates to left arm and feels a little cool and tingly at the time. In the ER patient has nonradiating left-sided chest pain which she rates as a 5/10. Denies nausea and vomiting. 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 Truong, and is scheduled for a stress test and echo in December. Denies palpitations, fever, cough, urinary symptoms, abdominal pain, nausea and vomiting, dizziness. Allergies and Home Medications Allergies Coded Allergies: Sulfa (Sulfonamide Antibiotics) (Unverified Allergy, Unknown, 04/15/18) butorphanol (Unverified Allergy, Unknown, 04/15/18) codeine (Unverified Allergy, Unknown, 04/15/18) Patient Home Medication List Home Medication List Reviewed: Yes Amitriptyline HCl (Amitriptyline HCl) 50 Mg Tablet, 25 MG PO HS, (Reported) Entered as Reported by: ANTONIO BALTAZAR on 08/14/18 1645 Aspirin/Acetaminophen/Caffeine (Excedrin Migraine Caplet) 1 Each Tablet, 2 TAB PO Q6-8HR PRN for MIGRAINE, (Reported) Entered as Reported by: ANTONIO BALTAZAR on 08/14/18 1609 Buprenorphine (Buprenorphine) 1 Each Patch.tdwk, (Reported) Entered as Reported by: TONI FARLEY on 04/15/18 0254 Buprenorphine (Butrans) 1 Each Patch.tdwk, 15 MCG TD Fr, (Reported) Entered as Reported by: ANTONIO BALTAZAR on 08/14/18 1637 Estradiol (Estrace Tablet) 1 Mg Tablet, 1 MG PO DAILY, (Reported) Entered as Reported by: ANTONIO BALTAZAR on 08/14/18 1609 Famotidine (Acid Flattening Machine Operator (FAMOTIDINE)) 20 Mg Tablet, 20 MG PO BID, (Reported) Entered as Reported by: ANTONIO BALTAZAR on 08/14/18 1609 Hydrocodone/Acetaminophen (Hydrocodone-Acetamin 5-325 mg) 1 Each Tablet, 1 TAB PO Q6H PRN for PAIN-SEVERE (8-10) Prescribed by: ISABELLA SEGAL on 10/16/20 0521 Hyoscyamine Sulfate (Levsin-Sl) 0.125 Mg Tab.subl, 0.125 MG SL Q4H Prescribed by: VERONICA RAPHAEL on 08/09/201852 Lamotrigine (Lamotrigine) 25 Mg Tablet, (Reported) Entered as Reported by: TONI FARLEY on 04/15/18253 Lamotrigine (Lamotrigine) 150 Mg Tablet, (Reported) Entered as Reported by: TONI FARLEY on 04/15/18253 Levocarnitine (l-Carnitine) 500 Mg Tablet, 500 MG PO DAILY, (Reported) Entered as Reported by: ANTONIO BALTAZAR on 08/14/181608 Levothyroxine Sodium (Levothyroxine Sodium) 175 Mcg Tablet, 175 MCG PO DAILY, (Reported) Entered as Reported by: ANTONIO BALTAZAR on 08/14/181608 Mirtazapine (Mirtazapine) 30 Mg Tablet, (Reported) Entered as Reported by: TONI FARLEY on 04/15/18253 Ondansetron (Ondansetron Odt) 4 Mg Tab.rapdis, 4 MG PO TID Prescribed by: VERONICA RAPHAEL on 08/09/201852 Pregabalin (Lyrica) 100 Mg Capsule, 100 MG PO BID, (Reported) Entered as Reported by: ANTONIO BALTAZAR on 08/14/18 160 Ubidecarenone/Vit E Acetate (Co Q-10 100 mg Softgel) 1 Each Capsule, 100 MG PO HS, (Reported) Entered as Reported by: ANTONIO BALTAZAR on 08/14/18 160 Vitamin B Complex (Vitamin B Complex) 1 Each Capsule, 1 CAP PO HS, (Reported) Entered as Reported by: ANTONIO BALTAZAR on 08/14/18 163 Review of Systems Review of Systems Constitutional: no symptoms reported EENTM: No Symptoms Reported Respiratory: No Symptoms Reported Cardiovascular: Chest Pain Gastrointestinal: No Symptoms Reported Genitourinary: No Symptoms Reported Musculoskeletal: no symptoms reported Skin: no symptoms reported Psychiatric/Neurological: No Symptoms Reported Endocrine: No Symptoms Reported Hematologic/Lymphatic: No Symptoms Reported Past Nylohtd-Lqmssf-Pxtcvd Hx Immunizations Up To Date Tetanus Booster (TDap): Less than 5yrs Seasonal Allergies Seasonal Allergies: No Past Medical History Surgery/Hospitalization HX: cholecystectomy, hysterectomy, cyclic vomiting syndrome, fibromyalgia, degenerative disc disease, emphysema Surgeries: Yes (Bilateral carpal tunnel, Nevro HF10 Spinal Cord Stimulator, Arthroscopy Rt) Section, Gallbladder, Hysterectomy, Tonsillectomy Respiratory: No Cardiac: No Neurological: Yes 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 Sexually Transmitted Disease: No HIV/AIDS: No Genitourinary: Yes Kidney Infection, Bladder Infection Gastrointestinal: No Musculoskeletal: Yes Osteoporosis, Fibromyalgia, Chronic Back Pain Endocrine: No HEENT: No Cancer: Yes Thyroid Did You Recieve Any Treatments: Yes What Type of Treatment Did You: Other Psychosocial: Yes Bipolar Integumentary: No Blood Disorders: No Family Medical History Cardiovascular disease 19 FATHER No Pertinent Family Hx Physical Exam Vital Signs Vital Signs - First Documented 12/23/21 17:58 Temp 36.5 Pulse 87 Resp 14 B/P (MAP) 118/72 (87) Pulse Ox 96 O2 Delivery Room Air Capillary Refill : Height, Weight, BMI Height: 5'4.00" Weight: 100lbs. oz. 45.464850lf; 21.00 BMI Method:Stated General Appearance: No Apparent Distress, WD/WN, Anxious, Thin HEENT: PERRL/EOMI Neck: Normal Inspection Respiratory: Lungs Clear, Normal Breath Sounds Cardiovascular: Regular Rate, Rhythm, No Edema, No Murmur, Other (no point tenderness of chest wall) Gastrointestinal: Normal Bowel Sounds, Non Tender, Soft Neurologic/Psychiatric: Alert, Oriented x3 Skin: Normal Color Progress/Results/Core Measures Results/Orders Lab Results Laboratory Tests Test 12/23/21 18:05 12/23/21 18:20 12/23/21 19:55 Range/Units White Blood Count 10.8 4.3-11.0 10^3/uL Red Blood Count 3.84 3.80-5.11 10^6/uL Hemoglobin 12.8 11.5-16.0 g/dL Hematocrit 38 35-52 % Mean Corpuscular Volume 98 80-99 fL Mean Corpuscular Hemoglobin 33 25-34 pg Mean Corpuscular Hemoglobin Concent 34 32-36 g/dL Red Cell Distribution Width 13.8 10.0-14.5 % Platelet Count 199 130-400 10^3/uL Mean Platelet Volume 11.3 9.0-12.2 fL Immature Granulocyte % (Auto) 0 % Neutrophils (%) (Auto) 60 42-75 % Lymphocytes (%) (Auto) 31 12-44 % Monocytes (%) (Auto) 6 0-12 % Eosinophils (%) (Auto) 2 0-10 % Basophils (%) (Auto) 1 0-10 % Neutrophils # (Auto) 6.4 1.8-7.8 10^3/uL Lymphocytes # (Auto) 3.4 1.0-4.0 10^3/uL Monocytes # (Auto) 0.7 0.0-1.0 10^3/uL Eosinophils # (Auto) 0.2 0.0-0.3 10^3/uL Basophils # (Auto) 0.1 0.0-0.1 10^3/uL Immature Granulocyte # (Auto) 0.0 0.0-0.1 10^3/uL Prothrombin Time 13.5 12.2-14.7 SEC INR Comment 1.0 0.8-1.4 Activated Partial Thromboplast Time 42 H 24-35 SEC D-Dimer 0.27 0.00-0.49 UG/ML Sodium Level 138 135-145 MMOL/L Potassium Level 3.5 L 3.6-5.0 MMOL/L Chloride Level 101 98-107 MMOL/L Carbon Dioxide Level 23 21-32 MMOL/L Anion Gap 14 5-14 MMOL/L Blood Urea Nitrogen 9 7-18 MG/DL Creatinine 0.59 L 0.60-1.30 MG/DL Estimat Glomerular Filtration Rate 109 BUN/Creatinine Ratio 15 Glucose Level 169 H 70-105 MG/DL Calcium Level 9.3 8.5-10.1 MG/DL Corrected Calcium 9.1 8.5-10.1 MG/DL Magnesium Level 1.7 1.6-2.4 MG/DL Total Bilirubin 0.4 0.1-1.0 MG/DL Aspartate Amino Transf (AST/SGOT) 13 5-34 U/L Alanine Aminotransferase (ALT/SGPT) 9 0-55 U/L Alkaline Phosphatase 54 40-136 U/L Troponin I < 0.30 <0.30 NG/ML Pro-B-Type Natriuretic Peptide 97.6 <125.0 PG/ML Total Protein 6.5 6.4-8.2 GM/DL Albumin 4.3 3.2-4.5 GM/DL Urine Color YELLOW Urine Clarity CLEAR Urine pH 5.5 5-9 Urine Specific [place] 1.025 H 1.016-1.022 Urine Protein NEGATIVE NEGATIVE Urine Glucose (UA) NEGATIVE NEGATIVE Urine Ketones NEGATIVE NEGATIVE Urine Nitrite NEGATIVE NEGATIVE Urine Bilirubin NEGATIVE NEGATIVE Urine Urobilinogen 0.2 < = 1.0 MG/DL Urine Leukocyte Esterase NEGATIVE NEGATIVE Urine RBC (Auto) NEGATIVE NEGATIVE Urine RBC 5-10 H /HPF Urine WBC NONE /HPF Urine Squamous Epithelial Cells 25-50 H /HPF Urine Crystals NONE /LPF Urine Bacteria FEW H /HPF Urine Casts NONE /LPF Urine Mucus NEGATIVE /LPF Urine Yeast FEW H /HPF Urine Culture Indicated NO Urine Opiates Screen POSITIVE H NEGATIVE Urine Oxycodone Screen NEGATIVE NEGATIVE Urine Methadone Screen NEGATIVE NEGATIVE Urine Propoxyphene Screen NEGATIVE NEGATIVE Urine Barbiturates Screen NEGATIVE NEGATIVE Ur Tricyclic Antidepressants Screen NEGATIVE NEGATIVE Urine Phencyclidine Screen NEGATIVE NEGATIVE Urine Amphetamines Screen NEGATIVE NEGATIVE Urine Methamphetamines Screen NEGATIVE NEGATIVE Urine Benzodiazepines Screen NEGATIVE NEGATIVE Urine Cocaine Screen NEGATIVE NEGATIVE Urine Cannabinoids Screen POSITIVE H NEGATIVE My Orders Orders - DARLINE DAILEY MD Cbc With Automated Diff (12/23/21 18:02) Magnesium (12/23/21 18:02) Chest 1 View Ap/Pa Only (12/23/21 18:02) Ekg Tracing (12/23/21 18:02) Comprehensive Metabolic Panel (12/23/21 18:02) Protime With Inr (12/23/21 18:02) Partial Thromboplastin Time (12/23/21 18:02) Monitor-Rhythm Ecg Trace Only (12/23/21 18:02) Aspirin Chewable Tablet (Baby Aspirin Ch (12/23/21 18:15) Ed Iv/Invasive Line Start (12/23/21 18:02) Fibrin Degradation Products (12/23/21 18:02) Troponin I Fs (12/23/21 18:02) Probnp Fs (12/23/21 18:02) Drug Screen Stat (Urine) (12/23/21 18:02) Ua Culture If Indicated (12/23/21 18:02) Troponin I Fs (12/23/21 19:04) Ekg Tracing (12/23/21 19:04) Antacid Suspension (Mylanta Suspension (12/23/21 19:30) Famotidine Injection (Pepcid Injection) (12/23/21 19:30) Ketorolac Injection (Toradol Injection) (12/23/21 20:00) Medications Given in ED Current Medications Medications Dose Ordered Sig/Davidson Route Start Time Stop Time Status Last Admin Dose Admin Al Hydrox/Mg Hydrox/Simethicone 30 ml ONCE ONCE PO 12/23/21 19:30 12/23/21 19:31 DC 12/23/21 19:49 30 ML Aspirin 324 mg ONCE ONCE PO 12/23/21 18:15 12/23/21 18:16 DC 12/23/21 18:34 324 MG Famotidine 20 mg ONCE ONCE IVP 12/23/21 19:30 12/23/21 19:31 DC 12/23/21 19:49 20 MG Ketorolac Tromethamine 15 mg ONCE ONCE IVP 12/23/21 20:00 12/23/21 20:01 DC 12/23/21 20:00 15 MG Vital Signs/I&O 12/23/21 17:58 Temp 36.5 Pulse 87 Resp 14 B/P (MAP) 118/72 (87) Pulse Ox 96 O2 Delivery Room Air Progress Progress Note : Progress Note 1. ACS RULE OUT: MARIJUANA & OPIOID ABUSE:EXACERBATION OF FIBROMYALGIA: - CXR: no acute findings - Labs unremarkable - UDS is positive for opioids and marijuana - Troponin/ EKG x 2: non-ischemic - ASA 324mg STAT - Pepcid 20mg iv / Maalox 30mg STAT -Advised to stop drug abuse -Chest pain likely triggered by drug use and fibromyalgia exacerbation -Patient has any stress test scheduled for January 10 and an echo for January 02. Advised patient to keep these appointments. -Follow-up with PCP and cardiology within 3 to 7 days. -The patient was seen in the ED, and treated appropriately to presentation at a specific point in time. Patient is informed that there is a possibility that disease and illness can evolve and change in acuity rapidly or slowly after patient is discharged from the ER. Precautionary advice given to the patient for immediate return to ER if symptoms worsen or do not resolve, and to seek emergency care sooner rather than later. Pt also advised on the importance of PCP follow up and compliance with management and follow up plan with PCP and/or specialist, as this is part of the management plan. Pt verbally expressed understanding. Initial ECG Impression Date: Dec 23, 2021 Initial ECG Impression Time: 17:58 Initial ECG Rate: 76 Initial ECG Rhythm: Normal Sinus Initial ECG Intervals: Normal Initial ECG Impression: Normal Initial ECG Comparisson: No Previous ECG Available EKG : EKG Time: 19:11 Rate: 66 Rhythm: Normal Sinus Intervals: Normal ECG Comparisson: Unchanged ECG Impression: Normal Diagnostic Imaging Diagonstic Imaging: Xray Plain Films/CT/US/NM/MRI: chest Comments [facility] [place], [place] NAME: JUVENTINO BERNABE MED REC#: [id number] PT STATUS: REG ER : 1970 PHYSICIAN: DARLINE DAILEY MD ADMIT DATE: 12/23/21/ER FS Draft Date of Exam:12/23/21 CHEST 1 VIEW AP/PA ONLY INDICATION: Chest pain COMPARISON: 08/18/2018. FINDINGS: Single frontal view of the chest demonstrates normal heart size and pulmonary vascularity. The lungs are well aerated and clear. No large pleural effusion or pneumothorax is seen. The visualized osseous structures show no acute abnormalities. Neurostimulator wires are present midline. Right internal jugular Port-A-Cath is also seen with tip in the right atrium. IMPRESSION: No acute cardiopulmonary process. Dictated on workstation # [id number] Dict: 12/23/211814 Trans: 12/23/211815 [facility] [id number] Interpreted by: ESSIE MITCHELL MD Electronically signed by: Departure Impression Primary Impression: Ruled out for myocardial infarction Additional Impressions: Marijuana abuse Opioid abuse Fibromyalgia Disposition: 01 HOME, SELF-CARE Condition: Stable Departure-Patient Inst. Referrals: JOSE MENDOZA MD (PCP) Primary Care Physician Patient Instructions: Opioid Use Disorder, Marijuana Use and Addiction (DC), Cannabis Hyperemesis Syndrome, Chest Pain That Is Not Caused by the Heart (DC), Fibromyalgia Add. Discharge Instructions: -Advised to stop drug abuse -Patient has any stress test scheduled for January 10 and an echo for January 02. Advised patient to keep these appointments. -Follow-up with PCP and cardiology within 3 to 7 days. DARLINE DAILEY MD Dec 23, 2021 18:01
[2021-12-23 18:12] LABS: BASOPHILS # (AUTO) 0.1 10^3/uL (0.0-0.1); BASOPHILS % (AUTO) 1 % (0-10); EOSINOPHILS # (AUTO) 0.2 10^3/uL (0.0-0.3); EOSINOPHILS % (AUTO) 2 % (0-10); HEMATOCRIT 38 % (35-52); HEMOGLOBIN 12.8 g/dL (11.5-16.0); LYMPHOCYTES # (AUTO) 3.4 10^3/uL (1.0-4.0); LYMPHOCYTES % (AUTO) 31 % (12-44); MEAN CORPUSCULAR HEMOGLOBIN 33 pg (25-34); MEAN CORPUSCULAR HGB CONC 34 g/dL (32-36); MEAN CORPUSCULAR VOLUME 98 fL (80-99); MEAN PLATELET VOLUME 11.3 fL (9.0-12.2); MONOCYTES # (AUTO) 0.7 10^3/uL (0.0-1.0); MONOCYTES % (AUTO) 6 % (0-12); NEUTROPHILS # (AUTO) 6.4 10^3/uL (1.8-7.8); NEUTROPHILS % (AUTO) 60 % (42-75); PLATELET COUNT 199 10^3/uL (130-400); WHITE BLOOD COUNT 10.8 10^3/uL (4.3-11.0)
[2021-12-23] MEDS ORDERED: ASPIRIN 81 MG CHEW (CHILDREN'S ASA) PO ONE (18:15)
--- NOTE | 2021-12-23 18:16 | Diagnostic Imaging Report ---
INDICATION: Chest pain COMPARISON: 08/18/2018. FINDINGS: Single frontal view of the chest demonstrates normal heart size and pulmonary vascularity. The lungs are well aerated and clear. No large pleural effusion or pneumothorax is seen. The visualized osseous structures show no acute abnormalities. Neurostimulator wires are present midline. Right internal jugular Port-A-Cath is also seen with tip in the right atrium. IMPRESSION: No acute cardiopulmonary process. Dictated by: Dictated on workstation # [id number]
[2021-12-23 18:26] LABS: PROTHROMBIN TIME PATIENT 13.5 SEC (12.2-14.7)
[2021-12-23 18:27] LABS: BILIRUBIN,URINE NEGATIVE (NEGATIVE); CLARITY,URINE CLEAR; COLOR,URINE YELLOW; GLUCOSE, URINE (UA) NEGATIVE (NEGATIVE); KETONES,URINE NEGATIVE (NEGATIVE); LEUKOCYTE ESTERASE ,URINE NEGATIVE (NEGATIVE); NITRITE,URINE NEGATIVE (NEGATIVE); PH,URINE 5.5 (5-9); PROTEIN,URINE NEGATIVE (NEGATIVE)
[2021-12-23 18:30] LABS: BACTERIA,URINE FEW /HPF; SQUAMOUS EPITHELIAL CELL,UR 25-50 /HPF; YEAST,URINE FEW /HPF
[2021-12-23 18:32] LABS: ALBUMIN 4.3 GM/DL (3.2-4.5); BILIRUBIN,TOTAL 0.4 MG/DL (0.1-1.0); CALCIUM 9.3 MG/DL (8.5-10.1); CREATININE SERUM 0.59 MG/DL (0.60-1.30); MAGNESIUM 1.7 MG/DL (1.6-2.4); POTASSIUM 3.5 MMOL/L (3.6-5.0); TOTAL PROTEIN 6.5 GM/DL (6.4-8.2)
[2021-12-23 18:37] LABS: AMPHETAMINE SCREEN, URINE NEGATIVE (NEGATIVE); BARBITURATE SCREEN URINE NEGATIVE (NEGATIVE); BENZODIAZEPINES SCREEN URINE NEGATIVE (NEGATIVE); CANNABINOID SCREEN, URINE POSITIVE (NEGATIVE); COCAINE SCREEN URINE NEGATIVE (NEGATIVE); METHADONE STAT NEGATIVE (NEGATIVE); OPIATE SCREEN URINE POSITIVE (NEGATIVE); OXYCODONE STAT NEGATIVE (NEGATIVE); PROPOXYPHENE STAT NEGATIVE (NEGATIVE); TRICYCLIC ANTIDEPRESSANTS SCRE NEGATIVE (NEGATIVE)
[2021-12-23] MEDS ORDERED: ANTACID SUSP 30 ML UDC (MYLANTA) PO ONE (19:30)
[2021-12-23] MEDS ORDERED: FAMOTIDINE 20MG/2ML IV (PEPCID) IVP ONE (19:30)
[2021-12-23] MEDS ORDERED: KETOROLAC 30 MG/ML VIAL IVP ONE (20:00)
[2021-12-23 20:13] VITALS: BP 107/67
== END 2021-12-23 20:14 | disposition home or self-care (01) ==
LOC: EDUNIT# 17:53 → ER FS 17:54
DX: M79.7 Fibromyalgia (principal); F12.10 Cannabis abuse, uncomplicated; F11.10 Opioid abuse, uncomplicated; Z28.310 Unvaccinated for COVID-19
CPT/HCPCS: 36415; 71045; 80053; 80306; 81000; 83735; 83880; 84484; 85025; 85379; 85610; 85730; 93005; 93041; 96374; 96375

== ENCOUNTER → 2022-01-02 | Outpatient (CLI) | payer MEDICARE | LOC: CARDFS 12:00 | PROVIDERS: ATTEND Internal Medicine Cardiovascular Disease | DX: I10 Essential (primary) hypertension (principal); I25.10 Atherosclerotic heart disease of native coronary artery without angina pectoris | CPT/HCPCS: 93306 ==

== ENCOUNTER → 2022-01-31 | Outpatient (CLI) | payer MEDICARE ==
[2022-01-31 11:37] VITALS: BP 149/91
--- NOTE | 2022-01-31 18:14 | Cardiology Stress Test Report ---
Stress Test Report Date of Procedure/Referring: Date of Procedure: Jan 31, 2022 PCP Gerri Connell MD Admitting Physician Admitting Physician: Attending Physician: Kylie Villareal Indications: CP Baseline Heart Rate: 72 Baseline Blood Pressure: Blood Pressure Systolic: 149 Blood Pressure Diastolic: 91 Baseline EKG: Baseline EKG: NSR Summary/Conclusion: Summary: In summary, the patient started exercising with a baseline heart rate, blood pressure and EKG mentioned above Patient was able to exercise for a total of 1.40 minutes on Vijay protocol, METs 3 Maximum heart rate 109 Maximum blood pressure 128/90 Stress EKG, Minimal nondiagnostic changes Recovery EKG , Return to baseline Conclusion: 1. Poor exercise tolerance for a total of 1.40 minutes on Vijay protocol, 3 METs, achieving 64 percent of maximum expected heart rate 2. Minimal nondiagnostic EKG changes with exercise returned to baseline during recovery 3. No arrhythmia was noted SHAMIR PARKER MD Jan 31, 2022 18:14
== END ==
LOC: CARD 11:02
PROVIDERS: ATTEND Physician Assistant
DX: R07.9 Chest pain, unspecified (principal)
CPT/HCPCS: 93017

== ENCOUNTER 2022-03-31 19:41 | Emergency (ER) | payer MEDICARE, OTHER ==
[~2022-03-31] VITALS: Ht 162 cm; Wt 63.6 kg
[~2022-03-31 19:41] MED LIST changes: -LEVO500T83 PO; +[UNRECOGNIZED DRUG - CODE] PO
--- NOTE | 2022-03-31 19:51 | ED Upper Extremity ---
General Stated Complaint: RIGH SHOULDER PAIN History of Present Illness Date Seen by Provider: Mar 31, 2022 Time Seen by Provider: 19:46 Initial Comments 52-year-old female presents with chronic right shoulder pain. Patient reports that she been having issues for 4 months. That she has been seen at . She had a MRI March 19. That she has an appointment here soon the foot. The results. They are considered a spinal cord stimulator. Patient reports no new injuries. She reports that she did do a lot of lifting at work today and thinks she is flared up her shoulder. She does complain of some tingling down in her right arm which has been going on for at least 4 months and nothing new. Allergies and Home Medications Allergies Coded Allergies: Sulfa (Sulfonamide Antibiotics) (Unverified Allergy, Unknown, 04/15/18) butorphanol (Unverified Allergy, Unknown, 04/15/18) codeine (Unverified Allergy, Unknown, 04/15/18) Patient Home Medication List Home Medication List Reviewed: Yes Amitriptyline HCl (Amitriptyline HCl) 50 Mg Tablet, 25 MG PO HS, (Reported) Entered as Reported by: ANTONIO BALTAZAR on 08/14/18 1645 Aspirin/Acetaminophen/Caffeine (Excedrin Migraine Caplet) 1 Each Tablet, 2 TAB PO Q6-8HR PRN for MIGRAINE, (Reported) Entered as Reported by: ANTONIO BALTAZAR on 08/14/18 1609 Buprenorphine (Buprenorphine) 1 Each Patch.tdwk, (Reported) Entered as Reported by: TONI FARLEY on 04/15/18 0254 Buprenorphine (Butrans) 1 Each Patch.tdwk, 15 MCG TD Fr, (Reported) Entered as Reported by: ANTONIO BALTAZAR on 08/14/18 1637 Diclofenac Sodium (Diclofenac Sodium) 1 % Gel..gram., 100 GM TP TID Prescribed by: KANWAL DENTON on 03/31/222011 Estradiol (Estrace Tablet) 1 Mg Tablet, 1 MG PO DAILY, (Reported) Entered as Reported by: ANTONIO BALTAZAR on 08/14/18 1609 Famotidine (Acid Aviation Operations Specialist (FAMOTIDINE)) 20 Mg Tablet, 20 MG PO BID, (Reported) Entered as Reported by: ANTONIO BALTAZAR on 08/14/18 1609 Hydrocodone/Acetaminophen (Hydrocodone-Acetamin 5-325 mg) 1 Each Tablet, 1 TAB PO Q6H PRN for PAIN-SEVERE (8-10) Prescribed by: ISABELLA SEGAL on 10/16/20 0521 Hyoscyamine Sulfate (Levsin-Sl) 0.125 Mg Tab.subl, 0.125 MG SL Q4H Prescribed by: VERONICA RAPHAEL on 08/09/201852 Lamotrigine (Lamotrigine) 25 Mg Tablet, (Reported) Entered as Reported by: TONI FARLEY on 04/15/18253 Lamotrigine (Lamotrigine) 150 Mg Tablet, (Reported) Entered as Reported by: TONI FARLEY on 04/15/18253 Levocarnitine (l-Carnitine) 500 Mg Tablet, 500 MG PO DAILY, (Reported) Entered as Reported by: ANTONIO BALTAZAR on 08/14/18 160 Levothyroxine Sodium (Levothyroxine Sodium) 175 Mcg Tablet, 175 MCG PO DAILY, (Reported) Entered as Reported by: ANTONIO BALTAZAR on 08/14/181608 Mirtazapine (Mirtazapine) 30 Mg Tablet, (Reported) Entered as Reported by: TONI FARLEY on 04/15/18253 Naproxen (Naprosyn) 500 Mg Tablet, 500 MG PO BID PRN for PAIN-MILD (1-4) Prescribed by: KANWAL DENTON on 03/31/222011 Ondansetron (Ondansetron Odt) 4 Mg Tab.rapdis, 4 MG PO TID Prescribed by: VERONICA RAPHAEL on 08/09/201852 Pregabalin (Lyrica) 100 Mg Capsule, 100 MG PO BID, (Reported) Entered as Reported by: ANTONIO BALTAZAR on 08/14/18 160 Ubidecarenone/Vit E Acetate (Co Q-10 100 mg Softgel) 1 Each Capsule, 100 MG PO HS, (Reported) Entered as Reported by: ANTONIO BALTAZAR on 08/14/18 160 Vitamin B Complex (Vitamin B Complex) 1 Each Capsule, 1 CAP PO HS, (Reported) Entered as Reported by: ANTONIO BALTAZAR on 08/14/18 163 Review of Systems Constitutional: No chills, No fever EENTM: no symptoms reported Respiratory: no symptoms reported Cardiovascular: no symptoms reported Gastrointestinal: no symptoms reported Genitourinary: no symptoms reported Musculoskeletal: see HPI Psychiatric/Neurological: See HPI Past Xochoso-Aanwta-Myaosr Hx Immunizations Up To Date Tetanus Booster (TDap): Less than 5yrs Seasonal Allergies Seasonal Allergies: No Past Medical History Surgery/Hospitalization HX: cholecystectomy, hysterectomy, cyclic vomiting syndrome, fibromyalgia, degenerative disc disease, emphysema Surgeries: Yes (Bilateral carpal tunnel, Nevro HF10 Spinal Cord Stimulator, Arthroscopy Rt) Section, Gallbladder, Hysterectomy, Tonsillectomy Respiratory: No Cardiac: No Neurological: Yes 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 Sexually Transmitted Disease: No HIV/AIDS: No Genitourinary: Yes Kidney Infection, Bladder Infection Gastrointestinal: No Musculoskeletal: Yes Osteoporosis, Fibromyalgia, Chronic Back Pain Endocrine: No HEENT: No Cancer: Yes Thyroid Did You Recieve Any Treatments: Yes What Type of Treatment Did You: Other Psychosocial: Yes Bipolar Integumentary: No Blood Disorders: No Family Medical History No Pertinent Family Hx Physical Exam Vital Signs Vital Signs - First Documented 03/31/22 19:47 Temp 36.0 Pulse 91 Resp 20 B/P (MAP) 102/62 (75) Pulse Ox 100 O2 Delivery Room Air Capillary Refill : Height, Weight, BMI Height: 5'4.00" Weight: 100lbs. oz. [id number]; 21.00 BMI Method:Stated General Appearance: WD/WN, no apparent distress HEENT: normal ENT inspection, TMs normal Cardiovascular: normal peripheral pulses, regular rate, rhythm Respiratory: lungs clear, normal breath sounds Gastrointestinal: non tender, soft Shoulder: soft tissue tenderness Elbow/Forearm: no evidence of injury, normal ROM Wrist: Yes no evidence of injury, Yes normal ROM Hand: no evidence of injury, normal ROM Neurologic/Psychiatric: alert, normal mood/affect, oriented x 3 Skin: normal color, warm/dry Progress/Results/Core Measures Results/Orders My Orders Orders - KANWAL DENTON DO Ketorolac Injection (Toradol Injection) (03/31/22 20:00) Vital Signs/I&O 03/31/22 03/31/22 19:47 20:09 Temp 36.0 36.0 Pulse 91 Resp 20 B/P (MAP) 102/62 (75) Pulse Ox 100 O2 Delivery Room Air Departure Impression Primary Impression: Chronic right shoulder pain Additional Impression: Paresthesia of right arm Disposition: HOME, SELF-CARE Condition: Stable Departure-Patient Inst. Referrals: JOSE MENDOZA MD (PCP/Family) Primary Care Physician Add. Discharge Instructions: 4% topical lidocaine with menthol cream or gel. use as directed on package. Warm moist heat 3-4 times daily Scripts Diclofenac Sodium (Diclofenac Sodium) 1 % Gel..gram. 100 GM TP TID, #1 TUBE 0 Refills . Prov: KANWAL DENTON DO 03/31/22 Naproxen (Naprosyn) 500 Mg Tablet 500 MG PO BID PRN for PAIN-MILD (1-4), #30 TAB . Prov: KANWAL DENTON DO 03/31/22 KANWAL DENTON DO Mar 31, 2022 19:51
[2022-03-31] MEDS ORDERED: KETOROLAC 30 MG/ML VIAL IM STA (20:00)
[2022-03-31] MEDS ORDERED: NAPR-1071 PO ×2 (20:12→20:18)
[2022-03-31] MEDS ORDERED: DICL100G13 TP ×2 (20:12→20:18)
[2022-03-31 20:20] VITALS: BP 102/62
== END 2022-03-31 20:20 | disposition home or self-care (01) ==
LOC: EDUNIT# 19:41 → ER FS 19:45
DX: G89.29 Other chronic pain (principal); M25.511 Pain in right shoulder; R20.2 Paresthesia of skin
CPT/HCPCS: 99284

== ENCOUNTER 2022-06-07 13:29 | Emergency (ER) | payer OTHER ==
[~2022-06-07] VITALS: Ht 162 cm; Wt 62.0 kg
[~2022-06-07 13:29] MED LIST changes: +DICL100G13 TP; +NAPR-1071 PO
[2022-06-07] MEDS ORDERED: NS IV 1000 ML 1,000 ML IV STA (13:58)
[2022-06-07] MEDS ORDERED: DROPERIDOL 5 MG/2 ML (INAPSINE) ED ONLY! IV ONE (14:00)
[2022-06-07] MEDS ORDERED: diphenhydrAMINE 50 MG/ML INJ (BENADRYL) IVP ONE (14:00)
[2022-06-07] MEDS ORDERED: ACETAMINOPHEN 500 MG TAB (TYLENOL) PO ONE (14:00)
--- NOTE | 2022-06-07 14:00 | ED GI ---
General Chief Complaint: Abdominal/GI Problems Stated Complaint: DIARRHEA; VOMITING Source of Information: Patient, Old Records Exam Limitations: No Limitations History of Present Illness Date Seen by Provider: Jun 07, 2022 Time Seen by Provider: 13:30 Initial Comments 52-year-old female with past medical history most notable for cyclical vomiting syndrome as well as fibromyalgia coming in as referral from clinic due to nausea with nonbloody diarrhea. Started yesterday, feels somewhat similar to her typical cyclical vomiting spells she states. Was tested at the clinic for flu and COVID which was negative. She states she does have chills but no fever. Otherwise denies any chest pain, shortness of breath, severe abdominal pain, weakness, numbness, rash, dysuria, new headache, vision changes, or any other concerns. Allergies and Home Medications Allergies Coded Allergies: Sulfa (Sulfonamide Antibiotics) (Unverified Allergy, Unknown, 04/15/18) butorphanol (Unverified Allergy, Unknown, 04/15/18) codeine (Unverified Allergy, Unknown, 04/15/18) Patient Home Medication List Home Medication List Reviewed: Yes Amitriptyline HCl (Amitriptyline HCl) 50 Mg Tablet, 25 MG PO HS, (Reported) Entered as Reported by: ANTONIO BALTAZAR on 08/14/18 1645 Aspirin/Acetaminophen/Caffeine (Excedrin Migraine Caplet) 1 Each Tablet, 2 TAB PO Q6-8HR PRN for MIGRAINE, (Reported) Entered as Reported by: ANTONIO BALTAZAR on 08/14/18 1609 Buprenorphine (Buprenorphine) 1 Each Patch.tdwk, (Reported) Entered as Reported by: TONI FARLEY on 04/15/18 0254 Buprenorphine (Butrans) 1 Each Patch.tdwk, 15 MCG TD Fr, (Reported) Entered as Reported by: ANTONIO BALTAZAR on 08/14/18 1637 Diclofenac Sodium (Diclofenac Sodium) 1 % Gel..gram., 100 GM TP TID Prescribed by: KANWAL DENTON on 03/31/222017 Estradiol (Estrace Tablet) 1 Mg Tablet, 1 MG PO DAILY, (Reported) Entered as Reported by: ANTONIO BALTAZAR on 08/14/18 1609 Famotidine (Acid Auto Self Service Station Attendant (FAMOTIDINE)) 20 Mg Tablet, 20 MG PO BID, (Reported) Entered as Reported by: ANTONIO BALTAZAR on 08/14/181608 Hydrocodone/Acetaminophen (Hydrocodone-Acetamin 5-325 mg) 1 Each Tablet, 1 TAB PO Q6H PRN for PAIN-SEVERE (8-10) Prescribed by: ISABELLA SEGAL on 10/16/20 0521 Hyoscyamine Sulfate (Levsin-Sl) 0.125 Mg Tab.subl, 0.125 MG SL Q4H Prescribed by: VERONICA RAPHAEL on 08/09/201852 Lamotrigine (Lamotrigine) 25 Mg Tablet, (Reported) Entered as Reported by: TONI FARLEY on 04/15/18253 Lamotrigine (Lamotrigine) 150 Mg Tablet, (Reported) Entered as Reported by: TONI FARLEY on 04/15/18253 Levocarnitine (l-Carnitine) 500 Mg Tablet, 500 MG PO DAILY, (Reported) Entered as Reported by: ANTONIO BALTAZAR on 08/14/181608 Levothyroxine Sodium (Levothyroxine Sodium) 175 Mcg Tablet, 175 MCG PO DAILY, (Reported) Entered as Reported by: ANTONIO BALTAZAR on 08/14/181608 Mirtazapine (Mirtazapine) 30 Mg Tablet, (Reported) Entered as Reported by: TONI FARLEY on 04/15/18253 Naproxen (Naprosyn) 500 Mg Tablet, 500 MG PO BID PRN for PAIN-MILD (1-4) Prescribed by: KANWAL DENTON on 03/31/222017 Ondansetron (Ondansetron Odt) 4 Mg Tab.rapdis, 4 MG PO TID Prescribed by: VERONICA RAPHAEL on 08/09/201852 Pregabalin (Lyrica) 100 Mg Capsule, 100 MG PO BID, (Reported) Entered as Reported by: ANTONIO BALTAZAR on 08/14/181608 Ubidecarenone/Vit E Acetate (Co Q-10 100 mg Softgel) 1 Each Capsule, 100 MG PO HS, (Reported) Entered as Reported by: ANTONIO BALTAZAR on 08/14/181608 Vitamin B Complex (Vitamin B Complex) 1 Each Capsule, 1 CAP PO HS, (Reported) Entered as Reported by: ANTONOI BALTAZAR on 08/14/18 8341 Review of Systems Review of Systems Constitutional: chills EENTM: No Symptoms Reported Respiratory: No Symptoms Reported Cardiovascular: No Symptoms Reported Gastrointestinal: See HPI Genitourinary: No Symptoms Reported Musculoskeletal: no symptoms reported Skin: no symptoms reported Psychiatric/Neurological: No Symptoms Reported Past Lbpwrpv-[id number]-Dcdesl Hx Patient Social History Substance use?: No Immunizations Up To Date Tetanus Booster (TDap): Less than 5yrs Seasonal Allergies Seasonal Allergies: No Past Medical History Surgery/Hospitalization HX: cholecystectomy, hysterectomy, cyclic vomiting syndrome, fibromyalgia, degenerative disc disease, emphysema Surgeries: Yes (Bilateral carpal tunnel, Nevro HF10 Spinal Cord Stimulator, Arthroscopy Rt) Section, Gallbladder, Hysterectomy, Tonsillectomy Respiratory: No Cardiac: No Neurological: 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 Sexually Transmitted Disease: No HIV/AIDS: No Genitourinary: Yes Kidney Infection, Bladder Infection Gastrointestinal: No Musculoskeletal: Yes Osteoporosis, Fibromyalgia, Chronic Back Pain Endocrine: No HEENT: No Cancer: Yes Thyroid Did You Recieve Any Treatments: Yes What Type of Treatment Did You: Other Psychosocial: Yes Bipolar Integumentary: No Blood Disorders: No Family Medical History Cardiovascular disease 19 FATHER No Pertinent Family Hx Physical Exam Vital Signs Vital Signs - First Documented 06/07/22 14:31 Temp 36.6 Pulse 118 Resp 18 B/P (MAP) 112/85 (94) Pulse Ox 98 O2 Delivery Room Air Capillary Refill : Height/Weight/BMI Height: 5'4.00" Weight: 100lbs. oz. 45.004804gd; 24.00 BMI Method:Stated General Appearance: WD/WN, no apparent distress HEENT: PERRL/EOMI, normal ENT inspection, pharynx normal Neck: non-tender, full range of motion, supple, normal inspection Respiratory: chest non-tender, lungs clear, normal breath sounds, no respiratory distress, no accessory muscle use Cardiovascular: regular rate, rhythm, no edema, no murmur Gastrointestinal: normal bowel sounds, non tender, soft; No distended, No guarding, No rebound Extremities: normal range of motion, non-tender, normal inspection, no pedal edema, no calf tenderness, normal capillary refill Back: normal inspection, no CVA tenderness Neurologic/Psychiatric: no motor/sensory deficits, alert, normal mood/affect Skin: normal color, warm/dry Progress/Results/Core Measures Results/Orders Lab Results Laboratory Tests Test 06/07/22 14:15 Range/Units White Blood Count 12.4 H 4.3-11.0 10^3/uL Red Blood Count 4.96 3.80-5.11 10^6/uL Hemoglobin 16.1 H 11.5-16.0 g/dL Hematocrit 48 35-52 % Mean Corpuscular Volume 96 80-99 fL Mean Corpuscular Hemoglobin 33 25-34 pg Mean Corpuscular Hemoglobin Concent 34 32-36 g/dL Red Cell Distribution Width 13.0 10.0-14.5 % Platelet Count 206 130-400 10^3/uL Mean Platelet Volume 12.4 H 9.0-12.2 fL Immature Granulocyte % (Auto) 0 % Neutrophils (%) (Auto) 65 42-75 % Lymphocytes (%) (Auto) 26 12-44 % Monocytes (%) (Auto) 8 0-12 % Eosinophils (%) (Auto) 1 0-10 % Basophils (%) (Auto) 0 0-10 % Neutrophils # (Auto) 8.0 H 1.8-7.8 10^3/uL Lymphocytes # (Auto) 3.2 1.0-4.0 10^3/uL Monocytes # (Auto) 0.9 0.0-1.0 10^3/uL Eosinophils # (Auto) 0.2 0.0-0.3 10^3/uL Basophils # (Auto) 0.1 0.0-0.1 10^3/uL Immature Granulocyte # (Auto) 0.0 0.0-0.1 10^3/uL Sodium Level 138 135-145 MMOL/L Potassium Level 3.6 3.6-5.0 MMOL/L Chloride Level 100 98-107 MMOL/L Carbon Dioxide Level 22 21-32 MMOL/L Anion Gap 16 H 5-14 MMOL/L Blood Urea Nitrogen 13 7-18 MG/DL Creatinine 0.59 L 0.60-1.30 MG/DL Estimat Glomerular Filtration Rate 108 BUN/Creatinine Ratio 22 Glucose Level 98 70-105 MG/DL Calcium Level 10.0 8.5-10.1 MG/DL Corrected Calcium 8.5-10.1 MG/DL Magnesium Level 1.9 1.6-2.4 MG/DL Total Bilirubin 0.4 0.1-1.0 MG/DL Aspartate Amino Transf (AST/SGOT) 15 5-34 U/L Alanine Aminotransferase (ALT/SGPT) 14 0-55 U/L Alkaline Phosphatase 68 40-136 U/L Total Protein 7.4 6.4-8.2 GM/DL Albumin 4.6 H 3.2-4.5 GM/DL Lipase 16 8-78 U/L My Orders Orders - MARGARITA MATHUR MD Cbc With Automated Diff (06/07/22 13:58) Comprehensive Metabolic Panel (06/07/22 13:58) Lipase (06/07/22 13:58) Magnesium (06/07/22 13:58) Ns Iv 1000 Ml (Sodium Chloride 0.9%) (06/07/22 13:58) Droperidol Inj (Ed Only) (Inapsine Inj ( (06/07/22 14:00) Diphenhydramine Injection (Benadryl Inje (06/07/22 14:00) Acetaminophen Tablet (Tylenol Tablet) (06/07/22 14:00) Medications Given in ED Current Medications Medications Dose Ordered Sig/Davidson Route Start Time Stop Time Status Last Admin Dose Admin Acetaminophen 1,000 mg ONCE ONCE PO 06/07/22 14:00 06/07/22 14:01 DC 06/07/22 14:19 1,000 MG Diphenhydramine HCl 12.5 mg ONCE ONCE IVP 06/07/22 14:00 06/07/22 14:01 DC 06/07/22 14:19 12.5 MG Droperidol 2.5 mg ONCE ONCE IV 06/07/22 14:00 06/07/22 14:01 DC 06/07/22 14:19 2.5 MG Vital Signs/I&O 06/07/22 14:31 Temp 36.6 Pulse 118 Resp 18 B/P (MAP) 112/85 (94) Pulse Ox 98 O2 Delivery Room Air Progress Progress Note : Progress Note 52-year-old female with above history coming in due to nausea and diarrhea. ABCs were intact and vitals were stable on presentation. Specifically she has a soft and nontender abdomen, and is nontoxic-appearing. Her port was accessed and basic labs were obtained and significant for mildly elevated white blood cell count which is nonspecific, essentially normal electrolytes, normal creatinine, normal LFTs, normal lipase. She was given a bolus of IV fluids as well as droperidol and Benadryl for nausea. She is feeling significantly better. She had a flu and COVID test earlier today which were negative. I believe she is otherwise stable for discharge with outpatient follow-up. She was sent home with strict return precautions Departure Impression Primary Impression: Nausea alone Additional Impression: Diarrhea Qualified Codes: R19.7 - Diarrhea, unspecified Disposition: HOME, SELF-CARE Condition: Stable Departure-Patient Inst. Decision time for Depature: 15:30 Referrals: JOSE MENDOZA MD (PCP) Primary Care Physician Patient Instructions: Nausea and Vomiting, Adult ED, Diarrhea, Adult ED Add. Discharge Instructions: You likely do have a virus causing your symptoms. This will pass with time. Your work up in the ER was reassuring. Take your nausea medicines at home as needed. Follow-up with your regular doctor if you are not improving. Work/School Note: Work Release Form Date Seen in the Emergency Department: Jun 07, 2022 Return to Work: Jun 09, 2022 Restrictions: Return-No Vomiting(24hrs) MARGARITA MATHUR MD Jun 07, 2022 14:00
[2022-06-07 14:31] VITALS: BP 112/85
[2022-06-07 14:45] LABS: BASOPHILS # (AUTO) 0.1 10^3/uL (0.0-0.1); BASOPHILS % (AUTO) 0 % (0-10); EOSINOPHILS # (AUTO) 0.2 10^3/uL (0.0-0.3); EOSINOPHILS % (AUTO) 1 % (0-10); HEMATOCRIT 48 % (35-52); HEMOGLOBIN 16.1 g/dL (11.5-16.0); LYMPHOCYTES # (AUTO) 3.2 10^3/uL (1.0-4.0); LYMPHOCYTES % (AUTO) 26 % (12-44); MEAN CORPUSCULAR HEMOGLOBIN 33 pg (25-34); MEAN CORPUSCULAR HGB CONC 34 g/dL (32-36); MEAN CORPUSCULAR VOLUME 96 fL (80-99); MEAN PLATELET VOLUME 12.4 fL (9.0-12.2); MONOCYTES # (AUTO) 0.9 10^3/uL (0.0-1.0); MONOCYTES % (AUTO) 8 % (0-12); NEUTROPHILS % (AUTO) 65 % (42-75); PLATELET COUNT 206 10^3/uL (130-400); WHITE BLOOD COUNT 12.4 10^3/uL (4.3-11.0)
[2022-06-07 15:03] LABS: SODIUM 138 MMOL/L (135-145)
[2022-06-07 15:04] LABS: ALANINE AMINOTRANSFERASE 14 U/L (0-55); ALBUMIN 4.6 GM/DL (3.2-4.5); ALKALINE PHOSPHATASE 68 U/L (40-136); BILIRUBIN,TOTAL 0.4 MG/DL (0.1-1.0); BUN/CREATININE RATIO 22; CARBON DIOXIDE 22 MMOL/L (21-32); CHLORIDE 100 MMOL/L (98-107); CREATININE SERUM 0.59 MG/DL (0.60-1.30); GFR ESTIMATED 108; GLUCOSE 98 MG/DL (70-105); LIPASE 16 U/L (8-78); MAGNESIUM 1.9 MG/DL (1.6-2.4); POTASSIUM 3.6 MMOL/L (3.6-5.0); TOTAL PROTEIN 7.4 GM/DL (6.4-8.2)
[2022-06-07] MEDS ORDERED: HEParin (CENTRAL IV FLUSH) 500 UNIT/5 ML SYR IV ONE (15:45)
== END 2022-06-07 15:30 | disposition home or self-care (01) ==
LOC: EDUNIT# 13:29 → ER FS 13:30
DX: R11.0 Nausea (principal); R19.7 Diarrhea, unspecified; D72.829 Elevated white blood cell count, unspecified
CPT/HCPCS: 36415; 80053; 83690; 83735; 85025; 99283

== ENCOUNTER 2022-09-29 18:20 | Observation (INO) | payer MEDICARE, MEDICAID ==
[~2022-09-29] VITALS: Ht 162.6 cm; Wt 66.5 kg
[2022-09-29] MEDS ORDERED: DroPERidol INJECTION 5 MG/2 ML (ED ONLY!) IV STA ×2 (18:26→20:43)
[2022-09-29] MEDS ORDERED: diphenhydrAMINE INJ 50 MG/ML VIAL IVP STA ×2 (18:26→19:39)
[2022-09-29] MEDS ORDERED: NS IV 1000 ML 1,000 ML IV STA ×3 (18:26→21:16)
[2022-09-29] MEDS ORDERED: PROCHLORPERAZINE 10 MG/2ML INJ (COMPAZINE) IV STA ×2 (18:26→19:39)
[2022-09-29 18:37] LABS: BASOPHILS # (AUTO) 0.1 10^3/uL (0.0-0.1); BASOPHILS % (AUTO) 1 % (0-10); EOSINOPHILS # (AUTO) 0.6 10^3/uL (0.0-0.3); EOSINOPHILS % (AUTO) 3 % (0-10); HEMATOCRIT 49 % (35-52); HEMOGLOBIN 17.1 g/dL (11.5-16.0); LYMPHOCYTES # (AUTO) 3.8 10^3/uL (1.0-4.0); LYMPHOCYTES % (AUTO) 19 % (12-44); MEAN CORPUSCULAR HEMOGLOBIN 34 pg (25-34); MEAN CORPUSCULAR HGB CONC 35 g/dL (32-36); MEAN CORPUSCULAR VOLUME 97 fL (80-99); MEAN PLATELET VOLUME 11.5 fL (9.0-12.2); MONOCYTES # (AUTO) 1.6 10^3/uL (0.0-1.0); MONOCYTES % (AUTO) 8 % (0-12); NEUTROPHILS # (AUTO) 13.5 10^3/uL (1.8-7.8); NEUTROPHILS % (AUTO) 68 % (42-75); PLATELET COUNT 244 10^3/uL (130-400); WHITE BLOOD COUNT 19.6 10^3/uL (4.3-11.0)
[2022-09-29 19:01] LABS: ALANINE AMINOTRANSFERASE 15 U/L (0-55); ALBUMIN 4.7 GM/DL (3.2-4.5); ALKALINE PHOSPHATASE 77 U/L (40-136); BILIRUBIN,TOTAL 0.3 MG/DL (0.1-1.0); BUN/CREATININE RATIO 15; CALCIUM 10.3 MG/DL (8.5-10.1); CARBON DIOXIDE 26 MMOL/L (21-32); CHLORIDE 95 MMOL/L (98-107); CREATININE SERUM 0.73 MG/DL (0.60-1.30); GFR ESTIMATED 99; GLUCOSE 151 MG/DL (70-105); LIPASE 15 U/L (8-78); MAGNESIUM 1.9 MG/DL (1.6-2.4); POTASSIUM 3.3 MMOL/L (3.6-5.0); SODIUM 137 MMOL/L (135-145); TOTAL PROTEIN 7.5 GM/DL (6.4-8.2)
--- NOTE | 2022-09-29 19:11 | ED GI ---
General Chief Complaint: Abdominal/GI Problems Stated Complaint: N/V Nursing Triage Note: Patient presents to the ED with c/o nausea and vomiting. States she has cyclic vomiting syndrome. Episode began 4 days ago. Unable to keep any food or fluids down. Also reports diarrhea, fever, and chills. Source of Information: Patient History of Present Illness Date Seen by Provider: Sep 29, 2022 Time Seen by Provider: 18:20 Initial Comments 52-year-old female presenting with complaints of 5 days of nausea, vomiting, diarrhea. She states that she has cyclic vomiting syndrome. She started her symptoms this episode on Saturday. She states that she has been unable to keep any food or fluids down. She normally is able to control things at home but was not able to get on top of this episode. She has subjective fever and chills as well as the nausea vomiting and diarrhea. She has decreased urine output. She thinks that Compazine is one of the medicines they gave her to try and help in the past. Her GI doctor is out of [facility]. She denies any acute trauma or reason to indicate worsening of her cyclic vomiting. Timing/Duration: 4-5 Days Severity/Quality: Severe, Cramping Location: Generalized Abdomen Activities at Onset: None Modifying Factors: Worsens With Movement, Worsens With Palpation, Worsens With Vomiting Associated Symptoms: No Back Pain, No Chest Pain, No Diaphoresis; Fever/Chills (subjective), Fatigue, Nausea/Vomiting; No Rash, No Shortness of Air, No Swelling/Mass in Abdomen, No Syncope; Weakness Allergies and Home Medications Allergies Coded Allergies: Sulfa (Sulfonamide Antibiotics) (Unverified Allergy, Unknown, 04/15/18) butorphanol (Unverified Allergy, Unknown, 04/15/18) codeine (Unverified Allergy, Unknown, 04/15/18) Patient Home Medication List Home Medication List Reviewed: Yes Amitriptyline HCl (Amitriptyline HCl) 50 Mg Tablet, 25 MG PO HS, (Reported) Entered as Reported by: ANTONIO BALTAZAR on 08/14/18 1645 Last Action: Reviewed Aspirin/Acetaminophen/Caffeine (Excedrin Migraine Caplet) 1 Each Tablet, 2 TAB PO Q6-8HR PRN for MIGRAINE, (Reported) Entered as Reported by: ANTONIO BALTAZAR on 08/14/18 1609 Last Action: Reviewed Buprenorphine (Buprenorphine) 1 Each Patch.tdwk, (Reported) Entered as Reported by: TONI FARLEY on 04/15/18253 Last Action: Reviewed Buprenorphine (Butrans) 1 Each Patch.tdwk, 15 MCG TD Fr, (Reported) Entered as Reported by: ANTONIO BALTAZAR on 08/14/18 163 Last Action: Reviewed Diclofenac Sodium (Diclofenac Sodium) 1 % Gel..gram., 100 GM TP TID Prescribed by: KANWAL DENTON on 03/31/222017 Last Action: Reviewed Estradiol (Estrace Tablet) 1 Mg Tablet, 1 MG PO DAILY, (Reported) Entered as Reported by: ANTONIO BALTAZAR on 08/14/181608 Last Action: Reviewed Famotidine (Acid Luggage Attendant (FAMOTIDINE)) 20 Mg Tablet, 20 MG PO BID, (Reported) Entered as Reported by: ANTONIO BALTAZAR on 08/14/181608 Last Action: Reviewed Hydrocodone/Acetaminophen (Hydrocodone-Acetamin 5-325 mg) 1 Each Tablet, 1 TAB PO Q6H PRN for PAIN-SEVERE (8-10) Prescribed by: ISABELLA SEGAL on 10/16/20 0521 Last Action: Reviewed Hyoscyamine Sulfate (Levsin-Sl) 0.125 Mg Tab.subl, 0.125 MG SL Q4H Prescribed by: VERONICA RAPHAEL on 08/09/20 185 Last Action: Reviewed Lamotrigine (Lamotrigine) 25 Mg Tablet, (Reported) Entered as Reported by: TONI FARLEY on 04/15/18253 Last Action: Reviewed Lamotrigine (Lamotrigine) 150 Mg Tablet, (Reported) Entered as Reported by: TONI FARLEY on 04/15/18253 Last Action: Reviewed Levocarnitine (l-Carnitine) 500 Mg Tablet, 500 MG PO DAILY, (Reported) Entered as Reported by: ANTONIO BALTAZAR on 08/14/181608 Last Action: Reviewed Levothyroxine Sodium (Levothyroxine Sodium) 175 Mcg Tablet, 175 MCG PO DAILY, (Reported) Entered as Reported by: NATONIO BALTAZAR on 08/14/181608 Last Action: Reviewed Mirtazapine (Mirtazapine) 30 Mg Tablet, (Reported) Entered as Reported by: TONI FARLEY on 04/15/18 0254 Last Action: Reviewed Naproxen (Naprosyn) 500 Mg Tablet, 500 MG PO BID PRN for PAIN-MILD (1-4) Prescribed by: KANWAL DENTON on 03/31/222017 Last Action: Reviewed Ondansetron (Ondansetron Odt) 4 Mg Tab.rapdis, 4 MG PO TID Prescribed by: VERONICA RAPHAEL on 08/09/20 185 Last Action: Reviewed Pregabalin (Lyrica) 100 Mg Capsule, 100 MG PO BID, (Reported) Entered as Reported by: ANTONIO BALTAZAR on 08/14/18 1609 Last Action: Reviewed Ubidecarenone/Vit E Acetate (Co Q-10 100 mg Softgel) 1 Each Capsule, 100 MG PO HS, (Reported) Entered as Reported by: ANTONIO BALTAZAR on 08/14/18 1609 Last Action: Reviewed Vitamin B Complex (Vitamin B Complex) 1 Each Capsule, 1 CAP PO HS, (Reported) Entered as Reported by: ANTONIO BALTAZAR on 08/14/18 1637 Last Action: Reviewed Review of Systems Review of Systems Constitutional: chills, fever (subjective) EENTM: No Symptoms Reported Respiratory: No Symptoms Reported Cardiovascular: Lightheadedness, Palpitations Gastrointestinal: Abdominal Pain (diffuse), Diarrhea, Nausea, Vomiting Genitourinary: Other (decreased output) Musculoskeletal: no symptoms reported Skin: No rash Psychiatric/Neurological: See HPI, Anxiety Past Xjywtlv-Mtkkbk-Exehav Hx Patient Social History Pt feels they are or have been: No Immunizations Up To Date Tetanus Booster (TDap): Less than 5yrs Seasonal Allergies Seasonal Allergies: No Past Medical History Surgery/Hospitalization HX: cholecystectomy, hysterectomy, cyclic vomiting syndrome, fibromyalgia, degenerative disc disease, emphysema Surgeries: Yes (Bilateral carpal tunnel, Nevro HF10 Spinal Cord Stimulator, Arthroscopy Rt) Section, Gallbladder, Hysterectomy, Tonsillectomy Respiratory: No Cardiac: No Neurological: Yes 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 Sexually Transmitted Disease: No HIV/AIDS: No Genitourinary: Yes Kidney Infection, Bladder Infection Gastrointestinal: No Musculoskeletal: Yes Osteoporosis, Fibromyalgia, Chronic Back Pain Endocrine: No HEENT: No Cancer: Yes Thyroid Did You Recieve Any Treatments: Yes What Type of Treatment Did You: Other Psychosocial: Yes Bipolar Integumentary: No Blood Disorders: No Family Medical History Cardiovascular disease 19 FATHER No Pertinent Family Hx Physical Exam Vital Signs Vital Signs - First Documented 09/29/22 18:20 Temp 35.9 Pulse 115 Resp 16 Pulse Ox 92 O2 Delivery Room Air Capillary Refill : Less Than 3 Seconds Height/Weight/BMI Height: 5'4.00" Weight: 100lbs. oz. [id number]; 23.00 BMI Method:Stated General Appearance: moderate distress, other (chronically ill appearing) Respiratory: chest non-tender, lungs clear, normal breath sounds, no respiratory distress, no accessory muscle use Cardiovascular: normal peripheral pulses, tachycardia Gastrointestinal: soft, no pulsatile mass, abnormal bowel sounds (hyperactive); No distended; guarding; No rebound; tenderness (diffuse) Rectal: deferred Extremities: normal range of motion, non-tender, normal capillary refill Back: no CVA tenderness Neurologic/Psychiatric: review nurse II-XII nml as tested, alert, oriented x 3 Skin: normal color, warm/dry; No rash Progress/Results/Core Measures Results/Orders Lab Results Laboratory Tests Test 09/29/22 18:30 09/29/22 22:30 Range/Units White Blood Count 19.6 H 4.3-11.0 10^3/uL Red Blood Count 5.04 3.80-5.11 10^6/uL Hemoglobin 17.1 H 11.5-16.0 g/dL Hematocrit 49 35-52 % Mean Corpuscular Volume 97 80-99 fL Mean Corpuscular Hemoglobin 34 25-34 pg Mean Corpuscular Hemoglobin Concent 35 32-36 g/dL Red Cell Distribution Width 12.8 10.0-14.5 % Platelet Count 244 130-400 10^3/uL Mean Platelet Volume 11.5 9.0-12.2 fL Immature Granulocyte % (Auto) 1 % Neutrophils (%) (Auto) 68 42-75 % Lymphocytes (%) (Auto) 19 12-44 % Monocytes (%) (Auto) 8 0-12 % Eosinophils (%) (Auto) 3 0-10 % Basophils (%) (Auto) 1 0-10 % Neutrophils # (Auto) 13.5 H 1.8-7.8 10^3/uL Lymphocytes # (Auto) 3.8 1.0-4.0 10^3/uL Monocytes # (Auto) 1.6 H 0.0-1.0 10^3/uL Eosinophils # (Auto) 0.6 H 0.0-0.3 10^3/uL Basophils # (Auto) 0.1 0.0-0.1 10^3/uL Immature Granulocyte # (Auto) 0.1 0.0-0.1 10^3/uL Neutrophils % (Manual) 78 % Lymphocytes % (Manual) 11 % Monocytes % (Manual) 6 % Eosinophils % (Manual) 5 % Sodium Level 137 135-145 MMOL/L Potassium Level 3.3 L 3.6-5.0 MMOL/L Chloride Level 95 L 98-107 MMOL/L Carbon Dioxide Level 26 21-32 MMOL/L Anion Gap 16 H 5-14 MMOL/L Blood Urea Nitrogen 11 7-18 MG/DL Creatinine 0.73 0.60-1.30 MG/DL Estimat Glomerular Filtration Rate 99 BUN/Creatinine Ratio 15 Glucose Level 151 H 70-105 MG/DL Calcium Level 10.3 H 8.5-10.1 MG/DL Corrected Calcium 8.5-10.1 MG/DL Magnesium Level 1.9 1.6-2.4 MG/DL Total Bilirubin 0.3 0.1-1.0 MG/DL Aspartate Amino Transf (AST/SGOT) 17 5-34 U/L Alanine Aminotransferase (ALT/SGPT) 15 0-55 U/L Alkaline Phosphatase 77 40-136 U/L Total Protein 7.5 6.4-8.2 GM/DL Albumin 4.7 H 3.2-4.5 GM/DL Lipase 15 8-78 U/L Urine Color YELLOW Urine Clarity CLEAR Urine pH 7.5 5-9 Urine Specific Mcmillan 1.020 1.016-1.022 Urine Protein NEGATIVE NEGATIVE Urine Glucose (UA) NEGATIVE NEGATIVE Urine Ketones 1+ H NEGATIVE Urine Nitrite NEGATIVE NEGATIVE Urine Bilirubin NEGATIVE NEGATIVE Urine Urobilinogen 0.2 < = 1.0 MG/DL Urine Leukocyte Esterase NEGATIVE NEGATIVE Urine RBC (Auto) NEGATIVE NEGATIVE Urine RBC 5-10 H /HPF Urine WBC 10-25 H /HPF Urine Squamous Epithelial Cells 25-50 H /HPF Urine Crystals NONE /LPF Urine Bacteria FEW H /HPF Urine Casts NONE /LPF Urine Mucus LARGE H /LPF Urine Yeast FEW H /HPF Urine Culture Indicated NO My Orders Orders - ENYART,ISABELLA E MD Comprehensive Metabolic Panel (09/29/22 18:26) Lipase (09/29/22 18:26) Ua Culture If Indicated (09/29/22 18:26) Ed Iv/Invasive Line Start (09/29/22 18:26) Cbc With Automated Diff (09/29/22 18:26) Magnesium (09/29/22 18:26) Ns Iv 1000 Ml (Sodium Chloride 0.9%) (09/29/22 18:26) Prochlorperazine Injection (Compazine In (09/29/22 18:26) Droperidol Injection (Ed Only) (Droperid (09/29/22 18:26) Diphenhydramine Injection (Diphenhydram (09/29/22 18:26) Implanted Port: Access (09/29/22 18:26) Manual Differential (09/29/22 18:30) Ns Iv 1000 Ml (Sodium Chloride 0.9%) (09/29/22 18:58) Prochlorperazine Injection (Compazine In (09/29/22 19:39) Diphenhydramine Injection (Diphenhydram (09/29/22 19:39) Dicyclomine Injection (Dicyclomine Injec (09/29/22 20:43) Droperidol Injection (Ed Only) (Droperid (09/29/22 20:43) Ns Iv 1000 Ml (Sodium Chloride 0.9%) (09/29/22 21:16) Ketorolac Injection (Toradol Injection) (09/29/22 23:04) Ondansetron Injection (Zofran Injectio (09/29/22 23:04) Lactated Ringers (Lr 1000 Ml Iv Solution (09/29/22 23:04) Pantoprazole Injection (Protonix Injecti (09/29/22 23:04) Potassium Cl 10meq/50ml Ivpb (Kcl 10 Meq (09/29/22 23:17) Ed Admission (Communication) (09/29/22 23:17) Vital Signs/I&O 09/29/22 18:20 Temp 35.9 Pulse 115 Resp 16 B/P (MAP) Pulse Ox 92 O2 Delivery Room Air Progress Progress Note #1: Progress Note Potential diagnosis of gastroenteritis, cyclic vomiting syndrome, electrolyte abnormality, UTI, viral syndrome. Obtain labs and access her implanted port. Send complete blood count, comprehensive metabolic profile, magnesium, lipase. Order urinalysis to look at hydration and look for infection. Administer normal saline 1 L IV fluid bolus for hydration and tachycardia. Droperidol 2.5 mg IV to try and help with the cyclic vomiting, Compazine 5 mg IV for nausea and vomiting since she reports that has helped in the past. Benadryl 25 mg IV to try and help with her cyclic vomiting syndrome symptoms. At this point she does not have any acute indication to do imaging of her abdomen pelvis since she reports this feels like her typical cyclic vomiting just has not been able to control it at home. Progress Note #2: Time: 19:08 Progress Note Heart rate is improving and is down to 104 from her initial 115 to 120 bpm. Ordered a second liter of normal saline IV fluid bolus as she still is not been able to provide a urine specimen. 1938 Patient complained that she was still nauseated and having cramping so repeat ordered with Compazine 5 mg IV in addition to Benadryl 25 mg IV were ordered. 2042 patient was continuing to complain of abdominal cramping. I added on a dose of Bentyl 20 mg IM in addition to the repeat dose of the droperidol 2.5 mg IV. Her labs showed white blood cell count was elevated to 19.6 with a normal differential of 70% neutrophils. She had elevated hemoglobin as well at 17.1. This is likely from hemoconcentration as her normal hemoglobin runs around 15. Her comprehensive metabolic panel showed mild hypokalemia with a sodium of 137 and potassium 3.3. Her renal function was normal with a BUN of 11 and crea tinine 0.73. Glucose slightly elevated to 151. Magnesium of 1.9. Lipase normal at 15. She still does not feel like she could provide a urine specimen. 2114 3rd L of normal saline ordered for additional hydration since patient still was not able to urinate. 2299 patient family was able to provide a urine specimen and it had shown a specific gravity of 1.020 and this was after 3 L of IV fluid. She had 1+ ketones. 25-50 epithelial cells for contamination. She did not have nitrites or leukocyte esterase to indicate a UTI. When discussing plan with the patient she still is complaining of nausea and abdominal cramping. However she has had no diarrhea or vomiting after arriving in the ED. I advised her that I could add in Toradol to try and help with the abdominal cramping as well as we could try Zofran and Protonix. However I am add an end of the medicines and treatments I can try through the emergency department. If she felt like her symptoms were so bad enough that she needed additional fluid and treatment I would need to try and check with the [facility] hospitalist about admission. Patient and spouse decided that they would rather try and stay in the hospital and see if anything can be improved beyond what it was currently. [address] Valenzuela resident physician for [facility]. I reviewed the patient's presentation as well as the history of prolonged cyclic vomiting and h aving episodes every 3 to 4 months. She has a port implanted to be able to get IV fluids. Her labs showed hemoconcentration as well as mild hypokalemia. She had still concentrated urine and 1+ ketones after 3 L of IV fluids. She has had repeated doses of droperidol, Benadryl, Compazine, initial dose of Bentyl, initial dose of Toradol and Zofran and Protonix. She was agreeable to observation admission of the patient and recommended getting IV potassium at least 10 mEq prior to admission. She we will place queued orders for the admit. She accepted the patient for admit with as the attending. Departure Communication (Admissions) Time/Spoke to Admitting Phy: 23:[address] Bowman about the admit and reviewed the patient's presentation as well as her history of cyclic vomiting. Advised that I had already spent 5 hours working with her trying to repeat medications IV fluids tried to help however she continues to complain of nausea and abdominal cramping. She did still have ketones in her urine after 3 L of IV fluid. Her labs show dehydration with hemoconcentration as she had an elevated white blood cell count with a normal differential and her comprehensive metabolic profile did not show any acute kidney injury but did have mild hypokalemia. She accepted the patient on behalf of Dr. Ballesteros and the [facility] service for admission and recommended an IV dose of potassium to help with her 3.3 potassium level. Impression Primary Impression: Cyclic vomiting syndrome Additional Impressions: Dehydration Hypokalemia Disposition: 30 STILL A PATIENT Condition: Stable Admissions Decision to Admit Reason: Admit from ER (General) Decision to Admit/Date: Sep 29, 2022 Time/Decision to Admit Time: 23:13 Departure-Patient Inst. Referrals: JOSE MENDOZA MD (PCP/Family) Primary Care Physician ISABELLA SEGAL MD Sep 29, 2022 19:11
[2022-09-29 19:19] LABS: EOSINOPHILS % (MANUAL) 5 %; LYMPHOCYTES % (MANUAL) 11 %; MONOCYTES % (MANUAL) 6 %; NEUTROPHILS % (MANUAL) 78 %
[2022-09-29] MEDS ORDERED: DICYCLOMINE 10 MG/ML 2 ML AMPULE IM STA (20:43)
[2022-09-29 22:43] LABS: BILIRUBIN,URINE NEGATIVE (NEGATIVE); CLARITY,URINE CLEAR; COLOR,URINE YELLOW; GLUCOSE, URINE (UA) NEGATIVE (NEGATIVE); KETONES,URINE 1+ (NEGATIVE); LEUKOCYTE ESTERASE ,URINE NEGATIVE (NEGATIVE); NITRITE,URINE NEGATIVE (NEGATIVE); PH,URINE 7.5 (5-9); PROTEIN,URINE NEGATIVE (NEGATIVE)
[2022-09-29 22:50] LABS: BACTERIA,URINE FEW /HPF; SQUAMOUS EPITHELIAL CELL,UR 25-50 /HPF
[2022-09-29 22:51] LABS: YEAST,URINE FEW /HPF
[2022-09-29] MEDS ORDERED: PANTOPRAZOLE 40 MG (PROTONIX) VIAL IV STA (23:04)
[2022-09-29] MEDS ORDERED: LACTATED RINGERS 1,000 ML IV STA (23:04)
[2022-09-29] MEDS ORDERED: ONDANSETRON 4 MG/2 ML (SDV) Z0FRAN IVP STA (23:04)
[2022-09-29] MEDS ORDERED: KETOROLAC INJ 15 MG/ML VIAL IVP STA (23:04)
[2022-09-29] MEDS ORDERED: POTASSIUM CL 10MEQ/50ML IVPB 50 ML IV STA (23:17)
[2022-09-30] VITALS (8 sets, daily range): BP systolic 107–134; BP diastolic 70–85
[2022-09-30] MEDS ORDERED: MELATONIN 3 MG TABLET PO PRN
[2022-09-30] MEDS ORDERED: ACETAMINOPHEN 325 MG TABLET PO PRN
[2022-09-30] MEDS ORDERED: NALOXONE 0.4 MG/ML 1 ML (NARCAN) VIAL IV PRN
[2022-09-30] MEDS ORDERED: ANTACID SUSP 30 ML UDC (MYLANTA) PO PRN
[2022-09-30] MEDS ORDERED: diphenhydrAMINE INJ 50 MG/ML VIAL IVP PRN
[2022-09-30] MEDS ORDERED: diphenhydrAMINE 25 MG TABLET PO PRN
[2022-09-30] MEDS ORDERED: ONDANSETRON 4 MG (ZOFRAN) ORAL DISSOLVE TAB PO PRN
[2022-09-30] MEDS ORDERED: NS IV 500 ML 500 ML IV PRN (00:15)
[2022-09-30] MEDS: NS IV 1000 ML 1,000 ML IV SCH ×4 (02:52→22:01)
[2022-09-30] MEDS: ACETAMINOPHEN 500 MG TABLET PO SCH ×3 (04:53→19:27)
[2022-09-30 05:13] LABS: HEMATOCRIT 40 % (35-52); HEMOGLOBIN 13.7 g/dL (11.5-16.0); MEAN CORPUSCULAR HEMOGLOBIN 34 pg (25-34); MEAN CORPUSCULAR HGB CONC 34 g/dL (32-36); MEAN CORPUSCULAR VOLUME 99 fL (80-99); MEAN PLATELET VOLUME 11.7 fL (9.0-12.2); PLATELET COUNT 180 10^3/uL (130-400); WHITE BLOOD COUNT 12.1 10^3/uL (4.3-11.0)
[2022-09-30 05:32] LABS: ALBUMIN 3.6 GM/DL (3.2-4.5); BILIRUBIN,TOTAL 0.5 MG/DL (0.1-1.0); CALCIUM 8.1 MG/DL (8.5-10.1); CREATININE SERUM 0.64 MG/DL (0.60-1.30); PHOSPHORUS 2.7 MG/DL (2.3-4.7); POTASSIUM 3.5 MMOL/L (3.6-5.0); TOTAL PROTEIN 5.6 GM/DL (6.4-8.2)
[2022-09-30] MEDS: POTASSIUM CL 10MEQ/50ML IVPB 50 ML IV SCH (06:04)
[2022-09-30] MEDS: POTASSIUM CHLORIDE 20 MEQ TABLET PO SCH (06:07)
--- NOTE | 2022-09-30 07:36 | History & Physical-Hospitalist ---
DANIELLE WESLEY MD 09/30/22 0736: History of Present Illness HPI/Chief Complaint CC: Vomiting Patient presented to the [place] ED yesterday night for persistent vomiting. She states this occurs every 6 to 8 months secondary to her cyclic vomiting syndrome. However yesterday's episode was worse than usual where it was unresolving despite multiple medications. She was also noting significant nausea and abdominal cramping. Denies any other symptoms. She feels that this episode may have been aggravated by recent increase in stress. Patient does sampson ve a port on the right side of her chest for administration of medications due to the frequency of her cyclic vomiting syndrome and difficulty in getting a line. This morning, patient is feeling mildly improved compared to yesterday however still having significant abdominal cramping and nausea. She has been unable to drink much on her clear liquid diet. Per the nurse, she was able to keep down this morning's medications so far. Date Seen 09/30/22 Time Seen by a Provider: 09:00 Attending Physician Gerri Connell MD PCP Admitting Physician: Lulu Conte DO Attending Physician: Lulu Conte DO Referring Physician Date of Admission Sep 30, 2022 at 01:20 Home Medications & Allergies Home Medications Reviewed patient Home Medication Reconciliation performed by pharmacy medication reconciliations cooling tower technician and/or nursing. Patients Allergies have been reviewed. Allergies Allergies Coded Allergies Sulfa (Sulfonamide Antibiotics) (Unverified Allergy, Unknown, 04/15/18) butorphanol (Unverified Allergy, Unknown, 04/15/18) codeine (Unverified Allergy, Unknown, 04/15/18) Past Sbukbkv-Uodhwt-Nekgae Hx Patient Social History Tobacco Use?: Yes Tobacco type used: Cigarettes Smoking Status: Current Someday Smoker Smokeless Tobacco Frequency: Never a User Use of E-Cig and/or Vaping dev: No Substance use?: Yes Substance type: Marijuana Alcohol Use?: No Pt feels they are or have been: No Immunizations Up To Date Tetanus Booster (TDap): Unknown Seasonal Allergies Seasonal Allergies: No Current Status Advance Directives: Unable to obtain Communicates: Verbally Primary Language: Tunisian Preferred Spoken Language: Tunisian Is interpretation needed?: No Implanted or Applied Medical D: Port-a-cath Past Medical History Surgeries: Section, Gallbladder, Hysterectomy, Tonsillectomy COPD 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 Sexually Transmitted Disease: No HIV/AIDS: No Kidney Infection, Bladder Infection Osteoporosis, Fibromyalgia, Chronic Back Pain Thyroid Did You Recieve Any Treatments: Yes What Type of Treatment Did You: Other Bipolar Blood Disorders: No Family Medical History Cardiovascular disease 19 FATHER No Pertinent Family Hx Review of Systems Constitutional: weakness EENTM: No nose congestion Respiratory: No cough, No dyspnea on exertion, No short of breath Cardiovascular: No chest pain, No edema, No palpitations Gastrointestinal: abdominal pain; No constipation, No diarrhea; nausea, vomiting Genitourinary: No decreased output, No dysuria Musculoskeletal: No back pain, No muscle pain Skin: No rash Psychiatric/Neurological: Headache Physical Exam Physical Exam Vital Signs Vital Signs - First Documented 09/29/22 09/30/22 18:20 00:40 Temp 35.9 Pulse 115 Resp 16 B/P (MAP) 175/86 Pulse Ox 92 O2 Delivery Room Air Capillary Refill : Less Than 3 Seconds Height, Weight, BMI Height: 5'4.00" Weight: 100lbs. oz. 45.039539ie; 25.15 BMI Method:Stated General Appearance: No Apparent Distress HEENT: Moist Mucous Membranes Neck: Full Range of Motion Respiratory: Chest Non Tender, Lungs Clear, Normal Breath Sounds, No Accessory Muscle Use, No Respiratory Distress Cardiovascular: Regular Rate, Rhythm, No Edema, No Murmur Gastrointestinal: No No Pulsatile Mass, No Non Tender; Other (Hyperactive bowel sounds, significant diffuse tenderness to palpation, worse in the epigastric area) Extremity: No Pedal Edema Neurologic/Psychiatric: Alert, Oriented x3 Skin: Warm/Dry Results Results/Procedures Labs Laboratory Tests 09/29/22 18:30 09/30/22 05:00 Patient resulted labs reviewed. Assessment/Plan Admission Diagnosis Cyclic vomiting syndrome Admission Status: Observation Assessment and Plan 52-year-old female presenting with persistent vomiting secondary to her her cyclic vomiting syndrome. Diagnosis/Problems Diagnosis/Problems (1) Cyclic vomiting syndrome Status: Acute Assessment & Plan: Patient has a history of cyclic vomiting syndrome We will keep multiple antiemetics on board Clear liquid diet, advance as tolerated Okay to use port in right side of chest to administer medications We will also administer antacids As needed pain medication for abdominal cramping (2) Dehydration Status: Acute Assessment & Plan: Evidenced by signs of dehydration on UA as well as patient history of vomiting Continue maintenance fluids until patient is able to tolerate a diet (3) Leukocytosis Assessment & Plan: Improving, likely reactive secondary to persistent vomiting Qualifiers: Leukocytosis type: unspecified Qualified Codes: D72.829 - Elevated white blood cell count, unspecified (4) COPD (chronic obstructive pulmonary disease) Status: Chronic Assessment & Plan: Continue home medications Patient states she uses 2 L of oxygen at night, continue while in the hospital Qualifiers: COPD type: unspecified COPD Qualified Codes: J44.9 - Chronic obstructive pulmonary disease, unspecified (5) History of thyroid cancer Status: Chronic Assessment & Plan: Patient is on Synthroid secondary to thyroidectomy Continue home medication (6) Smoking history Status: Chronic Assessment & Plan: Patient is a smoker, is currently trying to quit for an upcoming surgery Declined nicotine patch at this time (7) Fibromyalgia Status: Chronic Assessment & Plan: Continue home medications LULU CONTE DO 09/30/22 1627: History of Present Illness Source: patient Past Bousakt-Ogcwqv-Pdundu Hx Family Medical History Cardiovascular disease 19 FATHER Assessment/Plan Admission Diagnosis I performed a history and physical examination of the patient and discussed the management with the resident. I reviewed the residents note and agree with the documented findings and plan of care. Admission Status: Observation DANIELLE WESLEY MD Sep 30, 2022 07:36 LULU CONTE DO Sep 30, 2022 16:27
[2022-09-30] MEDS: FAMOTIDINE 20 MG TABLET PO SCH ×2 (08:05→19:27)
[2022-09-30] MEDS: ENOXAPARIN 40 MG/0.4 ML SYRINGE SC SCH (08:06)
[2022-09-30] MEDS: ONDANSETRON 4 MG/2 ML (SDV) Z0FRAN IV PRN ×2 (08:16→19:27)
[2022-09-30] MEDS ORDERED: POTASSIUM CHLORIDE 20 MEQ TABLET PO ONE (09:00)
[2022-09-30] MEDS ORDERED: FAMOTIDINE INJ 20MG/2ML VIAL IVP PRN (09:00)
[2022-09-30] MEDS: PROCHLORPERAZINE 10 MG/2ML INJ (COMPAZINE) IV PRN ×2 (11:17→22:01)
[2022-09-30] MEDS ORDERED: FLUT15.845 NS (11:33)
[2022-09-30] MEDS ORDERED: PANT40TA52 PO (11:35)
[2022-09-30] MEDS ORDERED: DULO30CA49 PO (11:40)
[2022-09-30] MEDS ORDERED: OXYB15TA19 PO (11:40)
[2022-09-30] MEDS ORDERED: ROSU5TAB13 PO (11:40)
[2022-09-30] MEDS ORDERED: DICY20TA PO (11:40)
[2022-09-30] MEDS ORDERED: SERT-414 PO (11:40)
[2022-09-30] MEDS ORDERED: SELE200T11 PO (11:40)
[2022-09-30] MEDS ORDERED: CHOL500050 PO (11:42)
[2022-09-30] MEDS ORDERED: ROSUVASTATIN 5 MG (CRESTOR) TABLET PO SCH (12:30)
[2022-09-30] MEDS ORDERED: RT-ALBUTEROL HFA 8.5 GM INHALER IH PRN (12:30)
[2022-09-30] MEDS: TIOTROPIUM INH 4 GM (SPIRIVA Respimat) IH SCH (12:35)
[2022-09-30 13:16] LABS: AMPHETAMINE SCREEN, URINE NEGATIVE (NEGATIVE); BARBITURATE SCREEN URINE NEGATIVE (NEGATIVE); BENZODIAZEPINES SCREEN URINE NEGATIVE (NEGATIVE); CANNABINOID SCREEN, URINE POSITIVE (NEGATIVE); COCAINE SCREEN URINE NEGATIVE (NEGATIVE); METHADONE STAT NEGATIVE (NEGATIVE); OPIATE SCREEN URINE NEGATIVE (NEGATIVE); OXYCODONE STAT NEGATIVE (NEGATIVE); PROPOXYPHENE STAT NEGATIVE (NEGATIVE); TRICYCLIC ANTIDEPRESSANTS SCRE NEGATIVE (NEGATIVE)
[2022-09-30] MEDS: PREGABALIN 150 MG (LYRICA) CAPSULE PO SCH ×2 (13:53→19:27)
[2022-09-30] MEDS: DULoxetine 30 MG CAPSULE PO SCH (19:27)
[2022-09-30] MEDS ORDERED: LOPERAMIDE 2 MG (IMODIUM) TABLET PO PRN (19:45)
[2022-10-01 03:29] VITALS: BP 115/66
[2022-10-01 03:41] LABS: HEMATOCRIT 39 % (35-52); HEMOGLOBIN 12.9 g/dL (11.5-16.0); MEAN CORPUSCULAR HEMOGLOBIN 33 pg (25-34); MEAN CORPUSCULAR HGB CONC 33 g/dL (32-36); MEAN CORPUSCULAR VOLUME 101 fL (80-99); MEAN PLATELET VOLUME 11.6 fL (9.0-12.2); PLATELET COUNT 184 10^3/uL (130-400); WHITE BLOOD COUNT 8.2 10^3/uL (4.3-11.0)
[2022-10-01 04:04] LABS: ALBUMIN 3.4 GM/DL (3.2-4.5); BILIRUBIN,TOTAL 0.2 MG/DL (0.1-1.0); CALCIUM 8.3 MG/DL (8.5-10.1); CREATININE SERUM 0.63 MG/DL (0.60-1.30); POTASSIUM 3.3 MMOL/L (3.6-5.0); TOTAL PROTEIN 5.3 GM/DL (6.4-8.2)
[2022-10-01] MEDS: ONDANSETRON 4 MG/2 ML (SDV) Z0FRAN IV PRN (04:09)
[2022-10-01] MEDS: ACETAMINOPHEN 500 MG TABLET PO SCH (04:09)
[2022-10-01] MEDS: POTASSIUM CL 10MEQ/50ML IVPB 50 ML IV SCH (04:15)
[2022-10-01] MEDS: POTASSIUM CHLORIDE 20 MEQ TABLET PO SCH (04:19)
[2022-10-01] MEDS: PROCHLORPERAZINE 10 MG/2ML INJ (COMPAZINE) IV PRN (04:30)
[2022-10-01] MEDS ORDERED: LEVOTHYROXINE 75 MCG (LEVOTHROID) TABLET PO SCH (06:30)
[2022-10-01] MEDS ORDERED: LEVOTHYROXINE 125 MCG (LEVOTHROID) TABLET PO SCH (06:30)
[2022-10-01 07:35] VITALS: BP 116/68
[2022-10-01] MEDS ORDERED: POTASSIUM CHLORIDE 20 MEQ TABLET PO ONE ×2 (08:00→12:00)
[2022-10-01] MEDS: TIOTROPIUM INH 4 GM (SPIRIVA Respimat) IH SCH (08:05)
[2022-10-01] MEDS: PREGABALIN 150 MG (LYRICA) CAPSULE PO SCH ×2 (08:52→12:52)
[2022-10-01] MEDS: FAMOTIDINE 20 MG TABLET PO SCH (08:52)
[2022-10-01] MEDS: DULoxetine 30 MG CAPSULE PO SCH (08:53)
[2022-10-01] MEDS: ENOXAPARIN 40 MG/0.4 ML SYRINGE SC SCH (08:53)
[2022-10-01] MEDS ORDERED: SERTRALINE 100 MG (ZOLOFT) TAB PO SCH (09:00)
[2022-10-01] MEDS ORDERED: ESTRADIOL 1 MG TAB (ESTRACE) PO SCH (09:00)
--- NOTE | 2022-10-01 09:08 | Progress Note - Hospitalist ---
Subjective HPI/CC On Admission Date Seen by Provider: Oct 01, 2022 Time Seen by Provider: 09:00 CC: Vomiting Patient presented to the [place] ED yesterday night for persistent vomiting. She states this occurs every 6 to 8 months secondary to her cyclic vomiting syndrome. However yesterday's episode was worse than usual where it was unresolving despite multiple medications. She was also noting significant nausea and abdominal cramping. Denies any other symptoms. She feels that this episode may have been aggravated by recent increase in stress. Patient does have a port on the right side of her chest for administration of medications due to the frequency of her cyclic vomiting syndrome and difficulty in getting a line. This morning, patient is feeling mildly improved compared to yesterday however still having significant abdominal cramping and nausea. She has been unable to drink much on her clear liquid diet. Per the nurse, she was able to keep down this morning's medications so far. Objective Exam Vital Signs Vital Signs Date Time Temp Pulse Resp B/P (MAP) Pulse Ox O2 Delivery O2 Flow Rate FiO2 10/01/22 11:32 36.4 74 18 118/79 (92) 97 Room Air Capillary Refill : Less Than 3 Seconds Results/Procedures Lab Laboratory Tests 10/01/22 03:36 Patient resulted labs reviewed. SHREYA CONTE DO Oct 01, 2022 09:08
[2022-10-01] MEDS ORDERED: SCOPOLAMINE 1.5 MG (TRANSDERM-SCOP) PATCH TD ONE (10:00)
[2022-10-01] MEDS: NS IV 1000 ML 1,000 ML IV SCH (10:05)
--- NOTE | 2022-10-01 10:22 | Physical Therapy Progress Note ---
Therapy Progress Note Patient declined need for skilled PT due to independent current LOF. RN confirms. No skilled PT indicated. VIVIAN NEIL PT Oct 01, 2022 10:22
[2022-10-01 11:32] VITALS: BP 118/79
--- NOTE | 2022-10-01 12:20 | Discharge Summary ---
Discharge Summary Hospital Course Was the Problem List Reviewed?: Yes Problems/Dx: (1) Cyclic vomiting syndrome Status: Acute (2) Dehydration Status: Acute (3) Leukocytosis Qualifiers: Qualified Codes: D72.829 - Elevated white blood cell count, unspecified (4) COPD (chronic obstructive pulmonary disease) Status: Chronic Qualifiers: Qualified Codes: J44.9 - Chronic obstructive pulmonary disease, unspecified (5) History of thyroid cancer Status: Chronic (6) Smoking history Status: Chronic (7) Fibromyalgia Status: Chronic Hospital Course Date of Admission: Sep 30, 2022 at 01:20 Admission Diagnosis : Family Physician/Provider: Gerri Connell MD Date of Discharge: 10/01/22 Discharge Diagnosis: [ ] Hospital Course: Uneventful hospital course after she was admitted for cyclic vomiting syndrome. Although THC was on her drug screen she told me that [facility] told her that THC does not cause vomiting syndrome. Overall she did very well scopolamine patch was added along with antiemetics and IV fluids Labs remained stable and she was discharged in improved condition. Labs and Pending Lab Test: Laboratory Tests 09/30/22 12:50: Urine Opiates Screen NEGATIVE, Urine Oxycodone Screen NEGATIVE, Urine Methadone Screen NEGATIVE, Urine Propoxyphene Screen NEGATIVE, Urine Barbiturates Screen NEGATIVE, Ur Tricyclic Antidepressants Screen NEGATIVE, Urine Phencyclidine Screen NEGATIVE, Urine Amphetamines Screen NEGATIVE, Urine Methamphetamines Screen NEGATIVE, Urine Benzodiazepines Screen NEGATIVE, Urine Cocaine Screen NEGATIVE, Urine Cannabinoids Screen POSITIVEH 10/01/22 03:36: White Blood Count 8.2, Red Blood Count 3.87, Hemoglobin 12.9, Hematocrit 39, Mean Corpuscular Volume 101H, Mean Corpuscular Hemoglobin 33, Mean Corpuscular Hemoglobin Concent 33, Red Cell Distribution Width 13.3, Platelet Count 184, Mean Platelet Volume 11.6, Sodium Level 142, Potassium Level 3.3L, Chloride Level 113H, Carbon Dioxide Level 21, Anion Gap 8, Blood Urea Nitrogen 3L, Creatinine 0.63, Estimat Glomerular Filtration Rate 107, BUN/Creatinine Ratio 5, Glucose Level 98, Calcium Level 8.3L, Corrected Calcium 8.8, Phosphorus Level 3.0, Total Bilirubin 0.2, Aspartate Amino Transf (AST/SGOT) 13, Alanine Aminotransferase (ALT/SGPT) 13, Alkaline Phosphatase 42, Total Protein 5.3L, Albumin 3.4 Home Meds Active Naprosyn (Naproxen) 500 Mg Tablet 500 Mg PO BID PRN . Ondansetron Odt (Ondansetron) 4 Mg Tab.rapdis 4 Mg PO TID Reported Vitamin D3 (Cholecalciferol (Vitamin D3)) 125 Mcg (5000 Unit) Capsule 125 Mcg PO UD TWICE WEEKLY WITH THREE DAYS BETWEEN DOSES Rosuvastatin Calcium 5 Mg Tablet 5 Mg PO UD TWICE WEEKLY WITH THREE DAYS IN BETWEEN DOSES Dicyclomine HCl 20 Mg Tablet 20 Mg PO TID Oxybutynin Chloride ER (Oxybutynin Chloride) 15 Mg Tab.er.24 15 Mg PO DAILY Selenium (Selenomethionine) 200 Mcg Tablet 200 Mcg PO DAILY Sertraline HCl 100 Mg Tablet 100 Mg PO DAILY Duloxetine HCl 30 Mg Capsule.dr 30 Mg PO BID Pantoprazole Sodium 40 Mg Tablet.dr 40 Mg PO DAILY Fluticasone Propionate 50 Mcg/Actuation [place].susp 15.8 Ml NS DAILY Excedrin Migraine Caplet (Aspirin/Acetaminophen/Caffeine) 1 Each Tablet 2 Tab PO Q6-8HR PRN Estrace Tablet (Estradiol) 1 Mg Tablet 1 Mg PO DAILY Lyrica (Pregabalin) 100 Mg Capsule 150 Mg PO TID LAST FILLED 08/30/22 #84 Levothyroxine Sodium 175 Mcg Tablet 125 Mcg PO DAILY Assessment/Pt Instructions PCP in 1 week Discharge Planning: <30 minutes discharge planning Discharge Instructions Discharge Diet: No Restrictions Discharge Physical Examination Vital Signs Vital Signs Date Time Temp Pulse Resp B/P (MAP) Pulse Ox O2 Delivery O2 Flow Rate FiO2 10/01/22 11:32 36.4 74 18 118/79 (92) 97 Room Air General Appearance: No Apparent Distress, WD/WN, Chronically ill Allergies: Coded Allergies: Sulfa (Sulfonamide Antibiotics) (Unverified Allergy, Unknown, 04/15/18) butorphanol (Unverified Allergy, Unknown, 04/15/18) codeine (Unverified Allergy, Unknown, 04/15/18) Discharge Summary Date of Admission Sep 30, 2022 at 01:20 Date of Discharge Discharge Date: Oct 01, 2022 Admission Diagnosis I performed a history and physical examination of the patient and discussed the management with the resident. I reviewed the residents note and agree with the documented findings and plan of care. Discharge Diagnosis (1) Cyclic vomiting syndrome Status: Acute Assessment & Plan: Patient has a history of cyclic vomiting syndrome We will keep multiple antiemetics on board Clear liquid diet, advance as tolerated Okay to use port in right side of chest to administer medications We will also administer antacids As needed pain medication for abdominal cramping (2) Dehydration Status: Acute Assessment & Plan: Evidenced by signs of dehydration on UA as well as patient history of vomiting Continue maintenance fluids until patient is able to tolerate a diet (3) Leukocytosis Assessment & Plan: Improving, likely reactive secondary to persistent vomiting Qualifiers: Qualified Codes: D72.829 - Elevated white blood cell count, unspecified (4) COPD (chronic obstructive pulmonary disease) Status: Chronic Assessment & Plan: Continue home medications Patient states she uses 2 L of oxygen at night, continue while in the hospital Qualifiers: Qualified Codes: J44.9 - Chronic obstructive pulmonary disease, unspecified (5) History of thyroid cancer Status: Chronic Assessment & Plan: Patient is on Synthroid secondary to thyroidectomy Continue home medication (6) Smoking history Status: Chronic Assessment & Plan: Patient is a smoker, is currently trying to quit for an upcoming surgery Declined nicotine patch at this time (7) Fibromyalgia Status: Chronic Assessment & Plan: Continue home medications SHREYA CONTE DO Oct 01, 2022 12:20
[2022-10-01 13:24] VITALS: BP 118/79
[2022-10-02] MEDS ORDERED: ROSUVASTATIN 5 MG (CRESTOR) TABLET PO SCH (21:00)
[2022-10-04] MEDS ORDERED: SCOPOLAMINE PATCH REMOVAL TP ONE (10:00)
== END 2022-10-01 12:51 | disposition home or self-care (01) ==
LOC: EDUNIT# 18:20 → ER FS 18:21 → 4TH 09-30 01:20
PROVIDERS: ADMIT Internal Medicine; ATTEND Internal Medicine
DX: R11.15 Cyclical vomiting syndrome unrelated to migraine (principal); E86.0 Dehydration; D72.829 Elevated white blood cell count, unspecified; J44.9 Chronic obstructive pulmonary disease, unspecified; M79.7 Fibromyalgia; E87.6 Hypokalemia; F17.210 Nicotine dependence, cigarettes, uncomplicated; Z85.850 Personal history of malignant neoplasm of thyroid
CPT/HCPCS: 36415; 80053; 80306; 81000; 83690; 83735; 84100; 85007; 85027; 94640; 94760; 96361; 96372; 96374; 96375; 96376; G0378

== ENCOUNTER 2022-12-28 14:32 | Emergency (ER) | payer MEDICARE, MEDICAID ==
[~2022-12-28] VITALS: Ht 162 cm; Wt 63.6 kg
[~2022-12-28 14:32] MED LIST changes: +CHOL500050 PO; -DICL100G13 TP; +DICL100G60 TP; +DICY20TA PO; +DULO30CA49 PO; +FAMO-356 PO; -FAMO20TA3 PO; +FLUT15.845 NS; +OXYB15TA19 PO; +PANT40TA52 PO; +ROSU5TAB13 PO; +SELE200T11 PO; +SERT-414 PO
[2022-12-28 14:38] VITALS: BP 117/89
[2022-12-28] MEDS ORDERED: NS IV 1000 ML 1,000 ML IV SCH (15:00)
[2022-12-28] MEDS ORDERED: PROCHLORPERAZINE INJ 10 MG/2ML VIAL ONE (15:00)
[2022-12-28] MEDS ORDERED: PROCHLORPERAZINE INJ 10 MG/2ML VIAL IV ONE (15:00)
[2022-12-28] MEDS ORDERED: NS IV 1000 ML 1,000 ML ONE (15:01)
[2022-12-28] MEDS ORDERED: DroPERidol INJECTION 5 MG/2 ML (ED ONLY!) ONE (15:01)
--- NOTE | 2022-12-28 15:01 | ED GI ---
General Chief Complaint: Abdominal/GI Problems Stated Complaint: VOMITING Nursing Triage Note: Pt presents to ER with complaints of vomiting x4 days. Pt also reports diarrhea x1 today with chills/shakes. Pt reports hx of cyclic vomiting syndrome and marijuana use Source of Information: Patient, Family Exam Limitations: No Limitations History of Present Illness Date Seen by Provider: Dec 28, 2022 Time Seen by Provider: 15:00 Initial Comments 52-year-old female presents to the ER complaining of vomiting x4 days intermittently. She has a history of cyclic vomiting syndrome and takes Reglan and Phenergan at home without relief. In the past she has gotten good relief with Compazine in the ER but has had to be admitted previously. No fever or chills reported. Abdominal pain is cramping and mild. Allergies and Home Medications Allergies Coded Allergies: Sulfa (Sulfonamide Antibiotics) (Unverified Allergy, Unknown, 04/15/18) butorphanol (Unverified Allergy, Unknown, 04/15/18) codeine (Unverified Allergy, Unknown, 04/15/18) Patient Home Medication List Home Medication List Reviewed: Yes Aspirin/Acetaminophen/Caffeine (Excedrin Migraine Caplet) 1 Each Tablet, 2 TAB PO Q6-8HR PRN for MIGRAINE, (Reported) Entered as Reported by: ANTONIO BALTAZAR on 08/14/18 160 Cholecalciferol (Vitamin D3) (Vitamin D3) 125 Mcg (5000 Unit) Capsule, 125 MCG PO UD, (Reported) Entered as Reported by: Shayla Arreola on 09/30/22 1142 Dicyclomine HCl (Dicyclomine HCl) 20 Mg Tablet, 20 MG PO TID, (Reported) Entered as Reported by: Shayla Arreola on 09/30/22 1140 Duloxetine HCl (Duloxetine HCl) 30 Mg Capsule.dr, 30 MG PO BID, (Reported) Entered as Reported by: Shayla Arreola on 09/30/22 1140 Estradiol (Estrace Tablet) 1 Mg Tablet, 1 MG PO DAILY, (Reported) Entered as Reported by: ANTONIO BALTAZAR on 08/14/18 1609 Fluticasone Propionate (Fluticasone Propionate) 50 Mcg/Actuation [place].susp, 15.8 ML NS DAILY, (Reported) Entered as Reported by: Shayla Arreola on 09/30/22 1133 Levothyroxine Sodium (Levothyroxine Sodium) 175 Mcg Tablet, 125 MCG PO DAILY, (Reported) Entered as Reported by: ANTONIO BALTAZAR on 08/14/18 1609 Naproxen (Naprosyn) 500 Mg Tablet, 500 MG PO BID PRN for PAIN-MILD (1-4) Prescribed by: KANWAL DENTON on 03/31/222017 Ondansetron (Ondansetron Odt) 4 Mg Tab.rapdis, 4 MG PO TID Prescribed by: VERONICA RAPHAEL on 08/09/20 185 Oxybutynin Chloride (Oxybutynin Chloride ER) 15 Mg Tab.er.24, 15 MG PO DAILY, (Reported) Entered as Reported by: Shayla Arreola on 09/30/22 114 Pantoprazole Sodium (Pantoprazole Sodium) 40 Mg Tablet.dr, 40 MG PO DAILY, (Reported) Entered as Reported by: Shayla Arreola on 09/30/22 1135 Pregabalin (Lyrica) 100 Mg Capsule, 150 MG PO TID, (Reported) Entered as Reported by: ANTONIO BALTAZAR on 08/14/18 1609 Rosuvastatin Calcium (Rosuvastatin Calcium) 5 Mg Tablet, 5 MG PO UD, (Reported) Entered as Reported by: Shayla Arreola on 09/30/22 1140 Selenomethionine (Selenium) 200 Mcg Tablet, 200 MCG PO DAILY, (Reported) Entered as Reported by: Shayla Arreola on 09/30/22 1140 Sertraline HCl (Sertraline HCl) 100 Mg Tablet, 100 MG PO DAILY, (Reported) Entered as Reported by: Shayla Arreola on 09/30/22 1140 Review of Systems Review of Systems Constitutional: see HPI (All other systems negative except as documented in HPI.) Past Quavokj-Gpjmel-Omycss Hx Patient Social History Tobacco Use?: Yes Tobacco type used: Cigarettes Smoking Status: Current Everyday Smoker Substance use?: Yes Substance type: Marijuana Alcohol Use?: Yes Alcohol Frequency: Rarely Immunizations Up To Date Tetanus Booster (TDap): Less than 5yrs Influenza Vaccine Up-to-Date: No; Not Current First/Initial COVID19 Vaccinat: vaccinated Seasonal Allergies Seasonal Allergies: No Past Medical History Surgery/Hospitalization HX: cholecystectomy, hysterectomy, cyclic vomiting syndrome, fibromyalgia, degenerative disc disease, emphysema, POTS Surgeries: Yes (Bilateral carpal tunnel, Nevro HF10 Spinal Cord Stimulator, Arthroscopy Rt) Section, Gallbladder, Hysterectomy, Tonsillectomy Respiratory: No COPD Cardiac: No Neurological: Yes 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 Sexually Transmitted Disease: No HIV/AIDS: No Genitourinary: Yes Kidney Infection, Bladder Infection Gastrointestinal: No Musculoskeletal: Yes Osteoporosis, Fibromyalgia, Chronic Back Pain Endocrine: No HEENT: No Cancer: Yes Thyroid Did You Recieve Any Treatments: Yes What Type of Treatment Did You: Other Psychosocial: Yes Bipolar Integumentary: No Blood Disorders: No Family Medical History Cardiovascular disease 19 FATHER No Pertinent Family Hx Physical Exam Vital Signs Vital Signs - First Documented 12/28/22 14:38 Temp 37.1 Pulse 109 Resp 16 B/P (MAP) 117/89 (98) Pulse Ox 96 O2 Delivery Room Air Capillary Refill : Height/Weight/BMI Height: 5'4.00" Weight: 100lbs. oz. 45.481817oy; 24.00 BMI Method:Stated General Appearance: no apparent distress HEENT: PERRL/EOMI, normal ENT inspection, TMs normal, pharynx normal Neck: non-tender, full range of motion, supple, normal inspection Respiratory: chest non-tender, lungs clear, normal breath sounds, no respiratory distress, no accessory muscle use Cardiovascular: normal peripheral pulses, regular rate, rhythm, no edema, no gallop, no JVD, no murmur Peripheral Pulses: 2+ Carotid (R), 2+ Carotid (L), 2+ Femoral (R), 2+ Femoral (L), 2+ Dorsalis Pedis (R), 2+ Left Dors-Pedis (L), 2+ Radial Pulses (R), 2+ Radial Pulses (L) Gastrointestinal: normal bowel sounds, soft, no organomegaly, no pulsatile mass, tenderness (Mild diffuse tenderness to palpation.) Rectal: normal exam Genital/Rectal: normal genital exam Extremities: normal range of motion, non-tender, normal inspection, no pedal edema, no calf tenderness, normal capillary refill, pelvis stable Pelvic: normal external exam, normal adnexa, no cerv. 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 as tested, no motor/sensory deficits, alert, normal mood/affect, oriented x 3 Skin: normal color, warm/dry Lymphatic: no adenopathy Progress/Results/Core Measures Results/Orders Lab Results Laboratory Tests Test 12/28/22 14:56 Range/Units White Blood Count 17.6 H 4.3-11.0 10^3/uL Red Blood Count 4.64 3.80-5.11 10^6/uL Hemoglobin 15.4 11.5-16.0 g/dL Hematocrit 44 35-52 % Mean Corpuscular Volume 95 80-99 fL Mean Corpuscular Hemoglobin 33 25-34 pg Mean Corpuscular Hemoglobin Concent 35 32-36 g/dL Red Cell Distribution Width 15.1 H 10.0-14.5 % Platelet Count 240 130-400 10^3/uL Mean Platelet Volume 11.6 9.0-12.2 fL Immature Granulocyte % (Auto) 1 % Neutrophils (%) (Auto) 70 42-75 % Lymphocytes (%) (Auto) 20 12-44 % Monocytes (%) (Auto) 9 0-12 % Eosinophils (%) (Auto) 1 0-10 % Basophils (%) (Auto) 0 0-10 % Neutrophils # (Auto) 12.3 H 1.8-7.8 10^3/uL Lymphocytes # (Auto) 3.6 1.0-4.0 10^3/uL Monocytes # (Auto) 1.5 H 0.0-1.0 10^3/uL Eosinophils # (Auto) 0.1 0.0-0.3 10^3/uL Basophils # (Auto) 0.1 0.0-0.1 10^3/uL Immature Granulocyte # (Auto) 0.1 0.0-0.1 10^3/uL Sodium Level 134 L 135-145 MMOL/L Potassium Level 3.1 L 3.6-5.0 MMOL/L Chloride Level 91 L 98-107 MMOL/L Carbon Dioxide Level 23 21-32 MMOL/L Anion Gap 20 H 5-14 MMOL/L Blood Urea Nitrogen 17 7-18 MG/DL Creatinine 0.53 L 0.60-1.30 MG/DL Estimat Glomerular Filtration Rate 111 BUN/Creatinine Ratio 32 Glucose Level 99 70-105 MG/DL Calcium Level 9.8 8.5-10.1 MG/DL Corrected Calcium 9.6 8.5-10.1 MG/DL Total Bilirubin 0.7 0.1-1.0 MG/DL Aspartate Amino Transf (AST/SGOT) 21 5-34 U/L Alanine Aminotransferase (ALT/SGPT) 21 0-55 U/L Alkaline Phosphatase 71 40-136 U/L Total Protein 7.2 6.4-8.2 GM/DL Albumin 4.3 3.2-4.5 GM/DL My Orders Orders - ENA CARTER DO Cbc And Automated Diff (12/28/22 14:57) Comprehensive Metabolic Panel (12/28/22 14:57) Ns Iv 1000 Ml (Ns Iv 1000 Ml) (12/28/22 15:00) Manual Differential (12/28/22 14:56) Prochlorperazine Injection (Prochlorpera (12/28/22 15:00) Droperidol Injection (Ed Only) (Droperid (12/28/22 15:01) Ns Iv 1000 Ml (Ns Iv 1000 Ml) (12/28/22 15:01) Droperidol Injection (Ed Only) (Droperid (12/28/22 15:15) Ketorolac Injection (Ketorolac Injection (12/28/22 16:00) Ketorolac Injection (Ketorolac Injection (12/28/22 15:51) Medications Given in ED Current Medications Medications Dose Ordered Sig/[place] Route Start Time Stop Time Status Last Admin Dose Admin Droperidol 5 mg STK-MED ONCE .ROUTE 12/28/22 15:01 12/28/22 15:04 DC 12/28/22 15:08 2.5 MG Ketorolac Tromethamine 30 mg ONCE ONCE IVP 12/28/22 16:00 12/28/22 16:01 12/28/22 15:54 30 MG Vital Signs/I&O 12/28/22 14:38 Temp 37.1 Pulse 109 Resp 16 B/P (MAP) 117/89 (98) Pulse Ox 96 O2 Delivery Room Air Blood Pressure Mean: 98 Progress Progress Note : Time: 15:01 Progress Note Patient seen for cyclic vomiting. Will give IV fluids, Droperidol, check labs. 1556: Labs stable with mild hypokalemia. Given the patient's ongoing emesis I am hesitant to replace this since it is only slightly low. Patient reports that she has not vomited since this morning. Currently complains of some abdominal pain so she has been given Toradol for this. We will send the patient home with a prescription for [place] and recommend she follow-up with her primary care physician for ongoing symptoms. Departure Impression Primary Impression: Cyclic vomiting syndrome Additional Impression: Hypokalemia Disposition: HOME, SELF-CARE Condition: Stable Departure-Patient Inst. Decision time for Depature: 15:57 Referrals: ANALY AVILES APRN (PCP) Primary Care Physician Please follow-up in the next 24 to 48 hours if your symptoms are not improving. [facility] (Family) Primary Care Physician Patient Instructions: Nausea and Vomiting, Adult (DC) Add. Discharge Instructions: Take small sips of water. Eat a bland diet. All discharge instructions reviewed with patient and/or family. Voiced understanding. Scripts Hydrocodone/Acetaminophen (Hydrocodone-Acetamin 5-325 mg) 5 Mg-325 Mg Tablet 1 TAB PO Q4H PRN for PAIN-MODERATE (5-7), #12 TAB Prov: ENA CARTER DO 12/28/22 ENA CARTER DO Dec 28, 2022 15:01
[2022-12-28 15:02] LABS: BASOPHILS # (AUTO) 0.1 10^3/uL (0.0-0.1); BASOPHILS % (AUTO) 0 % (0-10); EOSINOPHILS # (AUTO) 0.1 10^3/uL (0.0-0.3); EOSINOPHILS % (AUTO) 1 % (0-10); HEMATOCRIT 44 % (35-52); HEMOGLOBIN 15.4 g/dL (11.5-16.0); LYMPHOCYTES # (AUTO) 3.6 10^3/uL (1.0-4.0); LYMPHOCYTES % (AUTO) 20 % (12-44); MEAN CORPUSCULAR HEMOGLOBIN 33 pg (25-34); MEAN CORPUSCULAR HGB CONC 35 g/dL (32-36); MEAN CORPUSCULAR VOLUME 95 fL (80-99); MEAN PLATELET VOLUME 11.6 fL (9.0-12.2); MONOCYTES # (AUTO) 1.5 10^3/uL (0.0-1.0); MONOCYTES % (AUTO) 9 % (0-12); NEUTROPHILS # (AUTO) 12.3 10^3/uL (1.8-7.8); NEUTROPHILS % (AUTO) 70 % (42-75); PLATELET COUNT 240 10^3/uL (130-400); WHITE BLOOD COUNT 17.6 10^3/uL (4.3-11.0)
[2022-12-28] MEDS ORDERED: DroPERidol INJECTION 5 MG/2 ML (ED ONLY!) IV ONE (15:15)
[2022-12-28 15:18] LABS: BILIRUBIN,TOTAL 0.7 MG/DL (0.1-1.0); CALCIUM 9.8 MG/DL (8.5-10.1); POTASSIUM 3.1 MMOL/L (3.6-5.0); TOTAL PROTEIN 7.2 GM/DL (6.4-8.2)
[2022-12-28 15:20] LABS: ALBUMIN 4.3 GM/DL (3.2-4.5); CREATININE SERUM 0.53 MG/DL (0.60-1.30)
[2022-12-28] MEDS ORDERED: KETOROLAC INJ 30 MG/ML VIAL ONE (15:51)
[2022-12-28] MEDS ORDERED: ACHD5005 PO (15:58)
[2022-12-28] MEDS ORDERED: KETOROLAC INJ 30 MG/ML VIAL IVP ONE (16:00)
[2022-12-28] MEDS ORDERED: HEParin (CENTRAL IV FLUSH) 500 UNIT/5 ML SYR ONE (16:21)
[2022-12-28 16:23] LABS: EOSINOPHILS % (MANUAL) 1 %; LYMPHOCYTES % (MANUAL) 22 %; MONOCYTES % (MANUAL) 8 %; NEUTROPHILS % (MANUAL) 69 %
== END 2022-12-28 16:36 | disposition home or self-care (01) ==
LOC: EDUNIT# 14:32 → ER FS 14:34
DX: E87.6 Hypokalemia (principal); R10.84 Generalized abdominal pain; F17.210 Nicotine dependence, cigarettes, uncomplicated; Z88.5 Allergy status to narcotic agent; Z90.49 Acquired absence of other specified parts of digestive tract
CPT/HCPCS: 36415; 80053; 85007; 85027; 96361; 96374; 96375; 99281

== ENCOUNTER 2023-02-01 22:16 | Emergency (ER) | payer MEDICARE, MEDICAID ==
[~2023-02-01] VITALS: Ht 162 cm; Wt 65.7 kg
[2023-02-01 22:18] VITALS: BP 74/59
[2023-02-01] MEDS ORDERED: IBUPROFEN 600 MG TABLET PO STA (22:26)
[2023-02-01] MEDS ORDERED: AMOXICILLIN/Clavulanate 875 MG TABLET PO STA (22:26)
[2023-02-01] MEDS ORDERED: AMOX1TAB12 PO (22:34)
--- NOTE | 2023-02-01 22:34 | ED Upper Extremity ---
General Stated Complaint: DOG BITE,R HAND LAC Source: patient History of Present Illness Date Seen by Provider: Feb 01, 2023 Time Seen by Provider: 22:20 Initial Comments 53-year-old female presenting with complaints of dog bite to her right hand. She states the dog was up-to-date on shots. She feels like her last tetanus shot was within the last 5 years. She does have some pain at the site of the puncture wounds but is able to move all of her fingers and her thumb and has normal sensation. She states the dog was a family dog of her daughters. They cleaned the wound at home and bandaged it before coming to the emergency depa rtment. Onset: this evening Severity: moderate Pain/Injury Location: right hand Method of Injury: other (Dog bite) Modifying Factors: Worse With Movement Allergies and Home Medications Allergies Coded Allergies: Sulfa (Sulfonamide Antibiotics) (Unverified Allergy, Unknown, 04/15/18) butorphanol (Unverified Allergy, Unknown, 04/15/18) codeine (Unverified Allergy, Unknown, 04/15/18) Patient Home Medication List Home Medication List Reviewed: Yes Amoxicillin/Potassium Clav (Amox Tr-K Clv 875-125 mg Tab) 875 Mg-125 Mg Tablet, 1 EACH PO BID Prescribed by: ISABELLA SEGAL on 02/01/232233 Aspirin/Acetaminophen/Caffeine (Excedrin Migraine Caplet) 1 Each Tablet, 2 TAB PO Q6-8HR PRN for MIGRAINE, (Reported) Entered as Reported by: ANTONIO BALTAZAR on 08/14/18 1609 Cholecalciferol (Vitamin D3) (Vitamin D3) 125 Mcg (5000 Unit) Capsule, 125 MCG PO UD, (Reported) Entered as Reported by: Shayla Arreola on 09/30/22 1142 Dicyclomine HCl (Dicyclomine HCl) 20 Mg Tablet, 20 MG PO TID, (Reported) Entered as Reported by: Shayla Arreola on 09/30/22 1140 Duloxetine HCl (Duloxetine HCl) 30 Mg Capsule.dr, 30 MG PO BID, (Reported) Entered as Reported by: Shayla Arreola on 09/30/22 1140 Estradiol (Estrace Tablet) 1 Mg Tablet, 1 MG PO DAILY, (Reported) Entered as Reported by: ANTONIO BALTAZAR on 08/14/18 1609 Fluticasone Propionate (Fluticasone Propionate) 50 Mcg/Actuation [place].susp, 15.8 ML NS DAILY, (Reported) Entered as Reported by: Shayla Arreola on 09/30/22 1133 Hydrocodone/Acetaminophen (Hydrocodone-Acetamin 5-325 mg) 5 Mg-325 Mg Tablet, 1 TAB PO Q4H PRN for PAIN-MODERATE (5-7) Prescribed by: ENA CARTER on 12/28/22 1559 Levothyroxine Sodium (Levothyroxine Sodium) 175 Mcg Tablet, 125 MCG PO DAILY, (Reported) Entered as Reported by: ANTONIO BALTAZAR on 08/14/18 160 Naproxen (Naprosyn) 500 Mg Tablet, 500 MG PO BID PRN for PAIN-MILD (1-4) Prescribed by: KANWAL DENTON on 03/31/222017 Ondansetron (Ondansetron Odt) 4 Mg Tab.rapdis, 4 MG PO TID Prescribed by: VERONICA RAPHAEL on 08/09/20 185 Oxybutynin Chloride (Oxybutynin Chloride ER) 15 Mg Tab.er.24, 15 MG PO DAILY, (Reported) Entered as Reported by: Shayla Arreola on 09/30/22 114 Pantoprazole Sodium (Pantoprazole Sodium) 40 Mg Tablet.dr, 40 MG PO DAILY, (Reported) Entered as Reported by: Shayla Arreola on 09/30/22 1135 Pregabalin (Lyrica) 100 Mg Capsule, 150 MG PO TID, (Reported) Entered as Reported by: ANTONIO BALTAZAR on 08/14/18 1609 Rosuvastatin Calcium (Rosuvastatin Calcium) 5 Mg Tablet, 5 MG PO UD, (Reported) Entered as Reported by: Shayla Arreola on 09/30/22 1140 Selenomethionine (Selenium) 200 Mcg Tablet, 200 MCG PO DAILY, (Reported) Entered as Reported by: Shayla Arreola on 09/30/22 1140 Sertraline HCl (Sertraline HCl) 100 Mg Tablet, 100 MG PO DAILY, (Reported) Entered as Reported by: Shayla Arreola on 09/30/22 1140 Review of Systems Constitutional: No chills, No fever EENTM: no symptoms reported Respiratory: no symptoms reported Cardiovascular: no symptoms reported Gastrointestinal: no symptoms reported Genitourinary: no symptoms reported Musculoskeletal: see HPI Skin: see HPI Psychiatric/Neurological: Denies Numbness, Denies Weakness Past Bjtdsty-Bcoaht-Axvvzp Hx Immunizations Up To Date Tetanus Booster (TDap): Less than 5yrs First/Initial COVID19 Vaccinat: vaccinated Seasonal Allergies Seasonal Allergies: No Past Medical History Surgery/Hospitalization HX: cholecystectomy, hysterectomy, cyclic vomiting syndrome, fibromyalgia, degenerative disc disease, emphysema, POTS Surgeries: Yes (Bilateral carpal tunnel, Nevro HF10 Spinal Cord Stimulator, Arthroscopy Rt) Section, Gallbladder, Hysterectomy, Tonsillectomy Respiratory: No COPD Cardiac: No 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 Sexually Transmitted Disease: No HIV/AIDS: No Genitourinary: Yes Kidney Infection, Bladder Infection Gastrointestinal: No Musculoskeletal: Yes Osteoporosis, Fibromyalgia, Chronic Back Pain Endocrine: No HEENT: No Cancer: Yes Thyroid Did You Recieve Any Treatments: Yes What Type of Treatment Did You: Other Psychosocial: Yes Bipolar Integumentary: No Blood Disorders: No Family Medical History Cardiovascular disease 19 FATHER No Pertinent Family Hx Physical Exam Vital Signs Vital Signs - First Documented 02/01/23 22:18 Temp 36.9 Pulse 86 Resp 20 B/P (MAP) 74/59 (64) Pulse Ox 99 O2 Delivery Room Air Capillary Refill : Height, Weight, BMI Height: 5'4.00" Weight: 100lbs. oz. 45.694340zg; 24.00 BMI Method:Stated General Appearance: WD/WN, no apparent distress Cardiovascular: normal peripheral pulses Hand: normal ROM, laceration (2 small puncture wounds approximately 2 to 3 mm to the right hand on the base of the thumb and the webbing between the thumb and index finger.) Neurologic/Tendon: normal sensation, normal motor functions, normal tendon functions Neurologic/Psychiatric: alert, oriented x 3 Skin: warm/dry Progress/Results/Core Measures Results/Orders My Orders Orders - ISABELLA SEGAL MD Wound Dressing-Ed (02/01/23 22:25) Hand 3 View Right (02/01/23 22:25) Amoxicillin/Clavulanate Tablet (Amoxicil (02/01/23 22:26) Ibuprofen Tablet (Ibuprofen Tablet) (02/01/23 22:26) Vital Signs/I&O 02/01/23 22:18 Temp 36.9 Pulse 86 Resp 20 B/P (MAP) 74/59 (64) Pulse Ox 99 O2 Delivery Room Air Progress Progress Note #1: Progress Note Clean the wound with Betadine and sterile water. Apply dressing with antibiotic ointment. Start patient on Augmentin 875 1 p.o. twice daily. Ibuprofen 600 mg p.o. x 1 for pain. Continue with the Augmentin for the next 7 days. Obtain x- rays of the right hand to ensure there is no foreign body or bony involvement. Progress Note #2: Time: 22:36 Progress Note On my personal review and interpretation of the three-view films of the right hand I did not appreciate any acute bony abnormality or foreign body. Proceed with plan as above using Augmentin for 7 days and Tylenol and/or ibuprofen for pain. Keep hand elevated to help with pain and swelling. May apply ice 15 to 20 minutes every few hours as needed for pain and swelling. Encouraged to check back with primary care if having continued concerns or return if having signs of advancing infection. Diagnostic Imaging Diagonstic Imaging: Xray Plain Films/CT/US/NM/MRI: hand Reviewed: Reviewed by Me Departure Impression Primary Impression: Dog bite of right hand without complication Qualified Codes: S61.451A - Open bite of right hand, initial encounter; W54.0XXA - Bitten by dog, initial encounter Disposition: 01 HOME, SELF-CARE Condition: Stable Departure-Patient Inst. Decision time for Depature: 22:40 Referrals: ANALY AVILES APRN (PCP) Primary Care Physician [facility] (Family) Primary Care Physician Patient Instructions: Animal Bites ED Add. Discharge Instructions: Keep wound clean and dry for the next 24 hours. Then wash with soap and water and keep it clean. May apply triple antibiotic or Neosporin or bacitracin to the wound and cover with dressing. Take the full course of antibiotics to help prevent infection. Check back with primary care provider for continued concerns. May take acetaminophen and/or ibuprofen if needed for pain. If you see redness streaking up your arm, fever over 101 or pus draining from the bite wounds you would need to be seen right away as you may need IV antibiotics. Scripts Amoxicillin/Potassium Clav (Amox Tr-K Clv 875-125 mg Tab) 875 Mg-125 Mg Tablet 1 EACH PO BID for dog bite for 7 Days, #14 TAB 0 Refills Prov: ISABELLA SEGAL MD 02/01/23 ISABELLA SEGAL MD Feb 01, 2023 22:34
--- NOTE | 2023-02-02 07:49 | Diagnostic Imaging Report ---
INDICATION: Dog bite to right hand. AP, oblique and lateral views of the right hand are obtained. FINDINGS: No acute fracture or dislocation is identified. No abnormal lytic or sclerotic focus is seen, and there is no radiopaque foreign body. IMPRESSION: No acute abnormality. Dictated by: Dictated on workstation # [id number]
== END 2023-02-01 22:40 | disposition home or self-care (01) ==
LOC: EDUNIT# 22:16 → ER FS 22:18
DX: S61.451A Open bite of right hand, initial encounter (principal); W54.0XXA Bitten by dog, initial encounter
CPT/HCPCS: 73130